=== PATIENT | female | born 1960 | race Caucasian/White ===

== ENCOUNTER 2023-06-19 19:03 | Emergency (ER) | payer OTHER, SELFPAY ==
[2023-06-19] VITALS (18 sets, daily range): BP systolic 121; BP diastolic 85; PULSE 69–82; RESP 26; TEMP 36.6; O2SAT 95–99; BMI 55.8
--- NOTE | 2023-06-19 19:52 | ED_ITS ---
HPI - General Adult General Chief complaint: Shortness of Breath/Dyspnea Stated complaint: Short of breath Time Seen by Provider: 06/19/23 19:41 History of Present Illness HPI narrative: Pt arrives with BiPap in place . Pt has been sick w/ respiratory symptoms x 10 days. Worsened yesterday. Inspiratory and expiratory wheezes upon EMS arrival. Hx of sarcoidosis in bilateral lungs. Received Duoneb x 2 by EMS. Received 125mg Solumedrol @ 1850 per EMS. BG 130. 20G in R AC 63-year-old woman presenting to the emergency department with marked dyspnea in the setting of a history of sarcoidosis. Has been sick over the last 10+ days. 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 Has just completed a course of doxycycline. Is always maintained on 10 mg daily of prednisone and more recently initiated on Imuran. She has not needed home O2. Last night started to feel some tightness in her chest and had thickened phlegm and worsened over the course of today. She reports being quite wheezy and using her rescue inhaler with even just a few steps. She has been DuoNebbed twice by EMS. I would note how jittery she is on initial assessment. She was also given Solu- Medrol by EMS. Has not had a fever. Notes herself now feeling much better. Was placed briefly on BiPAP and now on OxyMask 2.5 L maintaining mid 90s on oxygen saturation. No particular exposures. Related Data Home Medications Medication Instructions Recorded Confirmed albuterol 90 mcg/actuation aerosol mcg inhalation 06/19/23 inhaler albuterol sulfate 1.25 mg/3 mL 1.25 mg inhalation Q6-8H PRN 06/19/23 06/19/23 solution for nebulization amlodipine 10 mg tablet 10 mg PO DAILY 06/19/23 06/19/23 aspirin 81 mg tablet,delayed 81 mg PO DAILY 06/19/23 06/19/23 release (Adult Aspirin Regimen) azathioprine 100 mg tablet 100 mg PO DAILY 06/19/23 06/19/23 cetirizine 10 mg tablet (All Day 10 mg PO DAILY 06/19/23 06/19/23 Allergy (cetirizine)) furosemide 40 mg tablet 40 mg PO DAILY PRN 06/19/23 06/19/23 hydralazine 25 mg tablet 25 mg PO BID 06/19/23 06/19/23 ipratropium 0.5 mg-albuterol 3 mg 3 ml inhalation Q4-6H PRN 06/19/23 06/19/23 (2.5 mg base)/3 mL nebulization soln magnesium gluconate 27 mg 27 mg PO BID 06/19/23 06/19/23 magnesium (500 mg) tablet metoprolol succinate 25 mg 25 mg PO BID 06/19/23 06/19/23 tablet,extended release 24 hr ondansetron 4 mg disintegrating 4 mg PO Q6-8H PRN 06/19/23 06/19/23 tablet prednisone 10 mg tablet 10 mg PO DAILY 06/19/23 06/19/23 sertraline 50 mg tablet 50 mg PO DAILY 06/19/23 06/19/23 Previous Rx's Medication Instructions Recorded ipratropium 0.5 mg-albuterol 3 mg 3 ml inhalation Q8H PRN #90 mL 06/19/23 (2.5 mg base)/3 mL nebulization soln Allergies Allergy/AdvReac Type Severity Reaction Status Date / Time amoxicillin Allergy Hives Verified 06/19/23 20:04 azithromycin Allergy Hives Verified 06/19/23 20:04 codeine Allergy Vomiting Verified 06/19/23 20:04 methotrexate Allergy Blurry Verified 06/19/23 20:04 Vision Penicillins Allergy Hives Verified 06/19/23 20:04 Review of Systems Status of ROS: Reports: 6 or more systems reviewed and unremarkable except as noted in History and below PFSH [facility] Social History Smoking Status: Former smoker How often do you have a drink containing alcohol: never AUDIT-C Alcohol total score: 0 Non-prescribed substance use: marijuana (any form) Exam Narrative: Exam Narrative: Attended by family. Extremely tremulous. A little breathless/tachypneic but able to carry on a conversation without significant difficulty. Lungs with diffuse breath sounds and good air movement. I do not hear any wheeze at this time. Subtly coarse sounds throughout the lungs. Oropharynx is sticky. Cranial nerves 2-12 look to be intact. Heart is in an elevated and regular rate. Distant. Abdomen obese soft. Lower extremity changes more consistent with body habitus than edema. Appears well-perfused peripherally. Skin without apparent rash. Did not examine for intertrigo. Const: Vital Signs, click to edit/add: Vital Signs - 24 hr 06/19/23 19:10 06/19/23 19:15 06/19/23 19:16 Temperature Pulse Rate 81 78 72 Pulse Rate [Pulse Oximeter] Respiratory Rate Blood Pressure 121/85 Blood Pressure [Ri ght Upper Arm] Pulse Oximetry 99 99 99 Oxygen Delivery Me thod Oxygen Flow Rate 06/19/23 19:22 06/19/23 19:30 06/19/23 19:45 Temperature 97.8 F Pulse Rate 78 74 Pulse Rate [Pulse Oximeter] 82 Respiratory Rate 26 H Blood Pressure Blood Pressure [Ri ght Upper Arm] 121/85 Pulse Oximetry 98 99 98 Oxygen Delivery Me thod OxyMask Oxygen Flow Rate 5 06/19/23 20:00 06/19/23 20:15 06/19/23 20:30 Temperature Pulse Rate 74 77 81 Pulse Rate [Pulse Oximeter] Respiratory Rate Blood Pressure Blood Pressure [Ri ght Upper Arm] Pulse Oximetry 98 97 97 Oxygen Delivery Me thod Oxygen Flow Rate 06/19/23 20:45 06/19/23 21:00 06/19/23 21:15 Temperature Pulse Rate 79 78 73 Pulse Rate [Pulse Oximeter] Respiratory Rate Blood Pressure Blood Pressure [Ri ght Upper Arm] Pulse Oximetry 96 97 96 Oxygen Delivery Me thod Oxygen Flow Rate 06/19/23 21:30 06/19/23 21:45 06/19/23 22:00 Temperature Pulse Rate 69 82 74 Pulse Rate [Pulse Oximeter] Respiratory Rate Blood Pressure Blood Pressure [Ri ght Upper Arm] Pulse Oximetry 97 98 97 Oxygen Delivery Me thod Oxygen Flow Rate 06/19/23 22:15 06/19/23 22:30 06/19/23 22:45 Temperature Pulse Rate 82 80 79 Pulse Rate [Pulse Oximeter] Respiratory Rate Blood Pressure Blood Pressure [Ri ght Upper Arm] Pulse Oximetry 97 95 96 Oxygen Delivery Me thod Oxygen Flow Rate Documenting provider has reviewed patient's vital signs: yes Course Vital Signs Vital signs: Initial Vital Signs Pulse Rate 81 06/19/23 19:10 Pulse Oximetry 99 06/19/23 19:10 Vital Signs Pulse Rate 81 06/19/23 19:10 Pulse Oximetry 99 06/19/23 19:10 Temperature 97.8 F 06/19/23 19:22 Pulse Rate 79 06/19/23 22:45 Respiratory Rate 26 H 06/19/23 19:22 Blood Pressure 121/85 06/19/23 19:22 Pulse Oximetry 96 06/19/23 22:45 Oxygen Delivery Method OxyMask 06/19/23 19:22 Oxygen Flow Rate 5 06/19/23 19:22 Medications Administered Medications: Discontinued Medications Generic Name Dose Route Start Last Admin Trade Name Freq PRN Reason Stop Dose Admin Albuterol/Ipratropium 2 neb 06/19/23 23:20 06/19/23 23:41 Iprat-Albut 0.5-2.5 Mg/3 Ml Neb IH 06/19/23 23:21 Not Given ONCE ONE Medical Decision Making MDM Narrative Medical decision making narrative: I suspect possibly some mucous plugging and after conversation with Ms. Pennington exacerbating reactive airway and probable significant exacerbation of anxiety as well. Has been treated virtually in should be assessed for potential pneumonia, possibly pulmonary embolus, pneumothorax. I wonder if has been overdosing with albuterol and potentially exacerbating her symptoms. Continued on OxyMask and will be working at weaning. Pending effect of Solu- Medrol. Labs are overall reassuring. VBG's were obtained following initial treatment and perhaps less useful. CRP elevated at 3.5 though perhaps not unexpectedly. One-view Chest x-ray reviewed by me with diffuse mild interstitial prominence. No infiltrate Radiology over-read as below Findings/Impression: Cardiac size within normal limits. The monique are mildly prominent which may be related to the patient`s history of sarcoidosis. Normal pulmonary vasculature. No focal infiltrate, effusion, or pneumothorax. No acute osseous abnormality. Did discuss this case with our hospitalist with concerns of potential admission however I was anticipating continued improvement here in the department and likely discharge. Noted by hospitalist upon review of records was recommendation for sleep study. I did discuss this with Ms. Pennington and she anticipates going forward with this; sounds like it might be a remote assessment. She continued to improve over time in the emergency department. No events on cardiac/vascular sonographer. Oxygen saturation mid to upper 90s on room air. Did desat with ambulation but recovered very quickly. Noted herself to feel ?110% better?. See patient discharge plan Medical Records Medical records reviewed: Yes I reviewed the patient's medical records Lab Data Lab results reviewed: Yes I reviewed the patient's lab results Labs: Lab Results 06/19/23 06/19/23 06/19/23 Range/Units 20:24 20:28 20:28 WBC 9.31 (4.50-11.00) K/uL RBC 4.36 (4.00-5.20) m/uL Hgb 11.0 L (12.0-16.0) gm/dL Hct 36.8 (33.0-51.0) % MCV 84 (80-100) fL MCH 25 L (26-34) pg MCHC 30 L (32-36) gm/dL RDW Coeff of Donna 17.7 H (11.5-15.5) % Plt Count 311 (140-440) K/uL Neut % (Auto) 95.8 H (42.0-72.0) % Lymph % (Auto) 2.4 L (20-44) % [place] % (Auto) 1.4 (0.0-11.0) % Eos % (Auto) 0.0 (0.0-7.0) % Baso % (Auto) 0.1 (0.0-3.0) % Neut # (Auto) 8.90 H (1.7-7.0) K/uL Lymph # (Auto) 0.20 L (0.90-2.90) K/uL [place] # (Auto) 0.10 (0.00-0.90) K/UL Eos # (Auto) 0.00 (0.00-0.50) K/uL Baso # (Auto) 0.01 (0.00-0.30) K/uL Abs Immat Gran (auto) 0.03 (0.00-0.30) K/uL Imm/Tot Granulo (auto) 0.3 % VBG pH (7.32-7.43) VBG pCO2 (40-50) mmHG VBG pO2 (25-47) mmHG VBG HCO3 (21-28) mmol/L Sodium 142 (135-149) mmol/L Potassium 3.8 (3.6-5.1) mmol/L Chloride 106 (96-114) mmol/L Carbon Dioxide 24 (20-32) mmol/L Anion Gap 12 (7-15) mEq/L BUN 9 (7-30) mg/dL Creatinine 1.0 (0.5-1.5) mg/dL Estimated Creat Clear 50.37 Estimated GFR 64 ml/min Glucose 133 H (60-115) mg/dL Calcium 9.3 (8.4-10.6) mg/dL Magnesium 2.1 Cancelled (1.5-2.6) mg/dL C-Reactive Protein 3.5 H (0.5-1.0) mg/dL SARS-CoV-2 (PCR) Negative SARS-CoV-2 (Negative) Influenza Type A (PCR) Negative PCR FLU A (Negative) Influenza Type B (PCR) Negative PCR FLU B (Negative) RSV (PCR) Negative PCR RSV (Negative) 06/19/23 Range/Units 20:49 WBC (4.50-11.00) K/uL RBC (4.00-5.20) m/uL Hgb (12.0-16.0) gm/dL Hct (33.0-51.0) % MCV (80-100) fL MCH (26-34) pg MCHC (32-36) gm/dL RDW Coeff of Donna (11.5-15.5) % Plt Count (140-440) K/uL Neut % (Auto) (42.0-72.0) % Lymph % (Auto) (20-44) % [place] % (Auto) (0.0-11.0) % Eos % (Auto) (0.0-7.0) % Baso % (Auto) (0.0-3.0) % Neut # (Auto) (1.7-7.0) K/uL Lymph # (Auto) (0.90-2.90) K/uL [place] # (Auto) (0.00-0.90) K/UL Eos # (Auto) (0.00-0.50) K/uL Baso # (Auto) (0.00-0.30) K/uL Abs Immat Gran (auto) (0.00-0.30) K/uL Imm/Tot Granulo (auto) % VBG pH 7.411 (7.32-7.43) VBG pCO2 37 L (40-50) mmHG VBG pO2 71.4 H (25-47) mmHG VBG HCO3 24 (21-28) mmol/L Sodium (135-149) mmol/L Potassium (3.6-5.1) mmol/L Chloride (96-114) mmol/L Carbon Dioxide (20-32) mmol/L Anion Gap (7-15) mEq/L BUN (7-30) mg/dL Creatinine (0.5-1.5) mg/dL Estimated Creat Clear Estimated GFR ml/min Glucose (60-115) mg/dL Calcium (8.4-10.6) mg/dL Magnesium (1.5-2.6) mg/dL C-Reactive Protein (0.5-1.0) mg/dL SARS-CoV-2 (PCR) (Negative) Influenza Type A (PCR) (Negative) Influenza Type B (PCR) (Negative) RSV (PCR) (Negative) ECG Data Attestation: I personally reviewed and interpreted this ECG as follows: (Normal sinus rhythm, baseline irritability, rate of 80 without apparent ischemic changes.) Discharge Plan Discharge Clinical Impression: Respiratory failure, Anxiety, Sarcoidosis Patient Disposition: Home w/ Parent or Adult Condition: Improved Additional Instructions: Sounds like this all may have been a combination of underlying sarcoidosis, mucus production/plugging, reactive airway/asthma worsened by anxiety. You gotten all the steroid that you need for today and into part of tomorrow. Please call to your pulmonology clinic tomorrow to see how they might like to dose you on steroids over the next week or 2. I appreciate how they are available and involved in your care. EMS gave you 125 mg of Solu-Medrol. They also gave you to DuoNebs. You were briefly on BiPAP. Please move forward with scheduling the sleep study. We are discharging you with DuoNebs and a prescription of more to fill. If the pulmonology clinic is okay with this, I would dose your DuoNebs regularly 3 times a day over the next 3-4 days. Can use albuterol if needed between. 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 Although you probably could probably get by dosing the prednisone that you have currently per their recommendations. Prescriptions: New ipratropium-albuterol 0.5 mg-3 mg(2.5 mg base)/3 mL solution for nebulization 3 ml inhalation Q8H PRNQty: 90 0RF No Action albuterol 90 mcg/actuation aerosol inhalation hydralazine 25 mg tablet 25 mg PO BID metoprolol succinate 25 mg tablet extended release 24 hr 25 mg PO BID amlodipine 10 mg tablet 10 mg PO DAILY azathioprine 100 mg tablet 100 mg PO DAILY magnesium gluconate 27 mg magnesium (500 mg) tablet 27 mg PO BID aspirin [Adult Aspirin Regimen] 81 mg tablet,delayed release (DR/EC) 81 mg PO DAILY albuterol sulfate 1.25 mg/3 mL solution for nebulization 1.25 mg inhalation Q6-8H PRN ipratropium-albuterol 0.5 mg-3 mg(2.5 mg base)/3 mL solution for nebulization 3 ml inhalation Q4-6H PRN prednisone 10 mg tablet 10 mg PO DAILY cetirizine [All Day Allergy (cetirizine)] 10 mg tablet 10 mg PO DAILY sertraline 50 mg tablet 50 mg PO DAILY ondansetron 4 mg tablet,disintegrating 4 mg PO Q6-8H PRN furosemide 40 mg tablet 40 mg PO DAILY PRN Follow Up/Referrals: Provider,Not a Local [Primary Care Provider] - Stand Alone Forms: [employer] Info Instructions
--- NOTE | 2023-06-19 20:03 | CRLHL7_ITS ---
For Patients: As a result of the Cures Act, medical imaging exams and procedure reports are released immediately into your electronic medical record. You may view this report before your referring provider. If you have questions, please contact your health care provider. Indication: Hypoxia, history of sarcoid Technique: Chest 1 view Comparison: None Findings/Impression: Cardiac size within normal limits. The monique are mildly prominent which may be related to the patient`s history of sarcoidosis. Normal pulmonary vasculature. No focal infiltrate, effusion, or pneumothorax. No acute osseous abnormality. Dictated by Savannah Meek MD @ 06/19/2023 9:46:43 PM (Electronically Signed)
[2023-06-19 20:36] LABS: Basophils Absolute Auto 0.01 K/uL (0.00-0.30); Basophils Percent Auto 0.1 % (0.0-3.0); Hematocrit 36.8 % (33.0-51.0); Immature Granulocytes Abs Auto 0.03 K/uL (0.00-0.30); Immature Granulocytes Pct Auto 0.3 %; Lymphocytes Percent Auto 2.4 % (20-44); Mean Corpuscular HGB Conc 30 gm/dL (32-36); Mean Corpuscular Hemoglobin 25 pg (26-34); Mean Corpuscular Volume 84 fL (80-100); Monocytes Percent Auto 1.4 % (0.0-11.0); Neutrophils Percent Auto 95.8 % (42.0-72.0); Platelet Count* 311 K/uL (140-440); RDW Coefficient of Variation % 17.7 % (11.5-15.5); Red Blood Count 4.36 m/uL (4.00-5.20); White Blood Count* 9.31 K/uL (4.50-11.00)
[2023-06-19 20:40] LABS: Slide Review Reflex No
[2023-06-19 20:50] LABS: Chloride* 106 mmol/L (96-114); Sodium* 142 mmol/L (135-149)
[2023-06-19 20:51] LABS: Potassium* 3.8 mmol/L (3.6-5.1)
[2023-06-19 20:53] LABS: Est. Creatinine Clearance* 50.37; Estimated Glomerular Filt Rate 64 ml/min
[2023-06-19 20:54] LABS: Anion Gap 12 mEq/L (7-15); Blood Urea Nitrogen* 9 mg/dL (7-30); Calcium* 9.3 mg/dL (8.4-10.6); Carbon Dioxide* 24 mmol/L (20-32); Glucose* 133 mg/dL (60-115); Magnesium* 2.1 mg/dL (1.5-2.6)
[2023-06-19 20:56] LABS: HCO3 VBG 24 mmol/L (21-28); PCO2 VBG 37 mmHG (40-50); PO2 VBG 71.4 mmHG (25-47); pH VBG 7.411 (7.32-7.43)
[2023-06-19 20:57] LABS: C Reactive Protein* 3.5 mg/dL (0.5-1.0)
[2023-06-19 21:14] LABS: PCR FLU A Negative PCR FLU A (Negative); PCR FLU B Negative PCR FLU B (Negative); PCR RSV Negative PCR RSV (Negative)
[2023-06-19 21:18] LABS: SARS PCR* Negative SARS-CoV-2 (Negative)
--- NOTE | 2023-06-19 23:42 | ED.NURSE ---
ordered josue cronin to be sent home with pt as they are not in the instymed
== END 2023-06-20 00:05 | disposition home or self-care (01) ==
PROVIDERS: Emergency Provider Family Medicine
DX: J96.90 Respiratory failure, unspecified, unspecified whether with hypoxia or hypercapnia (principal); F41.9 Anxiety disorder, unspecified; D86.9 Sarcoidosis, unspecified
CPT/HCPCS: 36415; 71045; 80048; 82803; 83735; 85025; 86140; 87631; 93005; 94761; 99284; 99285

== ENCOUNTER 2023-07-07 14:46 | Observation (INO) | payer OTHER, SELFPAY ==
[2023-07-07 15:00] VITALS: BP 150/83; PULSE 72; RESP 32; TEMP 36.8; O2SAT 93; BMI 55.8
--- NOTE | 2023-07-07 15:06 | ED_ITS ---
HPI - SOB/Dyspnea General Time Seen by Provider: 15:06 Date Seen: 07/07/23 Chief Complaint: Shortness of Breath/Dyspnea Stated Complaint: Low O2 Time Seen by Provider: 07/07/23 15:00 Source: patient Mode of arrival: ambulatory Limitations: no limitations History of Present Illness HPI Narrative: 63-year-old female who presents today with shortness of breath. Patient has history of sarcoidosis, anxiety, hypertension. Notes increased shortness of breath for last couple of days, also pain in the right side of the chest when she breathes. Denies fevers, cough, runny nose, nausea, vomiting, diarrhea. Chronic swelling of the bilateral lower extremities which he says is stable. Using DuoNebs and also on chronic prednisone currently 10 mg daily. Related Data Home Medications Medication Instructions Recorded Confirmed albuterol 90 mcg/actuation aerosol mcg inhalation 06/19/23 inhaler albuterol sulfate 1.25 mg/3 mL 1.25 mg inhalation Q6-8H PRN 06/19/23 06/19/23 solution for nebulization amlodipine 10 mg tablet 10 mg PO DAILY 06/19/23 06/19/23 aspirin 81 mg tablet,delayed 81 mg PO DAILY 06/19/23 06/19/23 release (Adult Aspirin Regimen) azathioprine 100 mg tablet 100 mg PO DAILY 06/19/23 06/19/23 cetirizine 10 mg tablet (All Day 10 mg PO DAILY 06/19/23 06/19/23 Allergy (cetirizine)) furosemide 40 mg tablet 40 mg PO DAILY PRN 06/19/23 06/19/23 hydralazine 25 mg tablet 25 mg PO BID 06/19/23 06/19/23 ipratropium 0.5 mg-albuterol 3 mg 3 ml inhalation Q4-6H PRN 06/19/23 06/19/23 (2.5 mg base)/3 mL nebulization soln magnesium gluconate 27 mg 27 mg PO BID 06/19/23 06/19/23 magnesium (500 mg) tablet metoprolol succinate 25 mg 25 mg PO BID 06/19/23 06/19/23 tablet,extended release 24 hr ondansetron 4 mg disintegrating 4 mg PO Q6-8H PRN 06/19/23 06/19/23 tablet prednisone 10 mg tablet 10 mg PO DAILY 06/19/23 06/19/23 sertraline 50 mg tablet 50 mg PO DAILY 06/19/23 06/19/23 Previous Rx's Medication Instructions Recorded ipratropium 0.5 mg-albuterol 3 mg 3 ml inhalation Q8H PRN #90 mL 06/19/23 (2.5 mg base)/3 mL nebulization soln Allergies Allergy/AdvReac Type Severity Reaction Status Date / Time amoxicillin Allergy Hives Verified 06/19/23 20:04 azithromycin Allergy Hives Verified 06/19/23 20:04 codeine Allergy Vomiting Verified 06/19/23 20:04 methotrexate Allergy Blurry Verified 06/19/23 20:04 Vision Penicillins Allergy Hives Verified 06/19/23 20:04 PFSH PFS Social History Smoking Status: Former smoker Second hand tobacco smoke exposure: No How often do you have a drink containing alcohol: never How often do you have six or more drinks on one occasion: Never AUDIT-C Alcohol total score: 0 Non-prescribed substance use: marijuana (any form) Exam Narrative: Exam Narrative: General: Well-developed and well-nourished, no acute distress Head: Atraumatic and normocephalic Eyes: Pupils are equal reactive, extraocular motions intact, conjunctiva clear ENT: External nose and ears are normal, posterior pharynx without erythema or exudate Neck: No midline cervical tenderness, full spontaneous range of motion the neck, trachea midline, no adenopathy Heart: Regular rate and rhythm no murmurs or thrills Lungs: Tachypnea, poor air movement throughout with crackles in the right base and trace expiratory wheezes on the left Abdomen: Soft, nontender, nondistended with active bowel sounds Musculoskeletal: No tenderness, deformity, or edema Neurologic: Awake, alert, and oriented x3, no gross focal neurologic deficits, cranial nerves intact as tested Psych: Mood and affect are appropriate Skin: No rashes Const: Vital Signs, click to edit/add: Vital Signs - 24 hr 07/07/23 15:00 Temperature 98.2 F Pulse Rate [Pulse Oximeter] 72 Respiratory Rate 32 H Blood Pressure [Ri ght Forearm] 150/83 H Pulse Oximetry 93 Oxygen Delivery Me thod Room Air Course Course ED Course: Patient seen and examined, prior records reviewed patient with history of sarcoid who comes in with increased shortness of breath for couple of days. On exam, oxygen saturation in the low 90s, tachypneic with poor air movement bilaterally and crackles on the right, expiratory wheeze on the left. Labs including CBC, venous gas, basic metabolic panel are ordered and CT PE study will be performed. DuoNeb ordered emergency department. Reevaluation(s) Time of Reevaluation #1: 15:59 Reevaluation #1: CT scan of the chest intermittently interpreted by me does not demonstrate any acute pulmonary emboli, no acute infiltrate or effusion. Time of Reevaluation #2: 17:25 Reevaluation #2: Labs independently interpreted by me with anemia which is new, prior hemoglobin of 11 versus 9.8 today, no black stools or other obvious source of blood loss. Venous blood gas with normal pH and no hypercarbia, pCO2 is actually slightly low likely representing hyperventilation. Basic metabolic panel is reassuring, respiratory panel negative for COVID, influenza, and RSV. Patient presents today with increased shortness of breath for couple of days, known pulmonary sarcoid. On exam, some wheezes or crackles. Minimal improvement with DuoNeb, patient will need to be admitted for oxygen, schedule nebulized treatments, further evaluation and treatment may need home oxygen. Time of Reevaluation #3: 18:10 Reevaluation #3: Patient recheck, after getting up and walking oxygen saturation in the 80s but rebounded on oxygen with mask. Oxygen was turned off and patient had desaturations to 87-88%. Oxygen restarted and will admit. Care discussed with Lauren Parr, hospitalist Vital Signs Vital signs: Initial Vital Signs Temperature 98.2 F 07/07/23 15:00 Temperature Source Temporal Artery Scan 07/07/23 15:00 Pulse Rate 72 07/07/23 15:00 Pulse Rhythm Regular 07/07/23 15:00 Respiratory Rate 32 H 07/07/23 15:00 Blood Pressure 150/83 H 07/07/23 15:00 Blood Pressure Mean 105 07/07/23 15:00 Blood Pressure Position Supine 07/07/23 15:00 Pulse Oximetry 93 07/07/23 15:00 Oxygen Delivery Method Room Air 07/07/23 15:00 Vital Signs Temperature 98.2 F 07/07/23 15:00 Pulse Rate 72 07/07/23 15:00 Respiratory Rate 32 H 07/07/23 15:00 Blood Pressure 150/83 H 07/07/23 15:00 Pulse Oximetry 93 07/07/23 15:00 Oxygen Delivery Method Room Air 07/07/23 15:00 Temperature 98.2 F 07/07/23 15:00 Pulse Rate 72 07/07/23 15:00 Respiratory Rate 32 H 07/07/23 15:00 Blood Pressure 150/83 H 07/07/23 15:00 Pulse Oximetry 93 07/07/23 15:00 Oxygen Delivery Method Room Air 07/07/23 15:00 Medications Administered Medications: Discontinued Medications Generic Name Dose Route Start Last Admin Trade Name Freq PRN Reason Stop Dose Admin Albuterol/Ipratropium 1 neb 07/07/23 16:41 07/07/23 16:54 Iprat-Albut 0.5-2.5 Mg/3 Ml Neb IH 07/07/23 16:42 1 neb ONCE ONE Administration Methylprednisolone Sodium Succinate 125 mg 07/07/23 16:05 07/07/23 16:11 Methylprednisolone Sod Succ 62.5 Mg/Ml (125) IVP 07/07/23 16:06 125 mg ONCE ONE Administration MDM - SOB/Dyspnea Lab Data Labs: Lab Results 07/07/23 07/07/23 Range/Units 15:30 15:34 WBC 6.51 (4.50-11.00) K/uL RBC 3.86 L (4.00-5.20) m/uL Hgb 9.8 L (12.0-16.0) gm/dL Hct 33.2 (33.0-51.0) % MCV 86 (80-100) fL MCH 25 L (26-34) pg MCHC 30 L (32-36) gm/dL RDW Coeff of Donna 18.3 H (11.5-15.5) % Plt Count 260 (140-440) K/uL Neut % (Auto) 86.2 H (42.0-72.0) % Lymph % (Auto) 8.1 L (20-44) % [place] % (Auto) 4.3 (0.0-11.0) % Eos % (Auto) 0.6 (0.0-7.0) % Baso % (Auto) 0.3 (0.0-3.0) % Neut # (Auto) 5.60 (1.7-7.0) K/uL Lymph # (Auto) 0.50 L (0.90-2.90) K/uL [place] # (Auto) 0.30 (0.00-0.90) K/UL Eos # (Auto) 0.04 (0.00-0.50) K/uL Baso # (Auto) 0.02 (0.00-0.30) K/uL Abs Immat Gran (auto) 0.03 (0.00-0.30) K/uL Imm/Tot Granulo (auto) 0.5 % VBG pH 7.381 (7.32-7.43) VBG pCO2 39 L (40-50) mmHG VBG pO2 64.7 H (25-47) mmHG VBG HCO3 23 (21-28) mmol/L Sodium 138 (135-149) mmol/L Potassium 3.9 (3.6-5.1) mmol/L Chloride 109 (96-114) mmol/L Carbon Dioxide 19 L (20-32) mmol/L Anion Gap 10 (7-15) mEq/L BUN 12 (7-30) mg/dL Creatinine 0.9 (0.5-1.5) mg/dL Estimated Creat Clear 50.37 Estimated GFR 72 ml/min Glucose 97 (60-115) mg/dL Calcium 8.7 (8.4-10.6) mg/dL Magnesium 1.9 (1.5-2.6) mg/dL NT-Pro-B Natriuret Pep 686 pg/mL SARS-CoV-2 (PCR) Negative SARS-CoV-2 (Negative) Influenza Type A (PCR) Negative PCR FLU A (Negative) Influenza Type B (PCR) Negative PCR FLU B (Negative) RSV (PCR) Negative PCR RSV (Negative) Discharge Plan Discharge Clinical Impression: Sarcoidosis of lung, Acute hypoxemic respiratory failure Patient Disposition: Admitted As Observation
--- NOTE | 2023-07-07 15:15 | CRLHL7_ITS ---
For Patients: As a result of the Century Cures Act, medical imaging exams and procedure reports are released immediately into your electronic medical record. You may view this report before your referring provider. If you have questions, please contact your health care provider. INDICATION: Shortness of breath TECHNIQUE: CT chest PE was acquired with 95 cc Isovue 370 IV contrast. COMPARISON: None. FINDINGS: Heart and vasculature: Examination is limited secondary to contrast bolus timing; however, there are no appreciable pulmonary emboli. The heart is normal in size. No pericardial effusion. Coronary artery calcifications. Lungs and pleura: Moderate centrilobular and paraseptal emphysematous changes bilaterally. Linear opacities involving the posterior aspect of the right upper lobe favored to represent atelectasis/scarring. Trace bibasilar atelectasis. No suspicious pulmonary nodules or masses. Lymph nodes/mediastinum: No mediastinal, hilar, or axillary adenopathy. Chest wall: No masses. Upper abdomen: No acute process. Well-circumscribed low-density lesion in the right hepatic lobe, incompletely evaluated on this examination may represent a cyst/hemangioma. Questionable gallbladder enhancing lesion versus gallstones. Bones: Unremarkable for age. IMPRESSION: 1. No pulmonary embolism. 2. Moderate emphysema. 3. Questionable enhancing gallbladder wall lesion versus gallstones. Recommend correlation with prior imaging if available; otherwise, recommend dedicated right upper quadrant ultrasound or CT abdomen with and without contrast for further assessment. Please note that all CT scans at this facility use dose modulation, iterative reconstruction, and/or weight-based dosing when appropriate to reduce radiation dose to as low as reasonably achievable. Dictated by Crow Mckeon MD @ 07/07/2023 4:59:13 PM (Electronically Signed)
[2023-07-07 15:51] LABS: HCO3 VBG 23 mmol/L (21-28); PCO2 VBG 39 mmHG (40-50); PO2 VBG 64.7 mmHG (25-47); pH VBG 7.381 (7.32-7.43)
[2023-07-07 15:58] LABS: Basophils Absolute Auto 0.02 K/uL (0.00-0.30); Basophils Percent Auto 0.3 % (0.0-3.0); Eosinophils Absolute Auto 0.04 K/uL (0.00-0.50); Eosinophils Percent Auto 0.6 % (0.0-7.0); Hematocrit 33.2 % (33.0-51.0); Hemoglobin* 9.8 gm/dL (12.0-16.0); Immature Granulocytes Abs Auto 0.03 K/uL (0.00-0.30); Immature Granulocytes Pct Auto 0.5 %; Lymphocytes Percent Auto 8.1 % (20-44); Mean Corpuscular HGB Conc 30 gm/dL (32-36); Mean Corpuscular Hemoglobin 25 pg (26-34); Mean Corpuscular Volume 86 fL (80-100); Monocytes Percent Auto 4.3 % (0.0-11.0); Neutrophils Percent Auto 86.2 % (42.0-72.0); Platelet Count* 260 K/uL (140-440); RDW Coefficient of Variation % 18.3 % (11.5-15.5); Red Blood Count 3.86 m/uL (4.00-5.20); White Blood Count* 6.51 K/uL (4.50-11.00)
[2023-07-07 16:03] LABS: Slide Review Reflex No
[2023-07-07] MEDS: METHYLPREDNISOLONE SOD SUCC 62.5 MG/ML (125) 125 MG IVP (16:11)
[2023-07-07 16:13] LABS: Chloride* 109 mmol/L (96-114); Potassium* 3.9 mmol/L (3.6-5.1); Sodium* 138 mmol/L (135-149)
[2023-07-07 16:16] LABS: Anion Gap 10 mEq/L (7-15); Blood Urea Nitrogen* 12 mg/dL (7-30); Calcium* 8.7 mg/dL (8.4-10.6); Carbon Dioxide* 19 mmol/L (20-32); Creatinine* 0.9 mg/dL (0.5-1.5); Est. Creatinine Clearance* 50.37; Estimated Glomerular Filt Rate 72 ml/min; Glucose* 97 mg/dL (60-115)
[2023-07-07 16:38] LABS: PCR FLU A Negative PCR FLU A (Negative); PCR FLU B Negative PCR FLU B (Negative); PCR RSV Negative PCR RSV (Negative)
[2023-07-07] MEDS: IPRAT-ALBUT 0.5-2.5 MG/3 ML NEB 1 NEB IH (16:54)
[2023-07-07 17:16] LABS: SARS PCR* Negative SARS-CoV-2 (Negative)
[2023-07-07 17:48] LABS: Magnesium* 1.9 mg/dL (1.5-2.6)
[2023-07-07 18:04] LABS: NT Pro B Type NatriureticPept* 686 pg/mL
--- NOTE | 2023-07-07 19:35 | PM.IMHP1 ---
Hospitalist- H&P: HPI History of Present Illness Date Seen: 07/07/23 Chief complaint: Low O2 Narrative: Viktoria Pennington is a 63 year old female past medical history significant for sarcoidosis, anxiety, migraines, psoriasis, hypertension, history of PE, brain aneurysm is admitted to the medical floor from the ED for further management of shortness of breath with hypoxia in setting of interstitial lung disease. Patient reports increasing shortness of breath since Monday. Unknown trigger. Reports pain over the right side of her chest which came on after coughing in the middle the night. Is reproducible with deep breath, cough, palpation. Has not had any fevers or chills. Denies recent nausea vomiting or diarrhea. Has chronic swelling of the bilateral lower extremities which she reports as stable. Patient is chronically on prednisone, currently 10 mg daily, following a taper. 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 Has been referred for a sleep study as well. She was most recently in the ED on 06/19/2023 for a hypoxic episode as well but was discharged to home after 110% improvement. Patient recently moved to [place] from the [facility]. Is looking for a new web page developer. Quit smoking several years ago. Smokes marijuana almost on a daily basis for chronic pain. Denies current alcohol use. Review of Systems Narrative: REVIEW OF SYSTEMS: Complete review of systems performed and negative unless otherwise stated in HPI or below. [facility] Medical History (Updated 07/07/23 @ 20:22 by Lauren Parr PA-C) Brain aneurysm ?I67.1 - Cerebral aneurysm, nonruptured (ICD-10) Psoriasis ?L40.9 - Psoriasis, unspecified (ICD-10) Migraine ?G43.909 - Migraine, unspecified, not intractable, without status migrainosus (ICD-10) Hx pulmonary embolism ?Z86.711 - Personal history of pulmonary embolism (ICD-10) Social History Smoking Status: Former smoker Second hand tobacco smoke exposure: No How often do you have a drink containing alcohol: never How often do you have six or more drinks on one occasion: Never AUDIT-C Alcohol total score: 0 Non-prescribed substance use: marijuana (any form) Meds Home Medications and Allergies Home Medications Medication Instructions Recorded Confirmed Type albuterol 90 mcg/actuation aerosol mcg inhalation 06/19/23 History inhaler albuterol sulfate 1.25 mg/3 mL 1.25 mg inhalation Q6-8H PRN 06/19/23 06/19/23 History solution for nebulization amlodipine 10 mg tablet 10 mg PO DAILY 06/19/23 06/19/23 History aspirin 81 mg tablet,delayed 81 mg PO DAILY 06/19/23 06/19/23 History release (Adult Aspirin Regimen) azathioprine 100 mg tablet 100 mg PO DAILY 06/19/23 06/19/23 History cetirizine 10 mg tablet (All Day 10 mg PO DAILY 06/19/23 06/19/23 History Allergy (cetirizine)) furosemide 40 mg tablet 40 mg PO DAILY PRN 06/19/23 06/19/23 History hydralazine 25 mg tablet 25 mg PO BID 06/19/23 06/19/23 History ipratropium 0.5 mg-albuterol 3 mg 3 ml inhalation Q4-6H PRN 06/19/23 06/19/23 History (2.5 mg base)/3 mL nebulization soln magnesium gluconate 27 mg 27 mg PO BID 06/19/23 06/19/23 History magnesium (500 mg) tablet metoprolol succinate 25 mg 25 mg PO BID 06/19/23 06/19/23 History tablet,extended release 24 hr ondansetron 4 mg disintegrating 4 mg PO Q6-8H PRN 06/19/23 06/19/23 History tablet prednisone 10 mg tablet 10 mg PO DAILY 06/19/23 06/19/23 History sertraline 50 mg tablet 50 mg PO DAILY 06/19/23 06/19/23 History Allergies Allergy/AdvReac Type Severity Reaction Status Date / Time amoxicillin Allergy Hives Verified 06/19/23 20:04 azithromycin Allergy Hives Verified 06/19/23 20:04 codeine Allergy Vomiting Verified 06/19/23 20:04 methotrexate Allergy Blurry Verified 06/19/23 20:04 Vision Penicillins Allergy Hives Verified 06/19/23 20:04 Exam Narrative: Exam Narrative: PHYSICAL EXAM General: Pleasant, conversant, NAD HEENT: Normocephalic, atraumatic, sclera white, EOMI, oral mucosa moist Cardiovascular: RRR, S1S2. Trace pitting edema Pulmonary: Diffusely diminished bilaterally without rhonchi, rales, expiratory wheezes. Mild dyspnea on nasal cannula. Right anterior chest pain reproducible with palpation. Abdominal: Obese, soft, nondistended, NTTP Neurological: Alert, answering questions appropriately, cranial nerves intact, no focal findings Extremities: No gross joint deformity or swelling. AROMI. Neurovascularly intact Skin: Warm, dry. Const: Vital Signs, click to edit/add: Vital Signs - 24 hr 07/07/23 15:00 Temperature 98.2 F Pulse Rate [Pulse Oximeter] 72 Respiratory Rate 32 H Blood Pressure [Ri ght Forearm] 150/83 H Pulse Oximetry 93 Oxygen Delivery Me thod Room Air Hospitalist - H&P: Result Labs Labs: Short CBC 07/07/23 Range/Units 15:30 WBC 6.51 (4.50-11.00) K/uL Hgb 9.8 L (12.0-16.0) gm/dL Hct 33.2 (33.0-51.0) % Plt Count 260 (140-440) K/uL BMP 07/07/23 15:30 Sodium 138 Potassium 3.9 Chloride 109 Carbon Dioxide 19 L BUN 12 Creatinine 0.9 Glucose [address] scan - chest: Attestation: I have reviewed the pertinent imaging results. Radiologist's impression: CT chest PE was acquired with 95 cc Isovue 370 IV contrast. COMPARISON: None. FINDINGS: Heart and vasculature: Examination is limited secondary to contrast bolus timing; however, there are no appreciable pulmonary emboli. The heart is normal in size. No pericardial effusion. Coronary artery calcifications. Lungs and pleura: Moderate centrilobular and paraseptal emphysematous changes bilaterally. Linear opacities involving the posterior aspect of the right upper lobe favored to represent atelectasis/scarring. Trace bibasilar atelectasis. No suspicious pulmonary nodules or masses. Lymph nodes/mediastinum: No mediastinal, hilar, or axillary adenopathy. Chest wall: No masses. Upper abdomen: No acute process. Well-circumscribed low-density lesion in the right hepatic lobe, incompletely evaluated on this examination may represent a cyst/hemangioma. Questionable gallbladder enhancing lesion versus gallstones. Bones: Unremarkable for age. IMPRESSION: 1. No pulmonary embolism. 2. Moderate emphysema. 3. Questionable enhancing gallbladder wall lesion versus gallstones. Recommend correlation with prior imaging if available; otherwise, recommend dedicated right upper quadrant ultrasound or CT abdomen with and without contrast for further assessment. Assessment and Plan Assessment and plan (1) Acute hypoxemic respiratory failure: Problem comment: -in setting of chronic sarcoidosis, interstitial lung disease -awoke with oxygen saturations of 74% this morning -unknown trigger. Most recently ill with flare approximately 3 weeks ago -CT negative for PE, noted moderate emphysema. 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 -start prednisone 40 mg daily following burst dose IV Solu-Medrol in ED, will need taper at discharge Status: Acute (3) Interstitial lung disease: Problem comment: -sarcoidosis as above Status: Acute (4) Sleep apnea: Problem comment: -will need formal study ([facility] pulmonology has placed an order) Status: Acute (5) Hypertension: Problem comment: -continue home medications Status: Acute (6) Abnormal CT scan, gallbladder: Problem comment: -recommend dedicated right upper quadrant ultrasound or CT abdomen with and without contrast for further assessment -no abdominal pain complaints, nausea, vomiting Status: Acute Plan CODE: DNR/DNI as discussed with patient VTE PPX: Enoxaparin Disposition: Observation
[2023-07-07 20:25] VITALS: RESP 14; O2SAT 94
[2023-07-07] MEDS: ENOXAPARIN 40 MG/0.4 ML INJ SUBCUT (21:51)
[2023-07-07] MEDS: HYDRALAZINE 25 MG TABLET PO (21:51)
[2023-07-07] MEDS: METOPROLOL SUCCINATE (XL) 25 MG TAB PO (21:51)
[2023-07-07] MEDS: SODIUM CHLORIDE 0.9 % (FLUSH) 10 ML SYRINGE 5 ML IVF (21:51)
[2023-07-07 21:59] VITALS: BP 147/72; PULSE 80; RESP 14; TEMP 36.8; O2SAT 94; BMI 54.3
[2023-07-07] MEDS: ACETAMINOPHEN 325 MG TABLET PO (22:28)
[2023-07-07 22:53] VITALS: PULSE 82
[2023-07-07 23:00] VITALS: O2SAT 94
[2023-07-07 23:13] VITALS: BP 152/75; PULSE 85; RESP 18; TEMP 36.5; O2SAT 94
[2023-07-08] VITALS (13 sets, daily range): BP systolic 125–167; BP diastolic 68–85; PULSE 79–94; RESP 16–30; TEMP 36.2–36.9; O2SAT 85–96
[2023-07-08] MEDS: IPRAT-ALBUT 0.5-2.5 MG/3 ML NEB 1 NEB IH ×2 (01:15→21:01)
[2023-07-08] MEDS: LORazepam 2 MG/ML inj 0.5 MG IVP (02:11)
[2023-07-08] MEDS: ALBUTEROL SULFATE 2.5 MG/3 ML VIAL.NEB NEB ×2 (05:47→15:50)
[2023-07-08 06:19] LABS: Hematocrit 35.6 % (33.0-51.0); Hemoglobin* 10.5 gm/dL (12.0-16.0); Mean Corpuscular HGB Conc 30 gm/dL (32-36); Mean Corpuscular Hemoglobin 26 pg (26-34); Mean Corpuscular Volume 87 fL (80-100); Platelet Count* 311 K/uL (140-440); Red Blood Count 4.11 m/uL (4.00-5.20)
[2023-07-08 06:36] LABS: Chloride* 108 mmol/L (96-114)
[2023-07-08 06:37] LABS: Potassium* 4.8 mmol/L (3.6-5.1); Sodium* 139 mmol/L (135-149)
--- NOTE | 2023-07-08 06:37 | PC.NURSE ---
End of shift [id number]: A&O, pleasant and cooperative. Pt hypertensive. Came to the floor on 2 L of O2. Sats remained in the mid 90s. Around 0130 pt woke up feeling like she couldn?t breathe and was inc on urine. Pt was SOB, O2 sats were in the mid 80%. LS wheezy on inspiration and expiration. Neb given. Pt placed on 4 L oxymask. Sats came back to low 90s and SOB resolved. Pt requested something for anxiety. updated, see orders. Pt back on 2L nasal canula at 0630 and tolerating well. Pt reports muscle pain on right side due to coughing. Pt using IS at bedside. SBA to bathroom. SOB and desats to low 80s high 70s w/ activity. BLE edema.
[2023-07-08 06:39] LABS: Creatinine* 0.9 mg/dL (0.5-1.5); Est. Creatinine Clearance* 48.06; Estimated Glomerular Filt Rate 72 ml/min; Slide Review Reflex No
[2023-07-08 06:40] LABS: Anion Gap 9 mEq/L (7-15); Blood Urea Nitrogen* 14 mg/dL (7-30); Calcium* 9.3 mg/dL (8.4-10.6); Carbon Dioxide* 22 mmol/L (20-32); Glucose* 142 mg/dL (60-115)
[2023-07-08] MEDS: ASPIRIN 81 MG TABLET EC PO (08:31)
[2023-07-08] MEDS: predniSONE 20 MG TABLET 40 MG PO (08:31)
[2023-07-08] MEDS: AMLODIPINE 10 MG TABLET PO (08:31)
[2023-07-08] MEDS: SERTRALINE 50 MG TABLET PO (08:31)
[2023-07-08] MEDS: SODIUM CHLORIDE 0.9 % (FLUSH) 10 ML SYRINGE 5 ML IVF ×2 (08:32→20:58)
[2023-07-08] MEDS: METOPROLOL SUCCINATE (XL) 25 MG TAB PO (08:32)
[2023-07-08] MEDS: CETIRIZINE HCL 10 MG TABLET PO (08:32)
--- NOTE | 2023-07-08 09:42 | CRLHL7_ITS ---
For Patients: As a result of the Century Cures Act, medical imaging exams and procedure reports are released immediately into your electronic medical record. You may view this report before your referring provider. If you have questions, please contact your health care provider. INDICATION: Questionable gallstone. TECHNIQUE: Ultrasound abdomen limited. Sonographic images of the right upper quadrant were obtained using muñoz-scale and color Doppler images. COMPARISON: CT abdomen/pelvis on 07/07/2023 FINDINGS: Liver: Normal in size and echotexture. No suspicious masses. Simple cyst in the right hepatic lobe measuring 2.4 centimeters in greatest dimension. No intrahepatic biliary dilatation. Portal vein is patent with blood flow toward the liver. Gallbladder: Echogenic, shadowing focus within the gallbladder measuring 2.3 x 1.8 x 2.1 centimeters, consistent with a gallstone. Gallbladder wall slightly thickened measuring 0.5 centimeters. No pericholecystic fluid. Common bile duct: 3 mm. Pancreas: Not well evaluated on this exam Right kidney: Normal in size. Normal echotexture and cortex. No suspicious masses, stones, or hydronephrosis. Vasculature: Proximal abdominal aorta and IVC are unremarkable. IMPRESSION: 1. Cholelithiasis without sonographic evidence of acute cholecystitis. 2. Simple right hepatic cyst measuring 2.4 centimeters. Dictated by Crow Mckeon MD @ 07/08/2023 12:06:34 PM (Electronically Signed)
[2023-07-08] MEDS: HYDRALAZINE 25 MG TABLET PO ×2 (09:47→20:54)
--- NOTE | 2023-07-08 12:56 | RESP.RT ---
BBS with scattered fine crackles, right lower lobe expiratory wheeze. Patient has good non=productive cough.
--- NOTE | 2023-07-08 17:55 | PC.NURSE ---
Pt alert and oriented. Pt had no complaints of pain. Pt was weaned off of oxygen. SOB with exertion. At 1545 Pt maintained saturations of 90-94% without exertion. With exertion Pt?s oxygen dropped to 78%; Pt rebounded quickly to high 80?s-low 90?s (88%-95%) with deep breathing. RT consulted; Pt to use oxygen while walking in room. Pt stated she is feeling much better as the day has progressed.?
--- NOTE | 2023-07-08 18:22 | P.IMPN_ITS ---
Progress Note: A&P Assessment and plan (1) Acute hypoxemic respiratory failure: Problem details: -in setting of chronic sarcoidosis, interstitial lung disease -awoke with oxygen saturations of 74% 07/07 -unknown trigger. Most recently ill with flare approximately 3 weeks ago -h/o PE, CT negative for PE, noted moderate emphysema. VBG pH 7.381, pCO2 39, PO2 64 (reported is hyperventilating in the ED) -respiratory therapy for pulmonary support -continue oxygen supplementation, weaning as able, to maintain saturations 88- 92% -continue home medications for sarcoidosis -home oxygen assessment prior to discharge Status: Acute (2) Sarcoidosis of lung: Problem details: -diagnosed 2015 following a skin/lump biopsy -home medications include prednisone (currently 10 mg), azathioprine, Dulera, Ventolin -followed by 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 -Continue prednisone 40 mg daily following burst dose IV Solu-Medrol in ED, will need taper at discharge Status: Acute (3) Abnormal CT scan, gallbladder: Problem details: -recommend dedicated right upper quadrant ultrasound or CT abdomen with and without contrast for further assessment -no abdominal pain complaints, nausea, vomiting - RUQ US 07/08 shows stones, no cholecystitis Status: Acute (4) Hypertension: Problem details: -continue home medications Status: Chronic (5) Sleep apnea: Problem details: -will need formal study ([facility] pulmonology has placed an order) Status: Chronic (6) Interstitial lung disease: Problem details: -sarcoidosis as above Status: Chronic (7) Anxiety: Problem details: Got Ativan for a panic attack. I have spoken with her and she is agreeable to try hydroxyzine instead. Discussed the addictive potential of Ativan. Status: Acute Subjective Time Seen by Provider: 14:29 Date Seen: 07/08/23 Interval history: Viktoria says she feels a bit better, but still has tight breathing. She says her son, Geramn, was here earlier, but already left to be with his kids and she said she would call him to give him an update. She denies any nausea, vomiting or abdominal pain. Exam Narrative: Exam Narrative: General: No acute distress. Awake, alert, oriented. No pallor. No jaundice. Oropharynx: Clear. Mucous membranes moist. Cardiovascular: Regular rate and rhythm. No murmurs, gallops, or rubs. Respiratory: Some air movement, bibasilar rales, scattered expiratory wheezes throughout. Abdomen: Bowel sounds present. Soft, nondistended, nontender. Extremities: Trace ankle edema. Const: Vital Signs, click to edit/add: Vital Signs - 24 hr 07/07/23 20:25 07/07/23 21:59 07/07/23 21:59 Temperature 98.3 F Pulse Rate Pulse Rate [Pulse Oximeter] 80 Respiratory Rate 14 14 14 Blood Pressure [Ri ght Arm] 147/72 H Pulse Oximetry 94 94 94 Oxygen Delivery Me thod Nasal Cannula Nasal Cannula Nasal Cannula Oxygen Flow Rate 2 2 2 07/07/23 22:53 07/07/23 23:00 07/07/23 23:13 Temperature 97.7 F Pulse Rate 82 Pulse Rate [Pulse Oximeter] 85 Respiratory Rate 18 Blood Pressure [Ri ght Arm] 152/75 H Pulse Oximetry 94 94 Oxygen Delivery Me thod Nasal Cannula Oxygen Flow Rate 2 07/08/23 01:30 07/08/23 01:59 07/08/23 02:13 Temperature 97.1 F L Pulse Rate Pulse Rate [Pulse Oximeter] 83 Respiratory Rate 30 H 20 18 Blood Pressure [Ri ght Arm] 154/68 H Pulse Oximetry 85 L 94 91 Oxygen Delivery Me thod OxyMask OxyMask OxyMask Oxygen Flow Rate 4 3 3.5 07/08/23 06:36 07/08/23 08:00 07/08/23 08:00 Temperature 97.5 F L Pulse Rate Pulse Rate [Pulse Oximeter] 79 Respiratory Rate 18 Blood Pressure [Ri ght Arm] 147/79 H Pulse Oximetry 95 96 96 Oxygen Delivery Me thod Nasal Cannula Nasal Cannula Oxygen Flow Rate 2 2 07/08/23 09:00 07/08/23 09:52 07/08/23 11:15 Temperature 97.9 F Pulse Rate 79 Pulse Rate [Pulse Oximeter] 94 Respiratory Rate 20 20 Blood Pressure [Ri ght Arm] 167/85 H Pulse Oximetry 90 91 Oxygen Delivery Me thod Nasal Cannula Room Air Oxygen Flow Rate 2 07/08/23 15:00 07/08/23 15:13 07/08/23 16:00 Temperature 97.9 F Pulse Rate 82 Pulse Rate [Pulse Oximeter] 79 Respiratory Rate 20 Blood Pressure [Ri ght Arm] 131/77 Pulse Oximetry 95 95 Oxygen Delivery Me thod Nasal Cannula Oxygen Flow Rate 0.5 Labs Labs: Laboratory Results - last 24 hr 07/08/23 05:32 WBC 8.00 RBC 4.11 Hgb 10.5 L Hct 35.6 MCV 87 MCH 26 MCHC 30 L Plt Count 311 Sodium 139 Potassium 4.8 Chloride 108 Carbon Dioxide 22 Anion Gap 9 BUN 14 Creatinine 0.9 Estimated Creat Clear 48.06 Estimated GFR 72 Glucose 142 H Calcium 9.3
[2023-07-08] MEDS: METOPROLOL TARTRATE 25 MG TABLET PO (20:53)
[2023-07-08] MEDS: hydrOXYzine pamoate 25 MG CAPSULE PO (20:53)
[2023-07-08] MEDS: ENOXAPARIN 40 MG/0.4 ML INJ SUBCUT (20:53)
[2023-07-08] MEDS: azaTHIOprine 50 MG TABLET 100 MG PO (20:54)
[2023-07-08] MEDS: ACETAMINOPHEN 325 MG TABLET PO (21:01)
[2023-07-09] VITALS (13 sets, daily range): BP systolic 120–150; BP diastolic 61–99; PULSE 68–81; RESP 16–20; TEMP 36–36.6; O2SAT 78–98
--- NOTE | 2023-07-09 06:37 | PC.NURSE ---
End of shift [id number]: A&O, pleasant and cooperative. Pt hypertensive. Fine crackles heard at bases. using IS at bedside. Placed on 0.5 L of oxygen while sleeping to maintain saturations >88%. Tolerating room air while awake. SBA to bathroom.?2L of oxygen placed on pt to ambulate to the bathroom. Pt is SOB w/ activity but recovers quickly.?BLE edema.
[2023-07-09 06:45] LABS: Hematocrit 32.9 % (33.0-51.0); Hemoglobin* 9.7 gm/dL (12.0-16.0); Mean Corpuscular HGB Conc 30 gm/dL (32-36); Mean Corpuscular Hemoglobin 26 pg (26-34); Mean Corpuscular Volume 86 fL (80-100); Platelet Count* 297 K/uL (140-440); Red Blood Count 3.81 m/uL (4.00-5.20); White Blood Count* 7.57 K/uL (4.50-11.00)
[2023-07-09 07:01] LABS: Slide Review Reflex No
[2023-07-09 07:18] LABS: Chloride* 108 mmol/L (96-114); Sodium* 137 mmol/L (135-149)
[2023-07-09 07:19] LABS: Potassium* 3.8 mmol/L (3.6-5.1)
[2023-07-09 07:21] LABS: Anion Gap 5 mEq/L (7-15); Carbon Dioxide* 24 mmol/L (20-32); Est. Creatinine Clearance* 50.37; Estimated Glomerular Filt Rate 64 ml/min
[2023-07-09 07:22] LABS: Blood Urea Nitrogen* 20 mg/dL (7-30); Glucose* 94 mg/dL (60-115)
[2023-07-09] MEDS: HYDRALAZINE 25 MG TABLET PO ×2 (09:04→21:08)
[2023-07-09] MEDS: CETIRIZINE HCL 10 MG TABLET PO (09:05)
[2023-07-09] MEDS: ASPIRIN 81 MG TABLET EC PO (09:05)
[2023-07-09] MEDS: AMLODIPINE 10 MG TABLET PO (09:05)
[2023-07-09] MEDS: predniSONE 20 MG TABLET 40 MG PO (09:05)
[2023-07-09] MEDS: METOPROLOL TARTRATE 25 MG TABLET PO ×2 (09:05→21:08)
[2023-07-09] MEDS: SERTRALINE 50 MG TABLET PO (09:06)
[2023-07-09] MEDS: SODIUM CHLORIDE 0.9 % (FLUSH) 10 ML SYRINGE 5 ML IVF (09:06)
[2023-07-09] MEDS: ACETAMINOPHEN 325 MG TABLET PO ×2 (09:16→21:08)
--- NOTE | 2023-07-09 13:22 | RESP.RT ---
Home O2 safety discussed with patient, IS and PEP done with patient.
--- NOTE | 2023-07-09 15:15 | P.DS_ITS ---
DS: Providers Provider Time Seen by Provider: 11:48 Date Seen: 07/09/23 Date of admission: 07/07/23 18:50 Primary care physician: Not a Local Provider Admitting Clinician: Summer Pennington MD Consults: 07/07/23 20:24 Consult to Respiratory Therapy [CONS] Routine Comment: Reason(s) for RT Consult:: Consult Attending Physician on discharge: Cinthia Galindo MD Date of Discharge: 07/09/23 DS: Diagnosis Discharge Diagnosis (1) Anxiety: Status: Acute Problem details: Got Ativan for a panic attack. Tried hydroxyzine instead last night and this worked well. (2) Abnormal CT scan, gallbladder: Status: Acute Problem details: -recommend dedicated right upper quadrant ultrasound or CT abdomen with and without contrast for further assessment -no abdominal pain complaints, nausea, vomiting - RUQ US 07/08 shows stones, no cholecystitis - remains asymptomatic (3) Hypertension: Status: Chronic Problem details: -continue home medications (4) Sleep apnea: Status: Chronic Problem details: -will need formal study ([facility] pulmonology has placed an order); Patient desires different property consultant. Discussed options. She would like to try [facility], Dr. Christiansen. 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 -Continue prednisone 40 mg daily, taper at discharge (6) Acute hypoxemic respiratory failure: Status: Acute Problem details: -in setting of chronic sarcoidosis, interstitial lung disease -awoke with oxygen saturations of 74% 07/07 -unknown trigger. Most recently ill with flare approximately 3 weeks ago -h/o PE, CT negative for PE, noted moderate emphysema. VBG pH 7.381, pCO2 39, PO2 64 (reported is hyperventilating in the ED) -respiratory therapy for pulmonary support -continue oxygen supplementation, weaning as able, to maintain saturations 88- 92% -continue home medications for sarcoidosis -home oxygen assessment complete. (7) Interstitial lung disease: Status: Chronic Problem details: -sarcoidosis as above DS: Summary Hospital Course Hospital Course: This is a 63-year-old female with history of sarcoidosis, brain aneurysm, and PE presented through the ER for shortness of breath. She is chronically on prednisone, currently 10 mg a day following a taper after a flare on 06/19/2023, but had worsening shortness of breaths pain on the right side of her chest that was reproducible with a deep cough and palpation. She was required oxygen supplementation to maintain oxygen saturations of 88-92%. She was started on an increased dose of prednisone for sarcoidosis flare. She had improvement over the next 2 days and is discharged home today in improving condition. She does need home oxygen, which I have ordered for her. Please see above for more detailed information. Time Spent with Patient Time attestation: Total time spent providing and/or coordinating discharge services: Exam Narrative: Exam Narrative: General: No acute distress. Awake, alert, oriented. No pallor. No jaundice. Oropharynx: Clear. Mucous membranes moist. Cardiovascular: Regular rate and rhythm. No murmurs, gallops, or rubs. Respiratory: More air movement today, bibasilar rales, no wheezes or crackles. Abdomen: Bowel sounds present. Soft, nondistended, nontender. Extremities: Trace ankle edema. Const: Vital Signs, click to edit/add: Vital Signs - 24 hr 07/08/23 16:00 07/08/23 19:32 07/08/23 23:00 Temperature 98.4 F 97.6 F Pulse Rate [Pulse Oximeter] 82 82 Respiratory Rate 18 16 Blood Pressure [Ri ght Arm] 130/73 125/82 Pulse Oximetry 95 91 90 Oxygen Delivery Me thod Room Air Nasal Cannula Oxygen Flow Rate 1 07/09/23 00:00 07/09/23 03:00 07/09/23 06:34 Temperature 97.0 F L Pulse Rate [Pulse Oximeter] 68 Respiratory Rate 16 Blood Pressure [Ri ght Arm] 150/77 H Pulse Oximetry 90 91 93 Oxygen Delivery Me thod Nasal Cannula Room Air Oxygen Flow Rate 0.5 07/09/23 07:35 07/09/23 08:00 07/09/23 11:35 Temperature 97.3 F L 97.6 F Pulse Rate [Pulse Oximeter] 70 80 Respiratory Rate 18 20 Blood Pressure [Ri ght Arm] 131/99 H 132/72 Pulse Oximetry 90 90 98 Oxygen Delivery Me thod Nasal Cannula Nasal Cannula Oxygen Flow Rate 0.5 2 DS: Data Data Completed and Pending Completed studies during hospitalization: Ordering Physician: Arthur Loco M.D. Date of Service: 07/07/23 Procedure(s): CT angio chest PE protocol Accession Number(s): [id number] cc: Provider,Not a Local; Arthur Loco M.D.~ For Patients: As a result of the Cures Act, medical imaging exams and procedure reports are released immediately into your electronic medical record. You may view this report before your referring provider. If you have questions, please contact your health care provider. INDICATION: Shortness of breath TECHNIQUE: CT chest PE was acquired with 95 cc Isovue 370 IV contrast. COMPARISON: None. FINDINGS: Heart and vasculature: Examination is limited secondary to contrast bolus timing; however, there are no appreciable pulmonary emboli. The heart is normal in size. No pericardial effusion. Coronary artery calcifications. Lungs and pleura: Moderate centrilobular and paraseptal emphysematous changes bilaterally. Linear opacities involving the posterior aspect of the right upper lobe favored to represent atelectasis/scarring. Trace bibasilar atelectasis. No suspicious pulmonary nodules or masses. Lymph nodes/mediastinum: No mediastinal, hilar, or axillary adenopathy. Chest wall: No masses. Upper abdomen: No acute process. Well-circumscribed low-density lesion in the right hepatic lobe, incompletely evaluated on this examination may represent a cyst/hemangioma. Questionable gallbladder enhancing lesion versus gallstones. Bones: Unremarkable for age. IMPRESSION: 1. No pulmonary embolism. 2. Moderate emphysema. 3. Questionable enhancing gallbladder wall lesion versus gallstones. Recommend correlation with prior imaging if available; otherwise, recommend dedicated right upper quadrant ultrasound or CT abdomen with and without contrast for further assessment. Please note that all CT scans at this facility use dose modulation, iterative reconstruction, and/or weight-based dosing when appropriate to reduce radiation dose to as low as reasonably achievable. Dictated by Crow Mckeon MD @ 07/07/2023 4:59:13 PM (Electronically Signed) Ordering Physician: Cinthia Galindo M.D. Date of Service: 07/08/23 Procedure(s): US abdomen limited Accession Number(s): [id number] cc: Cinthia Galindo M.D.; Provider,Not a Local~ For Patients: As a result of the Century Cures Act, medical imaging exams and procedure reports are released immediately into your electronic medical record. You may view this report before your referring provider. If you have questions, please contact your health care provider. INDICATION: Questionable gallstone. TECHNIQUE: Ultrasound abdomen limited. Sonographic images of the right upper quadrant were obtained using muñoz-scale and color Doppler images. COMPARISON: CT abdomen/pelvis on 07/07/2023 FINDINGS: Liver: Normal in size and echotexture. No suspicious masses. Simple cyst in the right hepatic lobe measuring 2.4 centimeters in greatest dimension. No intrahepatic biliary dilatation. Portal vein is patent with blood flow toward the liver. Gallbladder: Echogenic, shadowing focus within the gallbladder measuring 2.3 x 1.8 x 2.1 centimeters, consistent with a gallstone. Gallbladder wall slightly thickened measuring 0.5 centimeters. No pericholecystic fluid. Common bile duct: 3 mm. Pancreas: Not well evaluated on this exam Right kidney: Normal in size. Normal echotexture and cortex. No suspicious masses, stones, or hydronephrosis. Vasculature: Proximal abdominal aorta and IVC are unremarkable. IMPRESSION: 1. Cholelithiasis without sonographic evidence of acute cholecystitis. 2. Simple right hepatic cyst measuring 2.4 centimeters. Dictated by Crow Mckeon MD @ 07/08/2023 12:06:34 PM (Electronically Signed) Labs on day of discharge: Labs from last 24 hours 07/09/23 06:17 WBC 7.57 RBC 3.81 L Hgb 9.7 L Hct 32.9 L MCV 86 MCH 26 MCHC 30 L Plt Count 297 Sodium 137 Potassium 3.8 Chloride 108 Carbon Dioxide 24 Anion Gap 5 L BUN 20 Creatinine 1.0 Estimated Creat Clear 50.37 Estimated GFR 64 Glucose 94 Calcium 9.0 Discharge Plan Discharge Disposition: Home, Self-Care Date of Admission: 07/07/23 18:50 Attending Provider on Discharge: Cinthia Galindo Primary Care Provider: Provider,Not a Local Condition: Improved Anticipated Discharge Date/Time: 07/09/23 15:21 Discharge Medications: New prednisone 20 mg Tablet 40 mg PO DAILYWM Qty: 15 0RF Rx Instructions: Take 2 tabs daily for 4 days, then 1 tab daily for 7 days, then resume 10mg daily (your previous prednisone prescription) hydroxyzine pamoate 25 mg Capsule 25 mg PO Q4H PRN (Reason: Anxiety) Qty: 60 0RF Continued hydralazine 25 mg tablet 25 mg PO BID amlodipine 10 mg tablet 10 mg PO DAILY azathioprine 100 mg tablet 100 mg PO HS aspirin [Adult Aspirin Regimen] 81 mg tablet,delayed release (DR/EC) 81 mg PO DAILY ipratropium-albuterol 0.5 mg-3 mg(2.5 mg base)/3 mL solution for nebulization 3 ml inhalation Q6H cetirizine [All Day Allergy (cetirizine)] 10 mg tablet 10 mg PO DAILY sertraline 50 mg tablet 50 mg PO DAILY ondansetron 4 mg tablet,disintegrating 4 mg PO Q8H PRN furosemide 40 mg tablet 40 mg PO DAILY PRN magnesium gluconate 30 mg (550 mg) tablet 30 mg PO BID metoprolol tartrate 25 mg tablet 25 mg PO BID albuterol sulfate 90 mcg/actuation HFA aerosol inhaler 2 inh inhalation Q6H PRN Held prednisone 10 mg tablet 10 mg PO DAILY Hold Instructions: Resume on 07/21/23. Discharge Orders: Discharge Order (Routine); Ordered 07/09/23 Ordered By: Cinthia Galindo Patient Education: Sarcoidosis (DC) Additional Instructions: Establish with a property consultant. You will need a sleep study for possible sleep apnea; your PCP or property consultant can help you set this up. Oxygen via NC 2LPM at rest, 4LPM with activity Complete your predisone taper. Activity Level: No Restrictions Discharge Diet: Regular Follow Up Appointments: Provider,Not a Local [Primary Care Provider] - ([facility], 5-7 days) Forms: [employer] Info Instructions
[2023-07-09] MEDS: ALBUTEROL SULFATE 2.5 MG/3 ML VIAL.NEB NEB (17:08)
--- NOTE | 2023-07-09 18:56 | PC.NURSE ---
Pt alert and oriented. Pt had complaints of muscle pain 0-9; see EMAR for intervention. Per RT Pt to be on oxygen 2 Liters at rest and 4 Liters with exertion. Pt?s IV removed catheter intact. Pt to discharge home with home oxygen. Home oxygen not delivered Pt to stay night in hospital. Hospital okay?d Pt to not need another IV placed.
[2023-07-09] MEDS: azaTHIOprine 50 MG TABLET 100 MG PO (21:07)
[2023-07-09] MEDS: ENOXAPARIN 40 MG/0.4 ML INJ SUBCUT (21:07)
[2023-07-09] MEDS: hydrOXYzine pamoate 25 MG CAPSULE PO (21:08)
[2023-07-10 03:26] VITALS: BP 128/65; PULSE 66; RESP 16; TEMP 36.2; O2SAT 96
--- NOTE | 2023-07-10 06:40 | PC.NURSE ---
End of shift [id number]: A&O, pleasant and cooperative. VSS. Placed on 4 L of oxygen w/ activity. Pt otherwise maintaining sats on 2L of O2. ?using IS at bedside. SBA to bathroom. Pt is SOB w/ activity but recovers quickly. BLE edema.?Slept in recliner through the night.
[2023-07-10 06:45] LABS: Hematocrit 34.7 % (33.0-51.0); Mean Corpuscular HGB Conc 29 gm/dL (32-36); Mean Corpuscular Hemoglobin 25 pg (26-34); Mean Corpuscular Volume 88 fL (80-100); Platelet Count* 269 K/uL (140-440); Red Blood Count 3.95 m/uL (4.00-5.20); White Blood Count* 6.32 K/uL (4.50-11.00)
[2023-07-10 06:47] LABS: Slide Review Reflex No
[2023-07-10 06:59] LABS: Chloride* 108 mmol/L (96-114); Sodium* 140 mmol/L (135-149)
[2023-07-10 07:00] VITALS: BP 147/74; PULSE 75; RESP 18; TEMP 36.6; O2SAT 96
[2023-07-10 07:00] LABS: Potassium* 3.9 mmol/L (3.6-5.1)
[2023-07-10 07:02] LABS: Creatinine* 1.1 mg/dL (0.5-1.5); Est. Creatinine Clearance* 45.79; Estimated Glomerular Filt Rate 57 ml/min
[2023-07-10 07:03] LABS: Anion Gap 7 mEq/L (7-15); Blood Urea Nitrogen* 25 mg/dL (7-30); Calcium* 8.7 mg/dL (8.4-10.6); Carbon Dioxide* 25 mmol/L (20-32); Glucose* 82 mg/dL (60-115)
[2023-07-10] MEDS: SERTRALINE 50 MG TABLET PO (08:47)
[2023-07-10] MEDS: METOPROLOL TARTRATE 25 MG TABLET PO (08:47)
[2023-07-10] MEDS: predniSONE 20 MG TABLET 40 MG PO (08:47)
[2023-07-10] MEDS: HYDRALAZINE 25 MG TABLET PO (08:47)
[2023-07-10] MEDS: CETIRIZINE HCL 10 MG TABLET PO (08:47)
[2023-07-10] MEDS: ASPIRIN 81 MG TABLET EC PO (08:48)
[2023-07-10] MEDS: AMLODIPINE 10 MG TABLET PO (08:48)
--- NOTE | 2023-07-10 09:23 | P.IMPN_ITS ---
Progress Note: A&P Assessment and plan (1) Acute hypoxemic respiratory failure: Problem details: -in setting of chronic sarcoidosis, interstitial lung disease -awoke with oxygen saturations of 74% 07/07 -unknown trigger. Most recently ill with flare approximately 3 weeks ago -h/o PE, CT negative for PE, noted moderate emphysema. VBG pH 7.381, pCO2 39, PO2 64 (reported is hyperventilating in the ED) -respiratory therapy for pulmonary support -continue oxygen supplementation, weaning as able, to maintain saturations 88- 92% -continue home medications for sarcoidosis -home oxygen assessment complete. Awaiting home oxygen delivery Status: Acute (2) Sarcoidosis of lung: Problem details: -diagnosed 2015 following a skin/lump biopsy -home medications include prednisone (currently 10 mg), azathioprine, Dulera, Ventolin -followed by [facility] Pulmonology (last office visit December 2022) but looking for a new drywall stripper - Some improvement from yesterday. -Continue prednisone taper at discharge Status: Acute (3) Abnormal CT scan, gallbladder: Problem details: -recommend dedicated right upper quadrant ultrasound or CT abdomen with and without contrast for further assessment -no abdominal pain complaints, nausea, vomiting - RUQ US 07/08 shows stones, no cholecystitis - remains asymptomatic Status: Acute (4) Hypertension: Problem details: -continue home medications Status: Chronic (5) Sleep apnea: Problem details: -will need formal study ([facility] pulmonology has placed an order); Patient desires different drywall stripper. Discussed options. She would like to try [facility] Dr. Kuldip Han. Status: Chronic (6) Interstitial lung disease: Problem details: -sarcoidosis as above Status: Chronic (7) Anxiety: Problem details: Got Ativan for a panic attack. Tried hydroxyzine instead and this worked well. Status: Acute Plan Anticipating discharge home today with home oxygen as soon as that becomes available. Subjective Time Seen by Provider: 07:30 Date Seen: 07/10/23 Interval history: Viktoria continues to feel better every day. She is still ready to go home, but did not get any oxygen delivered to her yesterday so she could not leave the hospital. We have been in contact with [facility] to try to resolve this situation to get the patient home oxygen prior to homegoing. Since she did not have home oxygen available yesterday, the discharge had to be canceled since it would bend unsafe for her to go home without oxygen. Exam Narrative: Exam Narrative: General: No acute distress. Awake, alert, oriented. No pallor. No jaundice. Oropharynx: Clear. Mucous membranes moist. Cardiovascular: Regular rate and rhythm. No murmurs, gallops, or rubs. Respiratory: Continues to have diminished air movement, but it is better than on the 9th when I 1st saw her, no wheezes or crackles. Const: Vital Signs, click to edit/add: Vital Signs - 24 hr 07/09/23 11:35 07/09/23 15:00 07/09/23 16:00 Temperature 97.6 F 97.9 F Pulse Rate [Pulse Oximeter] 80 78 Respiratory Rate 20 18 Blood Pressure [Ri ght Arm] 132/72 133/65 Pulse Oximetry 98 97 97 Oxygen Delivery Me thod Nasal Cannula Nasal Cannula Oxygen Flow Rate 2 2 07/09/23 19:43 07/09/23 23:00 07/09/23 23:15 Temperature 97.3 F L 96.8 F L Pulse Rate [Pulse Oximeter] 81 69 Respiratory Rate 18 18 18 Blood Pressure [Ri ght Arm] 134/67 120/61 Pulse Oximetry 96 95 Oxygen Delivery Me thod Nasal Cannula Nasal Cannula Oxygen Flow Rate 2 2 07/09/23 23:16 07/10/23 03:26 07/10/23 07:00 Temperature 97.2 F L Pulse Rate [Pulse Oximeter] 66 Respiratory Rate 16 Blood Pressure [Ri ght Arm] 128/65 Pulse Oximetry 95 96 96 Oxygen Delivery Me thod Nasal Cannula Oxygen Flow Rate 2 07/10/23 07:00 07/10/23 07:00 Temperature 97.9 F Pulse Rate [Pulse Oximeter] 75 75 Respiratory Rate 18 18 Blood Pressure [Ri ght Arm] 147/74 H Pulse Oximetry 96 Oxygen Delivery Me thod Nasal Cannula Oxygen Flow Rate 2 Labs Labs: Laboratory Results - last 24 hr 07/10/23 06:35 WBC 6.32 RBC 3.95 L Hgb 10.0 L Hct 34.7 MCV 88 MCH 25 L MCHC 29 L Plt Count 269 Sodium 140 Potassium 3.9 Chloride 108 Carbon Dioxide 25 Anion Gap 7 BUN 25 Creatinine 1.1 Estimated Creat Clear 45.79 Estimated GFR 57 Glucose 82 Calcium 8.7
--- NOTE | 2023-07-10 12:10 | PC.NURSE ---
Discharge: alert and oriented x4. 4 L NC when ambulating and 2 L NC at rest. patient discharged home with granddaughter today at 1150. Home O2 sent setup and sent w/patient. discharge instructions given and signed and patient verbalized understanding. No IV present.
== END 2023-07-10 11:50 | disposition home or self-care (01) ==
LOC: ED 18:14 → MEDSURG 18:51
PROVIDERS: Admitting Provider Family Medicine; Emergency Provider Family Medicine; Visit Provider Physician Assistant
DX: J96.01 Acute respiratory failure with hypoxia (principal); D86.0 Sarcoidosis of lung; J84.9 Interstitial pulmonary disease, unspecified; J43.9 Emphysema, unspecified; R93.2 Abnormal findings on diagnostic imaging of liver and biliary tract; K80.20 Calculus of gallbladder without cholecystitis without obstruction; D64.9 Anemia, unspecified; R07.89 Other chest pain; R05.9 Cough, unspecified; R00.2 Palpitations; G47.30 Sleep apnea, unspecified; F12.90 Cannabis use, unspecified, uncomplicated; I10 Essential (primary) hypertension; F41.9 Anxiety disorder, unspecified; R60.0 Localized edema; Z99.81 Dependence on supplemental oxygen; Z79.82 Long term (current) use of aspirin; E65 Localized adiposity; Z88.0 Allergy status to penicillin; Z88.1 Allergy status to other antibiotic agents; Z92.29 Personal history of other drug therapy; Z86.711 Personal history of pulmonary embolism; Z87.891 Personal history of nicotine dependence; Z11.52 Encounter for screening for COVID-19; Z87.2 Personal history of diseases of the skin and subcutaneous tissue; Z87.898 Personal history of other specified conditions; Z66 Do not resuscitate
CPT/HCPCS: 36415; 71275; 76705; 80048; 82803; 83735; 83880; 85025; 85027; 87631; 93005; 94640; 94761; 96372; 96374; 96375; 99285; G0378; A9270; J1650; J2060; J2930; J7500; J7512; Q9967

== ENCOUNTER 2025-06-30 17:51 | Inpatient (IN) | payer OTHER, SELFPAY ==
--- OUTSIDE RECORDS SUMMARY | 2025-06-19 13:00 | XMS_ITS | Encounter Summary ---
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 Pulmonary sarcoidosis Sarcoidosis Anxiety disorder, unspecified type Psoriasis Other psoriasis Edema, unspecified type Sarcoidosis documented in this encounter Additional Health Concerns Assessment Noted Time PHQ-9 Depression Total Score: 2 06/19/20 25 9:45 AM PRODUCTION SUPV documented as of this encounter Care Teams Coper Hand Relationship Specialty Start Date End Date Brigitte Harmon APRN IT HELP DESK MANAGER [address] [facility] [address] [place] [address] PCP - General 12/01/23 Rivka Henning PharmD Pharmacist Pharmacist 05/08/19 Kemal Santana MD [address] [place] [address] Endocrinology, Diabetes, and Metabolism 03/24/22 Deepika Lundy MD [address] [facility] [address] Assigned Pulmonology Provider 12/21/23 Deepika Lundy MD [address] [facility] [place] [address] Critical Care 10/09/24 Consuelo Benson APRN IT HELP DESK MANAGER [address] [place] [address] Assigned PCP 01/20/25 06/21/25 documented as of this encounter
[2025-06-30] VITALS (17 sets, daily range): BP systolic 115–135; BP diastolic 59–103; PULSE 72–87; RESP 13–32; TEMP 36.7–37.3; O2SAT 73–97; BMI 51.7
--- OUTSIDE RECORDS SUMMARY | 2025-06-30 17:53 | XMS_ITS | Encounter Summary ---
Author Organization [facility] Address [address] [place] [address] Care Team Providers Care Manager Category Name Role Phone Rivka Henning PharmD Unavailable [phone] Brigitte Harmon APRN INTERRELATED SPECIAL EDUCATION TEACHER Unavailable [phone] Kemal Santana MD Unavailable [phone] Jose Cruz Tejada MD Unavailable Regina Remy MD Primary Care Provider [phone] Brigitte Harmon APRN INTERRELATED SPECIAL EDUCATION TEACHER Primary Care Provider [phone] Deepika Lundy MD Unavailable Consuelo Benson APRN INTERRELATED SPECIAL EDUCATION TEACHER Unavailable [phone] Regina Remy MD Unavailable [phone] Deepika Lundy MD Unavailable Consuelo Benson APRN INTERRELATED SPECIAL EDUCATION TEACHER Unavailable [phone] Brigitte Harmon APRN INTERRELATED SPECIAL EDUCATION TEACHER Unavailable [phone] Reason for Visit * Reason Onset Date Comments Refill Request 09/14/2023 Encounter Details Date Type Department Care Team (Late st Contact Info) Description 09/14/2023 [facility] [address] [address] Jose Cruz Tejada MD [address] [place] [address] Refill Request Social History Tobacco Use Types Packs/Day Years Used Date Smoking Tobacco: Former Cigarettes 1 30 0 08/31/1979 - 08/31/2009 Smokeless Tobacco: Never Alcohol Use Standard Drinks/Week Comments No 0 (1 standard drink = 0.6 oz pur e alcohol) PHQ-2 Answer Date Recorded PHQ-2 Score 1 07/13/2023 Adolescent Education Answer Date Record ed Getting School Help Needed Not on file 04/21 Food Insecurity Answer Date Recorded Within the past 12 months, d id you worry that your food would run out before you got money to buy more? No 07/12/2023 Within the past 12 months, d id the food you bought just not last and you didn t have money to get more? No 07/12/2023 Housing Stability Answer Date Recorded Do you have housing? (Housin g is defined as stable permanent housing and does not include staying outside in a car, in a tent, in an abandoned building, in an overnight mcc, or couch-surfing.) Yes 07/12/2023 Are you worried about losing your housing? No 07/12/2023 Financial Resource Strain Answer Date R ecorded Within the past 12 months, h ave you or your family members you live with been unable to get utilities (heat, electricity) when it was really needed? No 07/12/2023 Transportation Needs Answer Date Record ed Within the past 12 months, h as lack of transportation kept you from medical appointments, getting your medicines, non-medical meetings or appointments, work, or from getting things that you need? No 07/12/2023 Comments No Sex and Gender Information Value Date Recorded Sex Assigned at Not on file Legal Sex Female 11:54 AM CDT Gender Identity Not on file Sexual Orientation Not on file documented as of this encounter Plan of Treatment Upcoming Encounters Date Type Department Care Team (Late st Contact Info) Description 07/16/2025 2:30 PM ANIMAL TECH Virtual Visit [facility] [address] [place] [address] [place] [address] [place] [address] [address] [place] [address] documented as of this encounter Visit Diagnoses Diagnosis ILD (interstitial lung disease) (H) Postinflammatory pulmonary fibrosis Simple chronic bronchitis (H) Simple chronic bronchitis Sarcoidosis Moderate persistent asthma, unspecified whether complicated Dyspnea on exertion Other dyspnea and respiratory abnormality documented in this encounter Additional Health Concerns Assessment Noted Time PHQ-9 Depression Total Score: 6 07/12/20 23 3:44 PM ANIMAL TECH documented as of this encounter Care Teams Manager Category Relationship Specialty Start Date End Date Regina Remy MD [address] [place] [address] PCP - General Student in organized health care education/training program 07/20/23 11/30/23 Brigitte Harmon APRN INTERRELATED SPECIAL EDUCATION TEACHER [address] [place] [id number] PCP - General 12/01/23 Rivka Henning, DeloresD Pharmacist Pharmacist 05/08/19 Brigitte Harmon APRN INTERRELATED SPECIAL EDUCATION TEACHER [address] [place], [place] [id number] Assigned PCP 01/13/21 12/20/23 Kemal Santana MD [address] [place], [place] [id number] Endocrinology, Diabetes, and Metabolism 03/24/22 Jose Cruz Tejada MD [address] [place], [place] [address] Assigned Pulmonology Provider 04/01/23 12/20/23 Deepika Lundy MD [address] [place] [address] Assigned Pulmonology Provider 12/21/23 Consuelo Benson APRN INTERRELATED SPECIAL EDUCATION TEACHER [address] [place] [address] Assigned PCP 12/21/23 03/21/24 Regina Remy MD [address] [place] [address] Assigned PCP 03/22/24 01/19/25 Deepika Lundy MD [address] [place] [address] Critical Care 10/09/24 Consuelo Benson APRN INTERRELATED SPECIAL EDUCATION TEACHER [address] [place] [address] Assigned PCP 01/20/25 06/21/25 Brigitte Harmon APRN INTERRELATED SPECIAL EDUCATION TEACHER [address] [place] [address] Assigned PCP 06/22/25 documented as of this encounter
--- OUTSIDE RECORDS SUMMARY | 2025-06-30 17:53 | XMS_ITS | Encounter Summary ---
Author Organization [facility] Address [address] [place] [address] Care Team Providers Care Screen Door Maker Name Role Phone Brigitte Harmon APRN, CNP Primary Care Provider [phone] Rivka Henning PharmD Unavailable [phone] Brigitte Harmon APRN SPORTS MEDIA Unavailable [phone] Kemal Santana MD Unavailable [phone] Jose Cruz Tejada MD Unavailable Regina Remy MD Primary Care Provider [phone] Brigitte Harmon APRN SPORTS MEDIA Primary Care Provider [phone] Deepika Lundy MD Unavailable Consuelo Benson APRN SPORTS MEDIA Unavailable [phone] Regina Remy MD Unavailable [phone] Deepika Lundy MD Unavailable Consuelo Benson APRN SPORTS MEDIA Unavailable [phone] Brigitte Harmon APRN SPORTS MEDIA Unavailable [phone] Encounter Details Date Type Department Care Team (Late st Contact Info) Description 05/24/2023 [facility] [address] [address] Jose Cruz Tejada MD [address] [place] [address] Social History Tobacco Use Types Packs/Day Years Used Date Smoking Tobacco: Former Cigarettes 1 30 0 08/31/1979 - 08/31/2009 Smokeless Tobacco: Never Alcohol Use Standard Drinks/Week Comments No 0 (1 standard drink = 0.6 oz pur e alcohol) PHQ-2 Answer Date Recorded PHQ-2 Score 1 07/01/2022 Adolescent Education Answer Date Record ed Getting School Help Needed Not on file 04/21 Comments No Sex and Gender Information Value Date Recorded Sex Assigned at Not on file Legal Sex Female 11:54 AM CDT Gender Identity Not on file Sexual Orientation Not on file documented as of this encounter Plan of Treatment Upcoming Encounters Date Type Department Care Team (Late st Contact Info) Description 07/16/2025 2:30 PM INBOUND TELEMARKETER Virtual Visit [facility] [address] [place] [address] [address] [place] [address] Deepika Lundy MD [address] [facility] [address] [place] [address] documented as of this encounter Visit Diagnoses Not on filedocumented in this encounter Additional Health Concerns Assessment Noted Time PHQ-9 Depression Total Score: 7 05/27/20 22 10:47 AM CDT documented as of this encounter Care Teams Screen Door Maker Relationship Specialty Start Date End Date Brigitte Harmon APRN SPORTS MEDIA [address] [place] [address] [place]ERTO [place] [id number] PCP - General 09/25/17 07/19/23 Regina Remy MD [address] [place], [place] [address] PCP - General Student in organized health care education/training program 07/20/23 11/30/23 Brigitte Harmon APRN SPORTS MEDIA [address] [facility] [address] [place] [address] PCP - General 12/01/23 Rivka Henning, PharmD [address] [place] [address] [place] [address] Pharmacist Pharmacist 05/08/19 Brigitte Harmon APRN SPORTS MEDIA [address] [place] [address] Assigned PCP 01/13/21 12/20/23 Kemal Santana MD [address] [place], [place] [phone] Endocrinology, Diabetes, and Metabolism 03/24/22 Jose Cruz Tejada MD [address] [place] [address] Assigned Pulmonology Provider 04/01/23 12/20/23 Deepika Lundy MD [address] [place] [address] Assigned Pulmonology Provider 12/21/23 Consuelo Benson APRN SPORTS MEDIA [address] [facility] 100 [place] [address] Assigned PCP 12/21/23 03/21/24 Regina Remy MD [address] [place], [place] [address] Assigned PCP 03/22/24 01/19/25 Deepika Lundy MD [address] [place] [address] Critical Care 10/09/24 Consuelo Benson APRN SPORTS MEDIA [address] [facility] 100 [place], [place] [phone] Assigned PCP 01/20/25 06/21/25 Brigitte Harmon APRN SPORTS MEDIA [address] [facility] 100 [place], [place] [phone] Assigned PCP 06/22/25 documented as of this encounter
--- OUTSIDE RECORDS SUMMARY | 2025-06-30 17:53 | XMS_ITS | Encounter Summary ---
Author Organization [facility] Address [address] [place] [address] Care Team Providers Care Pre Sales Network Engineer Name Role Phone Brigitte Harmon APRN, CNP Primary Care Provider [phone] Rivka Henning PharmD Unavailable [phone] Deepika Lundy MD Unavailable Brigitte Harmon APRN, CNP Unavailable +[phone] Catalina Bain PA-C Unavailable Unavailable Kemal Santana MD Unavailable [phone] Jose Cruz Tejada MD Unavailable Deepika Lundy MD Unavailable Jose Cruz Tejada MD Unavailable Regina Remy MD Primary Care Provider [phone] Brigitte Harmon APRN, CNP Primary Care Provider [phone] Deepika Lundy MD Unavailable Consuelo Benson APRN, CNP Unavailable [phone] Regina Remy MD Unavailable [phone] Deepika Lundy MD Unavailable Consuelo Benson APRN, CNP Unavailable [phone] Brigitte Harmon APRN, CNP Unavailable [phone] Reason for Visit * Reason Comments Medication Refill Encounter Details Date Type Department Care Team (Late st Contact Info) Description 03/22/2021 Refill [facility] [address] [place] [address] Brigitte Harmon APRN SWITCHBOARD MECHANIC [address] [place] [address] Medication Refill Social History Tobacco Use Types Packs/Day Years Used Date Smoking Tobacco: Former Cigarettes 1 30 0 08/31/1979 - 08/31/2009 Smokeless Tobacco: Never Alcohol Use Standard Drinks/Week Comments No 0 (1 standard drink = 0.6 oz pur e alcohol) PHQ-2 Answer Date Recorded PHQ-2 Score 0 04/13/2020 Comments No Sex and Gender Information Value Date Recorded Sex Assigned at Not on file Legal Sex Female 11:54 AM CDT Gender Identity Not on file Sexual Orientation Not on file COVID-19 Exposure Response Date Recorded In the last month, have you been in contact with someone who was confirmed or suspected to have Coronavirus / COVID-19? No / Unsure 03/18/2021 5:07 PM CDT documented as of this encounter Plan of Treatment Upcoming Encounters Date Type Department Care Team (Late Contact Info) Description 07/16/2025 2:30 PM SHOE STITCHER Virtual Visit [address] [place] [address] Deepika Lundy MD [address] [place] [address] [address] [place] [address] documented as of this encounter Visit Diagnoses Diagnosis Essential hypertension, benign documented in this encounter Additional Health Concerns Assessment Noted Time PHQ-9 Depression Total Score: 4 12/25/19 21 12:59 AM CDT documented as of this encounter Care Teams Pre Sales Network Engineer Relationship Specialty Start Date End Date Brigitte Harmon, ALEJANDRA SWITCHBOARD MECHANIC [address] [place] [address] PCP - General 09/25/17 07/19/23 Regina Remy MD [address] [place] [address] PCP - General Student in organized health care education/training program 07/20/23 11/30/23 Brigitte Harmon, TRAFFIC OPERATOR SWITCHBOARD MECHANIC [address] [place], [place] [phone] PCP - General 12/01/23 Rivka Henning, PharmD [address] [facility] [place] [address] Pharmacist Pharmacist 05/08/19 Deepika Lundy MD [address] [facility] [address] [place], [place] [phone] Assigned Pulmonology Provider 02/12/21 11/25/22 Brigitte Harmon APRN SWITCHBOARD MECHANIC [address] [place], [place] [address] Assigned PCP 01/13/21 12/20/23 Catalina Bain PA-C XXX [place] /INACT[place] SINCE JUL 2011 XXX Assigned Surgical Provider 02/12/21 09/23/22 Kemal Santana MD [address] [place] [address] Endocrinology, Diabetes, and Metabolism 03/24/22 Jose Cruz Tejada MD [address] [place] [address] Assigned Pulmonology Provider 11/26/22 12/02/22 Deepika Lundy MD [address] [facility] [address] [place] [address] Assigned Pulmonology Provider 12/03/22 03/31/23 Jose Cruz Tejada MD [address] [place] [address] Assigned Pulmonology Provider 04/01/23 12/20/23 Deepika Lundy MD [address] [place] [address] Assigned Pulmonology Provider 12/21/23 Consuelo Benson APRN SWITCHBOARD MECHANIC [address] [place], [place] [phone] Assigned PCP 12/21/23 03/21/24 Regina Remy MD [address] [place] [address] Assigned PCP 03/22/24 01/19/25 Deepika Lundy MD [address] [place] [address] Critical Care 10/09/24 Consuelo Benson APRN SWITCHBOARD MECHANIC [address] [place], [place] [phone] Assigned PCP 01/20/25 06/21/25 Brigitte Harmon APRN SWITCHBOARD MECHANIC [address] [place], [place] [phone] Assigned PCP 06/22/25 documented as of this encounter
--- OUTSIDE RECORDS SUMMARY | 2025-06-30 17:53 | XMS_ITS | Encounter Summary ---
Author Organization [facility] Address [address] [place] [address] Care Team Providers Care Insight Leader Name Role Phone Rivka Henning PharmD Unavailable [phone] Brigitte Harmon APRN CLEANER HOUSEKEEPING Unavailable [phone] Kemal Santana MD Unavailable [phone] Jose Cruz Tejada MD Unavailable Regina Remy MD Primary Care Provider Brigitte Harmon APRN CLEANER HOUSEKEEPING Primary Care Provider [phone] Deepika Lundy MD Unavailable Consuelo Benson APRN CLEANER HOUSEKEEPING Unavailable [phone] Regina Remy MD Unavailable [phone] Deepika Lundy MD Unavailable Consuelo Benson APRN CLEANER HOUSEKEEPING Unavailable [phone] Brigitte Harmon APRN CLEANER HOUSEKEEPING Unavailable [phone] Encounter Details Date Type Department Care Team (Late st Contact Info) Description 10/09/2023 [facility] [address] [facility] [address] [place] [address] Deepika Lundy MD [address] [facility] [address] [place] [address] Social History Tobacco Use Types Packs/Day Years [...] in an abandoned building, in an overnight senior living, or couch-surfing.) Yes 07/12/2023 Are you worried [...] on file documented as of this encounter Miscellaneous Notes * Telephone Encounter - Champ Rondon - 10/09/2023 12:02 PM CDT Left message for patient to call back at [phone] to schedule an appt with Dr. Lundy. Please see notes below. documented in this encounter Plan of Treatment Upcoming Encounters Date Type Department Care Team (Late st Contact Info) Description 07/16/2025 2:30 PM CITIZEN PARTICIPATION SPECIALIST Virtual Visit [facility] [address] [place] [address] Deepika Lundy MD [address] [place] [address] documented as of this encounter Visit Diagnoses Not on filedocumented in this encounter Additional Health Concerns Assessment Noted Time PHQ-9 Depression Total Score: 6 07/12/20 23 3:44 PM CITIZEN PARTICIPATION SPECIALIST documented as of this encounter Care Teams Insight Leader Relationship Specialty Start Date End Date Regina Remy MD [address] [place] [address] PCP - General Student in organized health care education/training program 07/20/23 11/30/23 Brigitte Harmon APRN CLEANER HOUSEKEEPING [address] [facility] 100 [place], [place] [phone] PCP - General 12/01/23 Rivka Henning, DeloresD Pharmacist Pharmacist 05/08/19 Brigitte Harmon APRN CLEANER HOUSEKEEPING [address] [facility] 100 [place] [address] Assigned PCP 01/13/21 12/20/23 Kemal Santana MD [address] [place], [place] [phone] Endocrinology, Diabetes, and Metabolism 03/24/22 Jose Cruz Tejada MD 909 [place] [address] Assigned Pulmonology Provider 04/01/23 12/20/23 Deepika Lundy MD [address] [place] [address] Assigned Pulmonology Provider 12/21/23 Consuelo Benson APRN CLEANER HOUSEKEEPING [address] [place] [address] Assigned PCP 12/21/23 03/21/24 Regina Remy MD [address] [place] [address] Assigned PCP 03/22/24 01/19/25 Deepika Lundy MD [address] [place] [address] Critical Care 10/09/24 Consuelo Benson APRN CLEANER HOUSEKEEPING [address] [place] [address] Assigned PCP 01/20/25 06/21/25 Brigitte Harmon APRN CLEANER HOUSEKEEPING [address] [place] [address] Assigned PCP 06/22/25 documented as of this encounter
--- OUTSIDE RECORDS SUMMARY | 2025-06-30 17:53 | XMS_ITS | Encounter Summary ---
Author Organization [facility] Address [address] [place] [address] Care Team Providers Care Elementary School Counselor Name Role Phone Rivka Henning PharmD Unavailable [phone] Brigitte Harmon APRN HOT METAL MIXER OPERATOR HELPER Unavailable [phone] Kemal Santana MD Unavailable [phone] Jose Cruz Tejada MD Unavailable Regina Remy MD Primary Care Provider Brigitte Harmon APRN HOT METAL MIXER OPERATOR HELPER Primary Care Provider Deepika Lundy MD Unavailable Consuelo Benson APRN HOT METAL MIXER OPERATOR HELPER Unavailable [phone] Regina Remy MD Unavailable [phone] Deepika Lundy MD Unavailable Consuelo Benson APRN HOT METAL MIXER OPERATOR HELPER Unavailable [phone] Brigitte Harmon APRN HOT METAL MIXER OPERATOR HELPER Unavailable [phone] Encounter Details Date Type Department Care Team (Late st Contact Info) Description 09/14/2023 [facility] Medical Advice [address] [place] [address] Karol Blanchard Social History Tobacco Use Types Packs/Day Years [...] in an abandoned building, in an overnight correction, or couch-surfing.) Yes 07/12/2023 Are you worried [...] st Contact Info) Description 07/16/2025 2:30 PM ORCHID HAND Virtual Visit [facility] [address] [facility] [address] [place] [address] Deepika Lundy MD [address] [place] [address] documented as of this encounter Visit Diagnoses Not on filedocumented in this encounter Additional Health Concerns Assessment Noted Time PHQ-9 Depression Total Score: 6 07/12/20 23 3:44 PM ORCHID HAND documented as of this encounter Care Teams Elementary School Counselor Relationship Specialty Start Date End Date Regina Remy MD [address] [place] [address] PCP - General Student in organized health care education/training program 07/20/23 11/30/23 Brigitte Harmon APRN HOT METAL MIXER OPERATOR HELPER [address] [place] [address] PCP - General 12/01/23 Rivka Henning, DeloresD Pharmacist Pharmacist 05/08/19 Brigitte Harmon APRN HOT METAL MIXER OPERATOR HELPER [address] [place] [address] Assigned PCP 01/13/21 12/20/23 Kemal Santana MD [address]45 [place] [address] Endocrinology, Diabetes, and Metabolism 03/24/22 Jose Cruz Tejada MD 909 [place] [address] Assigned Pulmonology Provider 04/01/23 12/20/23 Deepika Lundy MD [address] [place] [address] Assigned Pulmonology Provider 12/21/23 Consuelo Benson APRN HOT METAL MIXER OPERATOR HELPER [address] [place] [address] Assigned PCP 12/21/23 03/21/24 Regina Remy MD [address] [place] [address] Assigned PCP 03/22/24 01/19/25 Deepika Lundy MD [address] [place] [address] Critical Care 10/09/24 Consuelo Benson APRN HOT METAL MIXER OPERATOR HELPER [address] [place], [place] [phone] Assigned PCP 01/20/25 06/21/25 Brigitte Harmon APRN HOT METAL MIXER OPERATOR HELPER [address] [place], [place] [phone] Assigned PCP 06/22/25 documented as of this encounter
--- OUTSIDE RECORDS SUMMARY | 2025-06-30 17:53 | XMS_ITS | Encounter Summary ---
Author Organization [place] Address [address] [place] [address] Care Team Providers Care Lithographic Photographer Apprentice Name Role Phone Brigitte Harmon APRN, CNP Primary Care Provider [phone] Rivka Henning PharmD Unavailable [phone] Brigitte Harmon APRN TIRE MOLD TESTER Unavailable [phone] Kemal Santana MD Unavailable [phone] Jose Cruz Tejada MD Unavailable Regina Remy MD Primary Care Provider [phone] Brigitte Harmon APRN TIRE MOLD TESTER Primary Care Provider [phone] Deepika Lundy MD Unavailable Consuelo Benson APRN TIRE MOLD TESTER Unavailable [phone] Regina Remy MD Unavailable [phone] Deepika Lundy MD Unavailable Consuelo Benson APRN TIRE MOLD TESTER Unavailable +[phone] Brigitte Harmon APRN TIRE MOLD TESTER Unavailable +[phone] Encounter Details Date Type Department Care Team (Late st Contact Info) Description 06/06/2023 [facility] [address] [address] Whitley Wei, TIMBO Social History Tobacco Use Types Packs/Day Years [...] st Contact Info) Description 07/16/2025 2:30 PM FLORAL ARRANGER Virtual Visit [facility] [address] [facility] [address] [place] [address] Deepika Lundy MD [address] [facility] [address] [place] [address] documented as of this encounter Visit Diagnoses Not on filedocumented in this encounter Additional Health Concerns Assessment Noted Time PHQ-9 Depression Total Score: 7 05/27/20 22 10:47 AM CDT documented as of this encounter Care Teams Lithographic Photographer Apprentice Relationship Specialty Start Date End Date Brigitte Harmon APRN TIRE MOLD TESTER [address] [place] [address] DAVIS ALEJANDRA [address] PCP - General 09/25/17 07/19/23 Regina Remy MD [address] [place] [address] [phone] PCP - General Student in organized health care education/training program 07/20/23 11/30/23 Brigitte Harmon APRN TIRE MOLD TESTER [address] [place] [address] PCP - General 12/01/23 Rivka Henning, DeloresD [address] [place] [address] [place] [address] Pharmacist Pharmacist 05/08/19 Brigitte Harmon APRN TIRE MOLD TESTER [address] [place] [address] Assigned PCP 01/13/21 12/20/23 Kemal Santana MD [address]45 [place] [address] Endocrinology, Diabetes, and Metabolism 03/24/22 Jose Cruz Tejada MD [address] [place] [address] 118525 Assigned Pulmonology Provider 04/01/23 12/20/23 Deepika Lundy MD [address] [place] [address] Assigned Pulmonology Provider 12/21/23 Consuelo Benson APRN TIRE MOLD TESTER [address] [place], [place] [phone] Assigned PCP 12/21/23 03/21/24 Regina Remy MD 420 [place], [place] 857445 Assigned PCP 03/22/24 01/19/25 Deepika Lundy MD [address] [place] [address] Critical Care 10/09/24 Consuelo Benson APRN TIRE MOLD TESTER [address] [facility] 100 [place] [address] Assigned PCP 01/20/25 06/21/25 Brigitte Harmon APRN TIRE MOLD TESTER [address] [facility] 100 [place] [address] Assigned PCP 06/22/25 documented as of this encounter
--- OUTSIDE RECORDS SUMMARY | 2025-06-30 17:53 | XMS_ITS | Encounter Summary ---
Author Organization [place] Address [address] [place] [address] Care Team Providers Care Frequency Checker Name Role Phone Brigitte Harmon APRN, CNP Primary Care Provider [phone] Rivka Henning PharmD Unavailable [phone] Brigitte Harmon APRN DIRECTOR CPG Unavailable [phone] Kemal Santana MD Unavailable [phone] Jose Cruz Tejada MD Unavailable Regina Remy MD Primary Care Provider [phone] Brigitte Harmon APRN DIRECTOR CPG Primary Care Provider [phone] Deepika Lundy MD Unavailable Consuelo Benson APRN DIRECTOR CPG Unavailable [phone] Regina Remy MD Unavailable [phone] Deepika Lundy MD Unavailable Consuelo Benson APRN DIRECTOR CPG Unavailable +[phone] Brigitte Harmon APRN DIRECTOR CPG Unavailable +[phone] Encounter Details Date Type Department Care Team (Late st Contact Info) Description 04/19/2023 MyC Medical [facility] [address] [address] Whitley Wei, TIMBO Social History [...] st Contact Info) Description 07/16/2025 2:30 PM SCREENER AND BLENDER Virtual Visit [facility] Beam [address] [facility] [address] [place] [address] Deepika Lundy MD [address] [facility] [address] [place] [address] documented as of this encounter Visit Diagnoses Not on filedocumented in this encounter Additional Health Concerns Assessment Noted Time PHQ-9 Depression Total Score: 7 05/27/20 22 10:47 AM CDT documented as of this encounter Care Teams Frequency Checker Relationship Specialty Start Date End Date Brigitte Harmon APRN DIRECTOR CPG [address] [place] [address] DAV[place] ALEJANDRA [address] PCP - General 09/25/17 07/19/23 Regina Remy MD [address] [place] [address] [id number] PCP - General Student in organized health care education/training program 07/20/23 11/30/23 Brigitte Harmon APRN DIRECTOR CPG [address] [facility] [address] [place] [address] PCP - General 12/01/23 Rivka Henning, DeloresD [address] [place] [address] [place] [address] Pharmacist Pharmacist 05/08/19 Brigitte Harmon APRN DIRECTOR CPG [address] [place] [address] Assigned PCP 01/13/21 12/20/23 Kemal Santana MD 2945 [place] [address] Endocrinology, Diabetes, and Metabolism 03/24/22 Jose Cruz Tejada MD [address] [place] [address] 999935 Assigned Pulmonology Provider 04/01/23 12/20/23 Deepika Lundy MD [address] [place] [address] Assigned Pulmonology Provider 12/21/23 Consuelo Benson APRN DIRECTOR CPG [address] [place], [place] [phone] Assigned PCP 12/21/23 03/21/24 Regina Remy MD 420 [place], [place] 512245 Assigned PCP 03/22/24 01/19/25 Deepika Lundy MD [address] [place] [address] Critical Care 10/09/24 Consuelo Benson APRN DIRECTOR CPG [address] [facility] 100 [place] [address] Assigned PCP 01/20/25 06/21/25 Brigitte Harmon APRN DIRECTOR CPG [address] [facility] 100 [place] [address] Assigned PCP 06/22/25 documented as of this encounter
--- OUTSIDE RECORDS SUMMARY | 2025-06-30 17:54 | XMS_ITS | Encounter Summary ---
Author Organization [place] Address [address] [place] [address] Care Team Providers Care Dining Services Manager Name Role Phone Brigitte Harmon APRN, CNP Primary Care Provider [phone] Rivka Henning PharmD Unavailable [phone] Deepika Lundy MD Unavailable Brigitte Harmon APRN IT SENIOR ANALYST Unavailable +-3 Catalina Bain PA-C Unavailable Unavailable Kemal Santana MD Unavailable [phone] Jose Cruz Tejada MD Unavailable Deepika Lundy MD Unavailable Jose Cruz Tejada MD Unavailable Regina Remy MD Primary Care Provider [phone] Brigitte Harmon APRN, CNP Primary Care Provider [phone] Deepika Lundy MD Unavailable Consuelo Benson APRN, CNP Unavailable [phone] Regina Remy MD Unavailable [phone] Deepika Lundy MD Unavailable Consuelo Benson APRN IT SENIOR ANALYST Unavailable [phone] Brigitte Harmon APRN, CNP Unavailable +-3 Encounter Details Date Type Department Care Team (Late st Contact Info) Description 05/15/2019 Records - [facility] CONVERSION Scan, Non-Provider Social History Tobacco Use Types Packs/Day Years Used Date Smoking Tobacco: Never Assessed Comments Unknown Sex and Gender Information Value Date Recorded Sex Assigned at Not on file Legal Sex Female 11:54 AM CDT Gender Identity Not on file Sexual Orientation Not on file documented as of this encounter Plan of Treatment Upcoming Encounters Date Type Department Care Team (Late Contact Info) Description 07/16/2025 2:30 PM DIESEL ENGINEER Virtual Visit [facility] Beam [address] [facility] [address] [place] [address] Deepika Lundy MD [address] [place] [address] documented as of this encounter Visit Diagnoses Not on filedocumented in this encounter Care Teams Dining Services Manager Relationship Specialty Start Date End Date Brigitte Harmon APRN IT SENIOR ANALYST [address] [place] [address] PCP - General 09/25/17 07/19/23 Regian Remy MD [address] [place] [address] PCP - General Student in organized health care education/training program 07/20/23 11/30/23 Brigitte Harmon APRN IT SENIOR ANALYST [address] [facility] [address] [place] [address] PCP - General 12/01/23 Rivka Henning, DeloresD [address] [place] [address] Pharmacist Pharmacist 05/08/19 Deepika Lundy MD [address] [facility] [address] [place], [place] [phone] Assigned Pulmonology Provider 02/12/21 11/25/22 Brigitte Harmon APRN IT SENIOR ANALYST [address] [place] [address] Assigned PCP 01/13/21 12/20/23 Catalina Bain PA-C XXX [place] LICENSE /INACTIVE SINCE JUL 2011 XXX Assigned Surgical Provider 02/12/21 09/23/22 Kemal Santana MD [address] [place], [place] [phone] Endocrinology, Diabetes, and Metabolism 03/24/22 Jose Cruz Tejada MD [address] [place] [address] Assigned Pulmonology Provider 11/26/22 12/02/22 Deepika Lundy MD [address] [place] [phone] Assigned Pulmonology Provider 12/03/22 03/31/23 Jose Cruz Tejada MD [address] [place] [address] Assigned Pulmonology Provider 04/01/23 12/20/23 Deepika Lundy MD [address] [place] [phone] Assigned Pulmonology Provider 12/21/23 Consuelo Benson APRN IT SENIOR ANALYST [address] [place] [address] Assigned PCP 12/21/23 03/21/24 Regina Remy MD [address] [place] [address] Assigned PCP 03/22/24 01/19/25 Deepika Lundy MD [address] [place] [address] Critical Care 10/09/24 Consuelo Benson APRN IT SENIOR ANALYST [address] [place], [place] [phone] Assigned PCP 01/20/25 06/21/25 Brigitte Harmon APRN IT SENIOR ANALYST [address] [place], [place] [phone] Assigned PCP 06/22/25 documented as of this encounter
--- OUTSIDE RECORDS SUMMARY | 2025-06-30 17:54 | XMS_ITS | Encounter Summary ---
Author Organization [place] Address [address] [place] [address]. [place] [address] Care Team Providers Care Floor Installation Mechanic Name Role Phone Juvencio Rivka PharmD Unavailable [phone] Kemal Santana MD Unavailable [phone] Brigitte Harmon RUBBING BED OPERATOR LENS FINISHER Primary Care Provider [phone] Deepika Lundy MD Unavailable Regina Remy MD Unavailable Deepika Lundy MD Unavailable Consuelo Benson APRN LENS FINISHER Unavailable Brigitte Harmon APRN LENS FINISHER Unavailable Encounter Details Date Type Department Care Team (Late st Contact Info) Description 12/18/2024 MyC Medical Advice [facility] [address] [place] [phone] Brigitte Harmon APRN LENS FINISHER [address] [place], [place] [phone] Social History Tobacco Use Types Packs/Day Years Used Date Smoking Tobacco: Former Cigarettes 1 30 0 08/31/1979 - 08/31/2009 Passive Smoke Exposure: Past Smokeless Tobacco: Never Alcohol Use Standard Drinks/Week Comments No 0 (1 standard drink = 0.6 oz pur e alcohol) Social Connection and Isolation Panel Answer Date Recorded Frequency of Communication with Friends and Fami ly Not on file 12/01/2023 How often do you get together with friends or re latives? Once a week 12/01/2023 Attends Cheondoism Services Not on file 11/30 Active Member of Clubs or Organizations Not on f ile 12/01/2023 Attends Club or Organization Meetings Not on mckayla e 12/01/2023 Marital Status Not on file 12/01/2023 PHQ-2 Answer Date Recorded PHQ-2 Score 6 11/29/2024 [facility] - Occupational Stress [...] Answer Date Recorded Do you have housing? (Rosalio g is defined as stable permanent housing and does not include staying outside in a car, in a tent, in an abandoned building, in an overnight fdc, or couch-surfing.) No 12/01/2023 Are you worried [...] getting things that you need? No 12/01/2023 Comments No Sex and Gender Information Value Date Recorded Sex Assigned at Not on file Legal Sex Female 11:54 AM CDT Gender Identity Not on file Sexual Orientation Not on file documented as of this encounter Plan of Treatment Upcoming Encounters Date Type Department Care Team (Late st Contact Info) Description 07/16/2025 2:30 PM STOCKROOM WORKER Virtual Visit [facility] Beam [address] [facility] [address] [place] [address] Deepika Lundy MD [address] [place] [address] documented as of this encounter Visit Diagnoses Not on filedocumented in this encounter Additional Health Concerns Assessment Noted Time PHQ-9 Depression Total Score: 15 025 11:58 AM CDT documented as of this encounter Care Teams Floor Installation Mechanic Relationship Specialty Start Date End Date Brigitte Harmon APRN LENS FINISHER [address] [place], [place] [phone] PCP - General 12/01/23 Rivka Henning, DeloresD Pharmacist Pharmacist 05/08/19 [place] [address] [place] [phone] Endocrinology, Diabetes, and Metabolism 03/24/22 Deepika Lundy MD [address] [place] [address] Assigned Pulmonology Provider 12/21/23 Regina Remy MD [address] [place] [address] Assigned PCP 03/22/24 01/19/25 Deepika Lundy MD [address] [place] [phone] Critical Care 10/09/24 Consuelo Benson APRN LENS FINISHER [address] [place] [phone] Assigned PCP 01/20/25 06/21/25 Brigitte Harmon APRN LENS FINISHER [address] [place] [phone] Assigned PCP 06/22/25 documented as of this encounter
--- OUTSIDE RECORDS SUMMARY | 2025-06-30 17:54 | XMS_ITS | Encounter Summary ---
Author Organization [place] Address [address] [place] [address] Care Team Providers Care Production Cloth Cutter Name Role Phone Brigitte Harmon APRN, CNP Primary Care Provider [phone] Rivka Henning PharmD Unavailable [phone] Deepika Lundy MD Unavailable Brigitte Harmon APRN VACUUM SPINDLE SANDER Unavailable +-3 Catalina Bain PA-C Unavailable Unavailable Kemal Santana MD Unavailable [phone] Jose Cruz Tejada MD Unavailable Deepika Lundy MD Unavailable Jose Cruz Tejada MD Unavailable Regina Remy MD Primary Care Provider [phone] Brigitte Harmon APRN, CNP Primary Care Provider [phone] Deepika Lundy MD Unavailable Consuelo Benson APRN, CNP Unavailable +[phone] Regina Remy MD Unavailable [phone] Deepika Lundy MD Unavailable Consuelo Benson APRN VACUUM SPINDLE SANDER Unavailable [phone] Brigitte Harmon APRN, CNP Unavailable +-3 Encounter Details Date Type Department Care Team (Late st Contact Info) Description 09/07/2022 MyC Medical Advice [facility] [address] [phone] Jose Cruz Tejada MD [address] [place] [address] ILD (interstitial lung disease) (H); Simple chronic bronchitis (H); Sarcoidosis; Moderate persistent asthma, unspecified whether complicated; Dyspnea on exertion Social History Tobacco Use Types Packs/Day Years Used Date Smoking Tobacco: Former Cigarettes 1 30 0 08/31/1979 - 08/31/2009 Smokeless Tobacco: Never Alcohol Use Standard Drinks/Week Comments No 0 (1 standard drink = 0.6 oz pur e alcohol) PHQ-2 Answer Date Recorded PHQ-2 Score 1 07/01/2022 Comments No Sex and Gender Information Value Date Recorded Sex Assigned at Not on file Legal Sex Female 11:54 AM CDT Gender Identity Not on file Sexual Orientation Not on file documented as of this encounter Plan of Treatment Upcoming Encounters Date Type Department Care Team (Late Contact Info) Description 07/16/2025 2:30 PM INSTRUCTOR LOOPING Virtual Visit [facility] [address] [address] Deepika Lundy MD [address] [place] [address] documented as of this encounter Visit [...] documented as of this encounter Care Teams Production Cloth Cutter Relationship Specialty Start Date End Date Brigitte Harmon APRN VACUUM SPINDLE SANDER [address] [place] [address] PCP - General 09/25/17 07/19/23 Regina Remy MD 420 [place] [address] PCP - General Student in organized health care education/training program 07/20/23 11/30/23 Brigitte Harmon SKI MAKER WOOD VACUUM SPINDLE SANDER [address] [place], [place] [phone] PCP - General 12/01/23 Rivka Henning, PharmD [address] [facility] [place] [address] Pharmacist Pharmacist 05/08/19 Deepika Lundy MD [address] [facility] [address] [place], [place] [phone] Assigned Pulmonology Provider 02/12/21 11/25/22 Brigitte Harmon APRN VACUUM SPINDLE SANDER [address] [place] [address] Assigned PCP 01/13/21 12/20/23 Catalina Bain PA-C XXX [place] LICENSE /INACTIVE SINCE JUL 2011 XXX Assigned Surgical Provider 02/12/21 09/23/22 Kemal Santana MD 2945 [place] [address] Endocrinology, Diabetes, and Metabolism 03/24/22 Jose Cruz Tejada MD 909 [place] [address] Assigned Pulmonology Provider 11/26/22 12/02/22 Deepika Lundy MD [address] [place] [address] Assigned Pulmonology Provider 12/03/22 03/31/23 Jose Cruz Tejada MD [address] [place] [address] Assigned Pulmonology Provider 04/01/23 12/20/23 Deepika Lundy MD [address] [place] [address] Assigned Pulmonology Provider 12/21/23 Consuelo Benson APRN VACUUM SPINDLE SANDER [address] [place], [place] [phone] Assigned PCP 12/21/23 03/21/24 Regina Remy MD 420 [place] [address] Assigned PCP 03/22/24 01/19/25 Deepika Lundy MD [address] [place] [address] Critical Care 10/09/24 Consuelo Benson APRN VACUUM SPINDLE SANDER [address] [place], [place] [phone] Assigned PCP 01/20/25 06/21/25 Brigitte Harmon APRN VACUUM SPINDLE SANDER [address] [place], [place] [phone] Assigned PCP 06/22/25 documented as of this encounter
--- OUTSIDE RECORDS SUMMARY | 2025-06-30 17:54 | XMS_ITS | Encounter Summary ---
Author Organization [place] Address [address] [place] [address] Care Team Providers Care Performance Specialist Name Role Phone Brigitte Harmon APRN, CNP Primary Care Provider [phone] Rivka Henning PharmD Unavailable [phone] Deepika Lundy MD Unavailable Brigitte Harmon APRN REEL STRIPPER Unavailable +-3 Catalina Bain PA-C Unavailable Unavailable Kemal Santana MD Unavailable [phone] Jose Cruz Tejada MD Unavailable Deepika Lundy MD Unavailable Jose Cruz Tejada MD Unavailable Regina Remy MD Primary Care Provider [phone] Brigitte Harmon APRN, CNP Primary Care Provider [phone] Deepika Lundy MD Unavailable Consuelo Benson APRN, CNP Unavailable [phone] Regina Remy MD Unavailable [phone] Deepika Lundy MD Unavailable Consuelo Benson APRN, CNP Unavailable [phone] Brigitte Harmon APRN, CNP Unavailable +[phone] Reason for Visit * Reason Onset Date Comments Refill Request 05/18/2022 Encounter Details Date Type Department Care Team (Late st Contact Info) Description 05/18/2022 MyC Refill [facility] [address] [phone] Jose Cruz Tejada MD [address] [place] [address] Refill Request Social History Tobacco Use Types Packs/Day Years Used Date Smoking Tobacco: Former Cigarettes 1 30 0 08/31/1979 - 08/31/2009 Smokeless Tobacco: Never Alcohol Use Standard Drinks/Week Comments No 0 (1 standard drink = 0.6 oz pur e alcohol) PHQ-2 Answer Date Recorded PHQ-2 Score 1 12/01/2021 Comments No Sex and Gender Information Value Date Recorded Sex Assigned at Not on file Legal Sex Female 11:54 AM CDT Gender Identity Not on file Sexual Orientation Not on file documented as of this encounter Plan of Treatment Upcoming Encounters Date Type Department Care Team (Late st Contact Info) Description 07/16/2025 2:30 PM WELDER FITTER ARC Virtual Visit [facility] [address] [address] Deepika Lundy MD [address] [place] [address] documented as of this encounter Visit [...] documented as of this encounter Care Teams Performance Specialist Relationship Specialty Start Date End Date Brigitte Harmon APRN REEL STRIPPER [address] [place] [address] PCP - General 09/25/17 07/19/23 Regina Remy MD 420 [place] [address] PCP - General Student in organized health care education/training program 07/20/23 11/30/23 Brigitte Harmon APRN REEL STRIPPER [address] [place], [place] [phone] PCP - General 12/01/23 Rivka Henning, PharmD [address] [facility] [place] [address] Pharmacist Pharmacist 05/08/19 Deepika Lundy MD 1600 [facility] [address] [place], [place] [phone] Assigned Pulmonology Provider 02/12/21 11/25/22 Brigitte Harmon APRN REEL STRIPPER [address] [place] [address] Assigned PCP 01/13/21 12/20/23 Catalina Bain PA-C XXX [place] LICENSE /INACTIVE SINCE JUL 2011 XXX Assigned Surgical Provider 02/12/21 09/23/22 Kemal Santana MD 2945 [place] [address] Endocrinology, Diabetes, and Metabolism 03/24/22 Jose Cruz Tejada MD 909 [place] [address] Assigned Pulmonology Provider 11/26/22 12/02/22 Deepika Lundy MD [facility] [facility] [address] [place] [phone] Assigned Pulmonology Provider 12/03/22 03/31/23 Jose Cruz Tejada MD 909 [place] [address] Assigned Pulmonology Provider 04/01/23 12/20/23 Deepika Lundy MD [address] [place] [address] Assigned Pulmonology Provider 12/21/23 Consuelo Benson APRN REEL STRIPPER [address] [phone] Assigned PCP 12/21/23 03/21/24 Regina Remy MD 420 [place] [address] Assigned PCP 03/22/24 01/19/25 Deepika Lundy MD [address] [place] [phone] Critical Care 10/09/24 Consuelo Benson APRN REEL STRIPPER [address] [id number] Assigned PCP 01/20/25 06/21/25 Brigitte Harmon APRN REEL STRIPPER [address] [phone] Assigned PCP 06/22/25 documented as of this encounter
--- OUTSIDE RECORDS SUMMARY | 2025-06-30 17:54 | XMS_ITS | Encounter Summary ---
Author Organization [facility] Address [address] [place] [address] Care Team Providers Care Radiation Therapy Technologist Name Role Phone Brigitte Harmon APRN, CNP Primary Care Provider [phone] Rivka Henning PharmD Unavailable [phone] Deepika Lundy MD Unavailable Brigitte Harmon APRN SOFTWARE BUILD ENGINEER Unavailable +-3 Catalina Bain PA-C Unavailable Unavailable Kemal Santana MD Unavailable [phone] Jose Cruz Tejada MD Unavailable Deepika Lundy MD Unavailable Jose Cruz Tejada MD Unavailable Regina Remy MD Primary Care Provider [phone] Brigitte Harmon APRN, CNP Primary Care Provider [phone] Deepika Lundy MD Unavailable Consuelo Benson APRN, CNP Unavailable +[phone] Regina Remy MD Unavailable [phone] Deepika Lundy MD Unavailable Consuelo Benson APRN SOFTWARE BUILD ENGINEER Unavailable [phone] Brigitte Harmon APRN, CNP Unavailable +-3 Encounter Details Date Type Department Care Team (Late st Contact Info) Description 07/15/2018 Records - [facility] HE CONVERSION Scan, Non-Provider [...] (Late Contact Info) Description 07/16/2025 2:30 PM TORPEDO SHOOTER Virtual Visit [facility] [place] [address] [place] [address] Deepika Lundy MD [address] [place] [address] documented as of this encounter Visit Diagnoses Not on filedocumented in this encounter Care Teams Radiation Therapy Technologist Relationship Specialty Start Date End Date Brigitte Harmon APRN SOFTWARE BUILD ENGINEER [address] [place] [address] PCP - General 09/25/17 07/19/23 Regina Remy MD [address] [place] [address] PCP - General Student in organized health care education/training program 07/20/23 11/30/23 Brigitte Harmon APRN SOFTWARE BUILD ENGINEER [facility] [facility] [address] [place] [address] PCP - General 12/01/23 Rivka Henning, DeloresD [address] [place] [address] Pharmacist Pharmacist 05/08/19 Deepika Lundy MD [address] [facility] [address] [place], [place] [address] Assigned Pulmonology Provider 02/12/21 11/25/22 Brigitte Harmon APRN SOFTWARE BUILD ENGINEER [address] [place] [address] Assigned PCP 01/13/21 12/20/23 Catalina Bain PA-C XXX [place] LICENSE /INACTIVE SINCE JUL 2011 XXX Assigned Surgical Provider 02/12/21 09/23/22 Kemal Santana MD [address] [place], [place] [id number] Endocrinology, Diabetes, and Metabolism 03/24/22 Jose Cruz Tejada MD [address] [place] [address] Assigned Pulmonology Provider 11/26/22 12/02/22 Deepika Lundy MD [address] [place] [phone] Assigned Pulmonology Provider 12/03/22 03/31/23 Jose Cruz Tejada MD [address] [place] [address] Assigned Pulmonology Provider 04/01/23 12/20/23 Deepika Lundy MD [address] [place] [phone] Assigned Pulmonology Provider 12/21/23 Consuelo Benson APRN SOFTWARE BUILD ENGINEER [address] [place] [address] Assigned PCP 12/21/23 03/21/24 Regina Remy MD [address] [place] [address] Assigned PCP 03/22/24 01/19/25 Deepika Lundy MD [address] [place] [address] Critical Care 10/09/24 Consuelo Benson APRN SOFTWARE BUILD ENGINEER [address] [place], [place] [phone] Assigned PCP 01/20/25 06/21/25 Brigitte Harmon APRN SOFTWARE BUILD ENGINEER [address] [place], [place] [phone] Assigned PCP 06/22/25 documented as of this encounter
--- OUTSIDE RECORDS SUMMARY | 2025-06-30 17:54 | XMS_ITS | Encounter Summary ---
Author Organization [facility] Address [address] [place] [address]. [place] [address] Care Team Providers Care Trackwalker Name Role Phone Brigitte Harmon APRN APPLICATION MANAGER Primary Care Provider [phone] Rivka Henning PharmD Unavailable [phone] Brigitte Harmon APRN APPLICATION MANAGER Unavailable +-3 Kemal Santana MD Unavailable [phone] Deepika Lundy MD Unavailable Jose Cruz Tejada MD Unavailable Regina Remy MD Primary Care Provider [phone] Brigitte Harmon APRN APPLICATION MANAGER Primary Care Provider [phone] Deepika Lundy MD Unavailable Consuelo Benson APRN APPLICATION MANAGER Unavailable [phone] Regina Remy MD Unavailable [phone] Deepika Lundy MD Unavailable Consuelo Benson APRN APPLICATION MANAGER Unavailable [phone] Brigitte Harmon APRN APPLICATION MANAGER Unavailable +-3 Encounter Details Date Type Department Care Team (Late st Contact Info) Description 12/29/2022 [facility] Medical Advice [facility] [address] [place] [address] 100 [place] [address] Brigitte Harmon APRN CNP 1099 [facility] 100 [place] [address] Social History Tobacco Use Types Packs/Day Years [...] encounter Miscellaneous Notes * Telephone Encounter - Brigitte Harmon APRN CNP - 12/29/2022 4:58 PM CDT I sent the prescription to the pharmacy. Thanks. * Telephone Encounter - My Dunne RN - 12/29/2022 12:08 PM CDT documented in this encounter Plan of Treatment Upcoming Encounters Date Type Department Care Team (Late st Contact Info) Description 07/16/2025 2:30 PM RADIATION PROTECTION SPECIALIST Virtual Visit [facility] [address] [place] [address] Deepika Lundy MD [address] [place] [address] 111 [place] [address] documented as of this encounter Visit Diagnoses Not on filedocumented in this encounter Additional Health Concerns Assessment Noted Time PHQ-9 Depression Total Score: 7 05/27/20 22 10:47 AM CDT documented as of this encounter Care Teams Trackwalker Relationship Specialty Start Date End Date Brigitte Harmon APRN CNP [address] [place] [address] PCP - General 09/25/17 07/19/23 Regina Remy MD [address] [place] [address] PCP - General Student in organized health care education/training program 07/20/23 11/30/23 Brigitte Harmon APRN APPLICATION MANAGER [address] [place], [place] [phone] PCP - General 12/01/23 Rivka Henning, PharmD [address] [place], [place] [address] [address] Pharmacist Pharmacist 05/08/19 Brigitte Harmon APRN APPLICATION MANAGER [address] [place] [address] Assigned PCP 01/13/21 12/20/23 Kemal Santana MD [address] [place], [place] [phone] Endocrinology, Diabetes, and Metabolism 03/24/22 Deepika Lundy MD [address] [place] [phone] Assigned Pulmonology Provider 12/03/22 03/31/23 Jose Cruz Tejada MD [address] [place] [address] Assigned Pulmonology Provider 04/01/23 12/20/23 Deepika Lundy MD [address] [place] [address] Assigned Pulmonology Provider 12/21/23 Consuelo Benson APRN APPLICATION MANAGER [address] [place], [place] [phone] Assigned PCP 12/21/23 03/21/24 Regina Remy MD [address] [place] [address] Assigned PCP 03/22/24 01/19/25 Deepika Lundy MD [address] [place] [address] Critical Care 10/09/24 Consuelo Benson APRN APPLICATION MANAGER [address] [place] [address] Assigned PCP 01/20/25 06/21/25 Brigitte Harmon APRN APPLICATION MANAGER [address] [place], [place] [phone] Assigned PCP 06/22/25 documented as of this encounter
--- OUTSIDE RECORDS SUMMARY | 2025-06-30 17:54 | XMS_ITS | Encounter Summary ---
Author Organization [facility] Address [address] [place] [address] Care Team Providers Care Traffic Worker Name Role Phone Juvencio Rivka PharmD Unavailable [phone] Kemal Santana MD Unavailable [phone] Brigitte Harmon CITY MAIL CARRIER SHIP'S CAPTAIN Primary Care Provider [phone] Deepika Lundy MD Unavailable Deepika Lundy MD Unavailable Consuelo Benson APRN SHIP'S CAPTAIN Unavailable [phone] Encounter Details Date Type Department Care Team (Latest Contact Info) Description 06/19/2025 Travel Social History Tobacco Use Types Packs/Day Years Used Date Smoking Tobacco: Former Cigarettes 1 30 0 08/31/1979 - 08/31/2009 Passive Smoke Exposure: Past Smokeless Tobacco: Never Alcohol Use Standard Drinks/Week Comments Not Currently 0 (1 standard drink = 0.6 oz pur e alcohol) Social Connection and Isolation Panel Answer Date Recorded Frequency of Communication with Friends and Fami ly Not on file 12/01/2023 How often do you get together with friends or re latives? Once a week 12/01/2023 Attends Protestant Services Not on file 11/30 Active Member of Clubs or Organizations Not on f ile 12/01/2023 Attends Club or Organization Meetings Not on mckayla e 12/01/2023 Marital Status Not on file 12/01/2023 PHQ-2 Answer Date Recorded PHQ-2 Score 0 06/19/2025 [facility] - Occupational Stress [...] st Contact Info) Description 07/16/2025 2:30 PM ETHNOARCHAEOLOGY PROFESSOR Virtual Visit [facility]am [address] [facility] [address] [place] [address] Deepika Lundy MD [address] [place] [address] documented as of this encounter Visit Diagnoses Not on filedocumented in this encounter Additional Health Concerns Assessment Noted Time PHQ-9 Depression Total Score: 2 06/19/20 9:45 AM ETHNOARCHAEOLOGY PROFESSOR documented as of this encounter Care Teams Traffic Worker Relationship Specialty Start Date End Date Brigitte Harmon APRN SHIP'S CAPTAIN [address] [place], [place] [phone] PCP - General 12/01/23 Rivka Henning, PharmD Pharmacist Pharmacist 05/08/19 Kemal Santana MD [address]45 [place] [address] Endocrinology, Diabetes, and Metabolism 03/24/22 Deepika Lundy MD [address] [place] [address] Assigned Pulmonology Provider 12/21/23 Deepika Lundy MD [address] [place] [address] Critical Care 10/09/24 Consuelo Benson APRN SHIP'S CAPTAIN [address] [place] [address] Assigned PCP 01/20/25 06/21/25 documented as of this encounter
--- OUTSIDE RECORDS SUMMARY | 2025-06-30 17:54 | XMS_ITS | Encounter Summary ---
Author Organization [facility] Address [address] [place] [address] Care Team Providers Care Purchasing Analyst Name Role Phone Brigitte Harmon APRN, CNP Primary Care Provider [phone] Rivka Henning PharmD Unavailable [phone] Deepika Lundy MD Unavailable Brigitte Harmon APRN ASSISTANT PARALEGAL Unavailable +-3 Catalina Bain PA-C Unavailable Unavailable Kemal Santana MD Unavailable [phone] Jose Cruz Tejada MD Unavailable Deepika Lundy MD Unavailable Jose Cruz Tejada MD Unavailable Regina Remy MD Primary Care Provider [phone] Brigitte Harmon APRN, CNP Primary Care Provider [phone] Deepika Lundy MD Unavailable Consuelo Benson APRN, CNP Unavailable [phone] Regina Remy MD Unavailable [phone] Deepika Lundy MD Unavailable Consuelo Benson APRN, CNP Unavailable [phone] Brigitte Harmon APRN, CNP Unavailable [phone] Reason for Visit * Reason Onset Date Comments Refill Request 09/07/2022 Encounter Details Date Type Department Care Team (Late st Contact Info) Description 09/07/2022 MyC Refill [facility] [address] [phone] Jose Cruz Tejada MD [address] [place] [address] Refill Request Social History Tobacco Use Types [...] st Contact Info) Description 07/16/2025 2:30 PM UNIT CONTROL CLERK Virtual Visit [facility] [address] [address] Deepika Lundy MD [address] [place] [address] documented as of this encounter Visit Diagnoses Diagnosis Sarcoidosis documented in this encounter Additional Health Concerns Assessment Noted Time PHQ-9 Depression Total Score: 7 05/27/20 22 10:47 AM CDT documented as of this encounter Care Teams Purchasing Analyst Relationship Specialty Start Date End Date Brigitte Harmon APRN ASSISTANT PARALEGAL [address] [place], [place] [address] [phone] PCP - General 09/25/17 07/19/23 Regina Remy MD [address] [place] [address]85 PCP - General Student in organized health care education/training program 07/20/23 11/30/23 Briigtte Harmon APRN ASSISTANT PARALEGAL [address] [place] [address] PCP - General 12/01/23 Rivka Henning, DeloresD [address] [facility] [place] [address] Pharmacist Pharmacist 05/08/19 Deepika Lundy MD [address] [facility] [address] [place] [address] Assigned Pulmonology Provider 02/12/21 11/25/22 Brigitte Harmon APRN ASSISTANT PARALEGAL [address] [place] [address] Assigned PCP 01/13/21 12/20/23 Catalina Bain PA-C XXX [place] LICENSE /INACTIVE SINCE JUL 2011 XXX Assigned Surgical Provider 02/12/21 09/23/22 Kemal Santana MD [address]45 [place] [address] Endocrinology, Diabetes, and Metabolism 03/24/22 Jose Cruz Tejada MD 909 [place] [address] Assigned Pulmonology Provider 11/26/22 12/02/22 Deepika Lundy MD [address] [facility] [address] [place] [address] Assigned Pulmonology Provider 12/03/22 03/31/23 Jose Cruz Tejada MD [address] [place] [address] Assigned Pulmonology Provider 04/01/23 12/20/23 Deepika Lundy MD [address] [place] [address] Assigned Pulmonology Provider 12/21/23 Consuelo Benson APRN ASSISTANT PARALEGAL [address] [place], [place] [phone] Assigned PCP 12/21/23 03/21/24 Regina Remy MD [address] [place] [address] Assigned PCP 03/22/24 01/19/25 Deepika Lundy MD [address] [place] [address] Critical Care 10/09/24 Consuelo Benson APRN ASSISTANT PARALEGAL [address] [facility] 100 [place] [address] Assigned PCP 01/20/25 06/21/25 Brigitte Harmon APRN ASSISTANT PARALEGAL [address] [place], [place] [address] Assigned PCP 06/22/25 documented as of this encounter
--- OUTSIDE RECORDS SUMMARY | 2025-06-30 17:54 | XMS_ITS | Encounter Summary ---
Author Organization [facility] Address [address] [place] [address]. [place] [address] Care Team Providers Care Pattern Keeper Name Role Phone Rivka Henning PharmD Unavailable [phone] Kemal Santana MD Unavailable [phone] Brigitte Harmon APRN NURSING PROGRAM CHAIR Primary Care Provider Deepika Lundy MD Unavailable Deepika Lundy MD Unavailable Brigitte Harmon APRN NURSING PROGRAM CHAIR Unavailable [phone] Reason for Visit * Reason Onset Date Comments Prior Auth - Medication 06/25/2025 zepbound 2.5 mg/0.5 ml inj (4 pf pens) Encounter Details Date Type Department Care Team (Late st Contact Info) Description 06/25/2025 Telephone [facility] [address] [place] [address] Brigitte Harmon APRN NURSING PROGRAM CHAIR [address] [place] [address] Prior Auth - Medication ( zepbound 2.5 mg/0.5 ml inj (4 pf pens) ) Social History Tobacco Use Types Packs/Day Years [...] re latives? Once a week 12/01/2023 Attends [employer] Not on file 11/30 Active Member of Clubs or Organizations Not on f ile 12/01/2023 Attends Club or Organization Meetings Not on mckayla e 12/01/2023 Marital Status Not on file 12/01/2023 PHQ-2 Answer Date Recorded PHQ-2 Score 0 06/19/2025 [facility] - [...] in an abandoned building, in an overnight intermediate, or couch-surfing.) No 12/01/2023 Are you worried [...] encounter Miscellaneous Notes * Telephone Encounter - Faye Powell - 06/30/2025 8:49 AM CST Images from the original note were not included. PRIOR AUTHORIZATION DENIED Medication: zepbound 2.5 mg/0.5 ml inj (4 pf pens) Denial Date: 06/30/2025 Denial Rational: Medication is a plan exclusion TIC SHAPER * Telephone Encounter - Faye Powell - 06/27/2025 10:34 AM CST Images from the original note were not included. Retail Medication Prior Authorization Team PA Initiation Medication: zepbound 2.5 mg/0.5 ml inj (4 pf pens) Insurance Company: Comment: Rx Benefits Pharmacy Filling the Rx: [id number] - [place], [place] - [address] [facility] [place] [address] [address] [facility] Filling Pharmacy Filling Pharmacy Fax: Start Date: 06/27/2025 Prior Auth (EOC) ID: [id number] TIC SHAPER * Telephone Encounter - Stacy Bartholomew - 06/25/2025 8:38 AM CST Prior Authorization Retail Medication Request Medication/Dose: zepbound 2.5 mg/0.5 ml inj (4 pf pens) Diagnosis and ICD code (if different than what is on RX): New/renewal/insurance change PA/secondary ins. PA: Previously Tried and Failed: Rationale: Insurance Primary: [facility] Pharmacy Information (if different than what is on RX) Name: [facility] Information Preferred routing pool for dept communication: [facility] TIC SHAPER documented in this encounter Plan of Treatment Upcoming Encounters Date Type Department Care Team (Late st Contact Info) Description 07/16/2025 2:30 PM PLASTIC SHAPER Virtual Visit [facility] [address] [place] [address] [address] [place] [address] [place] [address] [place], [place] [address]E [facility] [address] [place] [address] documented as of this encounter Visit Diagnoses Not on filedocumented in this encounter Additional Health Concerns Assessment Noted Time PHQ-9 Depression Total Score: 2 06/19/20 25 9:45 AM PLASTIC SHAPER documented as of this encounter Care Teams Pattern Keeper Relationship Specialty Start Date End Date Brigitte Harmon APRN NURSING PROGRAM CHAIR [address] [facility] [address] [place], [place] [phone] PCP - General 12/01/23 Rivka Henning PharmD Pharmacist Pharmacist 05/08/19 Kemal Santana MD [facility] [place], [place] [phone] Endocrinology, Diabetes, and Metabolism 03/24/22 Deepika Lundy MD [address] [place] [address] Assigned Pulmonology Provider 12/21/23 Deepika Lundy MD [address] [place] [address] Critical Care 10/09/24 Brigitte Harmon APRN NURSING PROGRAM CHAIR [address] [place], [place] [address] Assigned PCP 06/22/25 documented as of this encounter
--- OUTSIDE RECORDS SUMMARY | 2025-06-30 17:54 | XMS_ITS | Encounter Summary ---
Author Organization [facility] Address [address] [place] [address] Care Team Providers Care Configuration Management Specialist Name Role Phone Brigitte Harmon APRN, CNP Primary Care Provider [phone] Rivka Henning PharmD Unavailable [phone] Deepika Lundy MD Unavailable Brigitte Harmon APRN SERVICE TECHNICIAN Unavailable +-3 Catalina Bain PA-C Unavailable Unavailable Kemal Santana MD Unavailable [phone] Jose Cruz Tejada MD Unavailable Deepika Lundy MD Unavailable Jose Cruz Tejada MD Unavailable Regina Remy MD Primary Care Provider [phone] Brigitte Harmon APRN, CNP Primary Care Provider [phone] Deepika Lundy MD Unavailable Consuelo Benson APRN, CNP Unavailable [phone] Regina Remy MD Unavailable [phone] Deepika Lundy MD Unavailable Consuelo Benson APRN SERVICE TECHNICIAN Unavailable [phone] Brigitte Harmon APRN, CNP Unavailable +-3 Encounter Details Date Type Department Care Team (Late st Contact Info) Description 05/08/2019 Records - [facility] HE CONVERSION Scan, Non-Provider [...] (Late Contact Info) Description 07/16/2025 2:30 PM TECHNOLOGY ASSISTANT Virtual Visit [facility] Beam [address] [facility] [address] [place] [address] Deepika Lundy MD [address] [facility] [address] [place] [address] documented as of this encounter Visit Diagnoses Not on filedocumented in this encounter Care Teams Configuration Management Specialist Relationship Specialty Start Date End Date Brigitte Harmon APRN SERVICE TECHNICIAN [address] [place] [address] PCP - General 09/25/17 07/19/23 Regina Remy MD [address] [place] [address] PCP - General Student in organized health care education/training program 07/20/23 11/30/23 Brigitte Harmon APRN SERVICE TECHNICIAN [address] [facility] [address] [place] [address] PCP - General 12/01/23 Rivka Henning, DeloresD [address] [place] [address] Pharmacist Pharmacist 05/08/19 Deepika Lundy MD [address] [facility] [address] [facility] [place] [address] Assigned Pulmonology Provider 02/12/21 11/25/22 Brigitte Harmon APRN SERVICE TECHNICIAN [address] [place] [address] Assigned PCP 01/13/21 12/20/23 Catalina Bain PA-C XXX [place] LICENSE /INACTIVE SINCE JUL 2011 XXX Assigned Surgical Provider 02/12/21 09/23/22 Kemal Santana MD [address] [place], [place] [phone] Endocrinology, Diabetes, and Metabolism 03/24/22 Jose Cruz Tejada MD [address] [place] [address] Assigned Pulmonology Provider 11/26/22 12/02/22 Deepika Lundy MD [address] [place] [phone] Assigned Pulmonology Provider 12/03/22 03/31/23 Jose Cruz Tejada MD [address] [place] [address] Assigned Pulmonology Provider 04/01/23 12/20/23 Deepika Lundy MD [address] [place] [address] Assigned Pulmonology Provider 12/21/23 Consuelo Benson APRN SERVICE TECHNICIAN [address] [place] [address] Assigned PCP 12/21/23 03/21/24 Regina Remy MD [address] [place] [address] Assigned PCP 03/22/24 01/19/25 Deepika Lundy MD [address] [place] [address] Critical Care 10/09/24 Consuelo Benson APRN SERVICE TECHNICIAN [address] [place], [place] [phone] Assigned PCP 01/20/25 06/21/25 Brigitte Harmon APRN SERVICE TECHNICIAN [address] [place], [place] [address] Assigned PCP 06/22/25 documented as of this encounter
--- OUTSIDE RECORDS SUMMARY | 2025-06-30 17:54 | XMS_ITS | Encounter Summary ---
Author Organization [facility] Address [address] [place] [address]. [place] [address] Care Team Providers Care [place] Name Role Phone Rivka Henning PharmD Unavailable [phone] Kemal Snatana MD Unavailable [phone] Brigitte Harmon APRN INVESTMENT BANKING MANAGER Primary Care Provider Deepika Lundy MD Unavailable Deepika Lundy MD Unavailable Consuelo Benson APRN INVESTMENT BANKING MANAGER Unavailable [phone] Brigitte Harmon APRN INVESTMENT BANKING MANAGER Unavailable [phone] Encounter Details Date Type Department Care Team (Late st Contact Info) Description 06/20/2025 Results Follow-Up [facility] [address] [address] Deepika Lundy MD [address] [place] [id number] Subj: Message about your results Social History Tobacco Use Types Packs/Day Years [...] re latives? Once a week 12/01/2023 Attends Faith Services Not on file 11/30 Active Member of Clubs or Organizations Not on f ile 12/01/2023 Attends Club or Organization Meetings Not on mckayla e 12/01/2023 Marital Status Not on file 12/01/2023 PHQ-2 Answer Date Recorded PHQ-2 Score 0 06/19/2025 [facility]ational Stress Questionnaire Answer Date [...] in an abandoned building, in an overnight half-way, or couch-surfing.) No 12/01/2023 Are you worried [...] st Contact Info) Description 07/16/2025 2:30 PM VEGETABLE WASHING MACHINE OPERATOR Virtual Visit [facility] [address] [place] [address] Deepika Lundy MD [address] [place] [address] [address] [place] [address] documented as of this encounter Visit Diagnoses Not on filedocumented in this encounter Additional Health Concerns Assessment Noted Time PHQ-9 Depression Total Score: 2 06/19/20 25 9:45 AM VEGETABLE WASHING MACHINE OPERATOR documented as of this encounter Care Teams [place] Relationship Specialty Start Date End Date Brigitte Harmon APRN INVESTMENT BANKING MANAGER [address] [facility] [address] [place], [place] [id number] PCP - General 12/01/23 Rivka Henning, DeloresD Pharmacist Pharmacist 05/08/19 Kemal Santana MD [address] [place] [address] Endocrinology, Diabetes, and Metabolism 03/24/22 Deepika Lundy MD [address] [place] [address] Assigned Pulmonology Provider 12/21/23 Deepika Lundy MD [address] [place] [id number] Critical Care 10/09/24 Consuelo Benson APRN INVESTMENT BANKING MANAGER [address] [place] [id number] Assigned PCP 01/20/25 06/21/25 Brigitte Harmon APRN INVESTMENT BANKING MANAGER [address] [place] [phone] Assigned PCP 06/22/25 documented as of this encounter
--- OUTSIDE RECORDS SUMMARY | 2025-06-30 17:54 | XMS_ITS | Clinical Summary ---
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 High Risk? No 8 3:22 PM [facility] LMP/Menopause Date 1996 8 3:22 PM [facility] Abnormal Bleeding No 8 3:22 PM [facility] Patient Status partial hysterectomy 8 3:22 PM [facility] Control/Hormone s None 8 3:22 PM [facility] Previous Normal 5 years ago 07/10/20 1 8 3:22 PM [facility] Previous Abnormal? none 8 3:22 PM [facility] Cervical Appearance normal 8 3:22 PM [facility] Specimen from genital system (specimen) CERVIX UTERI STRUCTURE / Unknown 07/03/2018 4:00 PM [facility] 07/04/2018 9:24 AM [facility] us Brigitte Harmon APRN [facility] JIE AP Final Res ult [facility] [address] [place] [address], [facility] [address] [place] [address] * HPV High Risk Types DNA Cervical (07/03/2018 4:00 PM R[facility] DRUM [facility]ER) HPV Source Sure[facility] 07/04/2018 11:53 AM [facility] HPV16 DNA Negative NEG 07/04/2018 11:53 AM [facility] HPV18 DNA Negative NEG 07/04/2018 11:53 AM [facility] Other HR HPV Negative NEG 07/04/2018 11:53 AM [facility] FINAL DIAGNOSIS SEE NOTES 8 11:53 AM [facility] Comment: This patient's sample is negative for HPV DNA. This test was developed and its performance characteristics determined by the [facility]. It has not been cleared or approved by the FDA. The laboratory is regulated under CLIA as qualified to perform high-complexity testing. This test is used for clinical purposes. It should not be regarded as investigational or for research. (Note) METHODOLOGY: The Manish miller 4800 system uses automated extraction, simultaneous amplification of HPV (L1 region) and beta-globin, followed by real time detection of fluorescent labeled HPV and beta globin using specific oligonucleotide probes . The test specifically identifies types HPV 16 DNA and HPV 18 DNA while concurrently detecting the rest of the high risk types (31, 33, 35, 39, 45, 51, 52, 56, 58, 59, 66 or 68). COMMENTS: This test is not intended for use as a screening device for women under age 30 with normal cervical cytology. Results should be correlated with cytologic and histologic findings. Close clinical followup is recommended. Specimen Description Cervical Cells 07/04/2018 11:53 AM [facility] Comment: PERFORMED AT [address] [address] Specimen from genital system (specimen) 07/03/2018 4:00 PM [facility] 07/04/2018 10:51 PM [facility] us Brigitte Harmon APRN [facility] - BLOOD ORDERABLES Fi nal Result [facility] [address] [facility] [address] [place] [address] * Hepatitis C antibody (10/18/2017 2:36 PM CDT) Hepatitis C Antibody Negative Negative 10/19/2017 8:18 AM CDT [facility] Blood specimen (specimen) Venipuncture / Unknown 10/18/2017 2:36 PM CDT 10/18/2017 5:32 PM CDT [facility] - BLOOD ORDERABLES Final Res ult [facility] [address] [place] [address], [place] [facility] [address] [place] [address] * MA Screening Digital Bilateral (12/27/2016 2:59 PM CDT) Anatomical Region Laterality Modality Breast Bilateral Other Narrative 12/27/2016 4:57 PM CDT BILATERAL FULL FIELD DIGITAL SCREENING MAMMOGRAM Performed on: 12/27/16 Compared to: 05/19/2015 MAMMO DIAGNOSTIC WITH US BREAST RIGHT, and 05/05/2015 MAMMO SCREENING 2D BILATERAL Findings: The breasts are almost entirely fatty. There is no radiographic evidence of malignancy. This study was evaluated with the assistance of Computer-Aided Detection. Continue routine screening mammogram as recommended. ACR BI-RADS Category 1: Negative Procedure Note Prabha Hahn MD - 01/04/2021 BILATERAL FULL FIELD DIGITAL SCREENING MAMMOGRAM Performed on: 12/27/16 Compared to: 05/19/2015 MAMMO DIAGNOSTIC WITH US BREAST RIGHT, and05/05/2015 MAMMO SCREENING 2D BILATERAL Findings: The breasts are almost entirely fatty. There is no radiographicevidence of malignancy. This study was evaluated with the assistance ofComputer-Aided Detection. Continue routine screening mammogram asrecommended. ACR BI-RADS Category 1: Negative Barbie Garcia PA-C IMG MAMMOGRAPHY ORDERABLES Final Result from Last 3 Months or Most Recently Relevant to Health Maintenance Insurance [facility] Member Subscriber Plan / Payer (Ef fective 2022-Present) Name:Viktoria Pennington Relation to Subscriber:Self Name:Viktoria Pennington Payer ID:[id number] (NAIC) Type:Indemnity Address: [place] [id number] [facility] * Guarantor: Viktoria Pennington Account Type Relation to Patient Date of Phone Billing Address Medication Therapy Self 1960 [address] [place] [address] Care Teams Fiber Analyst Relationship Specialty Start Date End Date Brigitte Harmon APRN [facility] [address] [facility] [address] [facility] [address] [place], [place] [phone] PCP - General 12/01/23 Rivka Henning, DeloresD Pharmacist Pharmacist 05/08/19 Kemal Santana MD [address] [place], [place] [phone] Endocrinology, Diabetes, and Metabolism 03/24/22 Deepika Lundy MD [address] [place] [address] Assigned Pulmonology Provider 12/21/23 Deepika Lundy MD [address] [facility] [address] [place] [address] Critical Care 10/09/24 Brigitte Harmon APRN [facility] [address] [facility] [address] [place], [place] [phone] Assigned PCP 06/22/25
--- OUTSIDE RECORDS SUMMARY | 2025-06-30 17:54 | XMS_ITS | Encounter Summary ---
Author Organization [place] Address [address] [place] [address] Care Team Providers Care Window Clerk Name Role Phone Brigitte Harmon APRN, CNP Primary Care Provider [phone] Rivka Henning PharmD Unavailable [phone] Deepika Lundy MD Unavailable Brigitte Harmon APRN TESTER EQUIPMENT Unavailable +-3 Catalina Bain PA-C Unavailable Unavailable Kemal Santana MD Unavailable [phone] Jose Cruz Tejada MD Unavailable Deepika Lundy MD Unavailable Jose Cruz Tejada MD Unavailable Regina Remy MD Primary Care Provider [phone] Brigitte Harmon APRN, CNP Primary Care Provider [phone] Deepika Lundy MD Unavailable Consuelo Benson APRN, CNP Unavailable [phone] Regina Remy MD Unavailable [phone] Deepika Lundy MD Unavailable Consuelo Benson APRN TESTER EQUIPMENT Unavailable [phone] Brigitte Harmon APRN, CNP Unavailable +-3 Encounter Details Date Type Department Care Team (Late st Contact Info) Description 06/07/2022 MyC Medical Advice [facility] [address] [facility] [address] [place] [address] Deepika Lundy MD [address] [place] [address] Social History Tobacco Use Types Packs/Day Years Used Date Smoking Tobacco: Former Cigarettes 1 30 0 08/31/1979 - 08/31/2009 Smokeless Tobacco: Never Alcohol Use Standard Drinks/Week Comments No 0 (1 standard drink = 0.6 oz pur e alcohol) PHQ-2 Answer Date Recorded PHQ-2 Score 1 05/27/2022 Comments No Sex and Gender Information Value Date Recorded Sex Assigned at Not on file Legal Sex Female 11:54 AM CDT Gender Identity Not on file Sexual Orientation Not on file documented as of this encounter Plan of Treatment Upcoming Encounters Date Type Department Care Team (Late Contact Info) Description 07/16/2025 2:30 PM SKINNER PELTS Virtual Visit [facility] [address] [facility] [address] [place] [address] Deepika Lundy MD [address] [place] [address] documented as of this encounter Visit Diagnoses Not on filedocumented in this encounter Additional Health Concerns Assessment Noted Time PHQ-9 Depression Total Score: 7 05/27/20 22 10:47 AM CDT documented as of this encounter Care Teams Window Clerk Relationship Specialty Start Date End Date Brigitte Harmon APRN TESTER EQUIPMENT [address] [place] [address] DAVIS ALEJANDRA [address] PCP - General 09/25/17 07/19/23 Regina Remy MD [address] [place] [address] PCP - General Student in organized health care education/training program 07/20/23 11/30/23 Brigitte Harmon APRN TESTER EQUIPMENT [address] [place], [place] [phone] PCP - General 12/01/23 Rivka Henning, DeloresD [address] [facility] [address] Pharmacist Pharmacist 05/08/19 Deepika Lundy MD [address] [facility] [address] [place] [address] Assigned Pulmonology Provider 02/12/21 11/25/22 Brigitte Harmon APRN TESTER EQUIPMENT [address] [place] [address] Assigned PCP 01/13/21 12/20/23 Catalina Bain PA-C XXX [place] LICENSE /INACTIVE SINCE JUL 2011 XXX Assigned Surgical Provider 02/12/21 09/23/22 Kemal Santana MD [address] [place] [address] Endocrinology, Diabetes, and Metabolism 03/24/22 Jose Cruz Tejada MD [address] [place] [address] Assigned Pulmonology Provider 11/26/22 12/02/22 Deepika Lundy MD [address] [facility] [address] [place] [address] Assigned Pulmonology Provider 12/03/22 03/31/23 Jose Cruz Tejada MD [address] [place] [address] Assigned Pulmonology Provider 04/01/23 12/20/23 Deepika Lundy MD [address] [place] [address] Assigned Pulmonology Provider 12/21/23 Consuelo Benson APRN TESTER EQUIPMENT [address] [place], [place] [phone] Assigned PCP 12/21/23 03/21/24 Regina Remy MD [address] [place] [address] Assigned PCP 03/22/24 01/19/25 Deepika Lundy MD [address] [place] [address] Critical Care 10/09/24 Consuelo Benson APRN TESTER EQUIPMENT [address] [place] [address] Assigned PCP 01/20/25 06/21/25 Brigitte Harmon APRN TESTER EQUIPMENT [address] [place] [phone] Assigned PCP 06/22/25 documented as of this encounter
--- OUTSIDE RECORDS SUMMARY | 2025-06-30 17:54 | XMS_ITS | Encounter Summary ---
Author Organization [place] Address [address] [place] [address] Care Team Providers Care Stock Trader Name Role Phone Brigitte Harmon APRN, CNP Primary Care Provider [phone] Rivka Henning PharmD Unavailable [phone] Deepika Lundy MD Unavailable Brigitte Harmon APRN MARKET RESEARCH EXECUTIVE Unavailable +-3 Catalina Bain PA-C Unavailable Unavailable Kemal Santana MD Unavailable [phone] Jose Cruz Tejada MD Unavailable Deepika Lundy MD Unavailable Jose Cruz Tejada MD Unavailable Regina Remy MD Primary Care Provider [phone] Brigitte Harmon APRN, CNP Primary Care Provider [phone] Deepika Lundy MD Unavailable Consuelo Benson APRN, CNP Unavailable [phone] Regina Remy MD Unavailable [phone] Deepika Lundy MD Unavailable Consuelo Benson APRN MARKET RESEARCH EXECUTIVE Unavailable [phone] Brigitte Harmon APRN, CNP Unavailable +-3 Encounter Details Date Type Department Care Team (Late st Contact Info) Description 03/31/2022 MyC Medical Advice [facility] [address] [phone] Whitley Wei, RN Social History Tobacco Use Types Packs/Day Years [...] Exposure Response Date Recorded In the last 10 days, have yo u been in contact with someone who was confirmed or suspected to have Coronavirus/COVID-19? No / Unsure 03/17/2022 7:27 AM CDT documented as of this encounter Plan of Treatment Upcoming Encounters Date Type Department Care Team (Late st Contact Info) Description 07/16/2025 2:30 PM BUNG REMOVER Virtual Visit [facility] [address] [place] [address] Deepika Lundy MD [address] [place] [address] documented as of this encounter Visit Diagnoses Not on filedocumented in this encounter Additional Health Concerns Assessment Noted Time PHQ-9 Depression Total Score: 4 12/25/19 21 12:59 AM CDT documented as of this encounter Care Teams Stock Trader Relationship Specialty Start Date End Date Brigitte Harmon APRN MARKET RESEARCH EXECUTIVE [address] [facility] [address] [place] [phone] PCP - General 09/25/17 07/19/23 Regina Remy MD [address] [place] [address] PCP - General Student in organized health care education/training program 07/20/23 11/30/23 Brigitte Harmon APRN MARKET RESEARCH EXECUTIVE [address] [place] [address] PCP - General 12/01/23 Rivka Henning, DeloresD [address] [facility] [place] [address] Pharmacist Pharmacist 05/08/19 Deepika Lundy MD [address] [facility] [address] [place], [place] [phone] Assigned Pulmonology Provider 02/12/21 11/25/22 Brigitte Harmon APRN MARKET RESEARCH EXECUTIVE [address] [place] [address] Assigned PCP 01/13/21 12/20/23 Catalina Bain PA-C XXX [place] LICENSE /INACTIVE SINCE JUL 2011 XXX Assigned Surgical Provider 02/12/21 09/23/22 Kemal Santana MD [address] [place] [address] Endocrinology, Diabetes, and Metabolism 03/24/22 Jose Cruz Tejada MD [address] [place] [address] Assigned Pulmonology Provider 11/26/22 12/02/22 Deepika Lundy MD [address] [facility] [address] [place] [address] Assigned Pulmonology Provider 12/03/22 03/31/23 Jose Cruz Tejada MD [address] [place] [address] Assigned Pulmonology Provider 04/01/23 12/20/23 Deepika Lundy MD [address] [place] [address] Assigned Pulmonology Provider 12/21/23 Consuelo Benson APRN MARKET RESEARCH EXECUTIVE [address] [phone] Assigned PCP 12/21/23 03/21/24 Regina Remy MD [address] [place], [place] [address] Assigned PCP 03/22/24 01/19/25 Deepika Lundy MD [address] [place] [address] Critical Care 10/09/24 Consuelo Benson APRN MARKET RESEARCH EXECUTIVE [address] [phone] Assigned PCP 01/20/25 06/21/25 Brigitte Harmon APRN MARKET RESEARCH EXECUTIVE [address] [phone] Assigned PCP 06/22/25 documented as of this encounter
--- OUTSIDE RECORDS SUMMARY | 2025-06-30 17:54 | XMS_ITS | Encounter Summary ---
Author Organization [place] Address [address] [place] [address] Care Team Providers Care Senior Electrical Project Manager Name Role Phone Brigitte Harmon APRN MOLECULAR MODELER Primary Care Provider [phone] Rivka Henning PharmD Unavailable [phone] Deepika Lundy MD Unavailable Brigitte Harmon APRN MOLECULAR MODELER Unavailable [phone] Kemal Santana MD Unavailable [phone] Jose Cruz Tejada MD Unavailable Deepika Lundy MD Unavailable Jose Cruz Tejada MD Unavailable Regina Remy MD Primary Care Provider [phone] Brigitte Harmon APRN MOLECULAR MODELER Primary Care Provider [phone] Deepika Lundy MD Unavailable Consuelo Benson APRN MOLECULAR MODELER Unavailable [phone] Regina Remy MD Unavailable [phone] Deepika Lundy MD Unavailable Consuelo Benson APRN MOLECULAR MODELER Unavailable [phone] Brigitte Harmon APRN MOLECULAR MODELER Unavailable [phone] Reason for Visit * Reason Onset Date Comments Refill Request 10/04/2022 Encounter Details Date Type Department Care Team (Late Contact Info) Description 10/04/2022 MyC Refill [facility] [address] [phone] Jose Cruz Tejada MD [address] [place] [address] Refill Request Social History Tobacco Use Types [...] st Contact Info) Description 07/16/2025 2:30 PM CHINESE MEDICINE PRACTITIONER Virtual Visit [facility] [address] [address] Deepika Lundy MD [address] [place] [address] documented as of this encounter Visit Diagnoses Diagnosis Sarcoidosis documented in this encounter Additional Health Concerns Assessment Noted Time PHQ-9 Depression Total Score: 7 05/27/20 22 10:47 AM CDT documented as of this encounter Care Teams Senior Electrical Project Manager Relationship Specialty Start Date End Date Brigitte Harmon APRN MOLECULAR MODELER [address] [place] [address] PCP - General 09/25/17 07/19/23 Regina Remy MD [address] [place] [phone] PCP - General Student in organized health care education/training program 07/20/23 11/30/23 Brigitte Harmon APRN MOLECULAR MODELER [address] [place] [address] PCP - General 12/01/23 Rivka Henning, DeloresD [address] [facility] [address] Pharmacist Pharmacist 05/08/19 Deepika Lundy MD [address] [place] [address] [address] [place] [address] Assigned Pulmonology Provider 02/12/21 11/25/22 Brigitte Harmon APRN MOLECULAR MODELER [address] [facility] 100 [place] [address] Assigned PCP 01/13/21 12/20/23 [place] [address] [place] [address] Endocrinology, Diabetes, and Metabolism 03/24/22 Jose Cruz Tejada MD [address] [place] [address] Assigned Pulmonology Provider 11/26/22 12/02/22 Deepika Lundy MD [address] [facility] [address] [place] [address] Assigned Pulmonology Provider 12/03/22 03/31/23 Jose Cruz Tejada MD [address] [place] [address] Assigned Pulmonology Provider 04/01/23 12/20/23 Deepika Lundy MD [address] [place] [address] Assigned Pulmonology Provider 12/21/23 Consuelo Benson APRN MOLECULAR MODELER [address] [place] [address] Assigned PCP 12/21/23 03/21/24 Regina Remy MD [address] [place] [phone] Assigned PCP 03/22/24 01/19/25 Deepika Lundy MD [address] [place] [address] Critical Care 10/09/24 Consuelo Benson APRN MOLECULAR MODELER [address] [place] [address] Assigned PCP 01/20/25 06/21/25 Brigitte Harmon APRN MOLECULAR MODELER [address] [place] [phone] Assigned PCP 06/22/25 documented as of this encounter
--- OUTSIDE RECORDS SUMMARY | 2025-06-30 17:54 | XMS_ITS | Encounter Summary ---
Author Organization [place] Address [address] [place] [address] Care Team Providers Care Dental Instrument Maker Name Role Phone Brigitte Harmon APRN HOSPITAL UNIT CLERK Primary Care Provider [phone] Rivka Henning PharmD Unavailable [phone] Deepika Lundy MD Unavailable Brigitte Harmon APRN HOSPITAL UNIT CLERK Unavailable [phone] Kemal Santana MD Unavailable [phone] Jose Cruz Tejada MD Unavailable Deepika Lundy MD Unavailable Jose Cruz Tejada MD Unavailable Regina Remy MD Primary Care Provider [phone] Brigitte Harmon APRN HOSPITAL UNIT CLERK Primary Care Provider [phone] Deepika Lundy MD Unavailable Consuelo Benson APRN HOSPITAL UNIT CLERK Unavailable [phone] Regina Remy MD Unavailable [phone] Deepika Lundy MD Unavailable Consuelo Benson APRN HOSPITAL UNIT CLERK Unavailable [phone] Brigitte Harmon APRN HOSPITAL UNIT CLERK Unavailable [phone] Encounter Details Date Type Department Care Team (Late st Contact Info) Description 10/04/2022 MyC Medical Advice [facility] [address] [phone] Jose Cruz Tejada MD [address] [place] [address] Social History Tobacco Use Types Packs/Day Years [...] st Contact Info) Description 07/16/2025 2:30 PM DECKHAND SPONGE BOAT Virtual Visit [facility] [address] [address] Deepika Lundy MD [address] [place] [address] documented as of this encounter Visit Diagnoses Not on filedocumented in this encounter Additional Health Concerns Assessment Noted Time PHQ-9 Depression Total Score: 7 05/27/20 22 10:47 AM CDT documented as of this encounter Care Teams Dental Instrument Maker Relationship Specialty Start Date End Date Brigitte Harmon APRN HOSPITAL UNIT CLERK [address] [facility] [place] [address] PCP - General 09/25/17 07/19/23 Regina Remy MD [address] [place] [address] PCP - General Student in organized health care education/training program 07/20/23 11/30/23 Brigitte Harmon APRN HOSPITAL UNIT CLERK [address] [place] [address] PCP - General 12/01/23 Rivka Henning, PharmD [address] [facility] [place] [address] Pharmacist Pharmacist 05/08/19 Deepika Lundy MD [address] [place] [address] [address] [place] [address] Assigned Pulmonology Provider 02/12/21 11/25/22 Brigitte Harmon APRN HOSPITAL UNIT CLERK [address] [facility] 100 [place] [address] Assigned PCP 01/13/21 12/20/23 Kemal Santana MD [address] [place] [address] Endocrinology, Diabetes, and Metabolism 03/24/22 Jose Cruz Tejada MD [address] [place] [address] Assigned Pulmonology Provider 11/26/22 12/02/22 Deepika Lundy MD [address] [facility] [address] [place] [address] Assigned Pulmonology Provider 12/03/22 03/31/23 Jose Cruz Tejada MD 9 [place] [address] Assigned Pulmonology Provider 04/01/23 12/20/23 Deepika Lundy MD [address] [place] [address] Assigned Pulmonology Provider 12/21/23 Consuelo Benson APRN HOSPITAL UNIT CLERK [address] [place] [address] Assigned PCP 12/21/23 03/21/24 Regina Remy MD [address] [place] [address] Assigned PCP 03/22/24 01/19/25 Deepika Lundy MD [address] [place] [address] Critical Care 10/09/24 Consuelo Benson APRN HOSPITAL UNIT CLERK [address] [place] [address] Assigned PCP 01/20/25 06/21/25 Brigitte Harmon APRN HOSPITAL UNIT CLERK [address] [place] [phone] Assigned PCP 06/22/25 documented as of this encounter
--- OUTSIDE RECORDS SUMMARY | 2025-06-30 17:54 | XMS_ITS | Encounter Summary ---
Author Organization [place] Address [address] [place] [address] Care Team Providers Care Him Assistant Name Role Phone Juevncio Rivka PharmD Unavailable [phone] Kemal Santana MD Unavailable [phone] Brigitte Harmon APRN BED LABORER Primary Care Provider [phone] Deepika Lundy MD Unavailable Deepika Lundy MD Unavailable Consuelo Benson APRN BED LABORER Unavailable [phone] Brigitte Harmon APRN BED LABORER Unavailable [phone] Encounter Details Date Type Department Care Team (Late st Contact Info) Description 05/08/2025 [facility] [address] [address] Arabella Rico Social History Tobacco Use Types Packs/Day Years [...] re latives? Once a week 12/01/2023 Attends Tenriism Services Not on file 11/30 Active Member of Clubs or Organizations Not on f ile 12/01/2023 Attends Club or Organization Meetings Not on mckayla e 12/01/2023 Marital Status Not on file 12/01/2023 PHQ-2 Answer Date Recorded PHQ-2 Score 6 11/29/2024 [facility] Health - Occupational Stress Questionnaire Answer Date [...] in an abandoned building, in an overnight fci, or couch-surfing.) No 12/01/2023 Are you worried [...] st Contact Info) Description 07/16/2025 2:30 PM ADVERTISING SALES EXECUTIVE Virtual Visit [facility] [address] [place] [address] Deepika Lundy MD [address] [place] [address] documented as of this encounter Visit Diagnoses Not on filedocumented in this encounter Additional Health Concerns Assessment Noted Time PHQ-9 Depression Total Score: 15 025 11:58 AM CDT documented as of this encounter Care Teams Him Assistant Relationship Specialty Start Date End Date Brigitte Harmon APRN BED LABORER [address] [place] [id number] PCP - General 12/01/23 Rivka Henning, DeloresD Pharmacist Pharmacist 05/08/19 Kemal Santana MD [address]45 [place] [address] Endocrinology, Diabetes, and Metabolism 03/24/22 Deepika Lundy MD [address] [place] [address] Assigned Pulmonology Provider 12/21/23 Deepika Lundy MD [address] [place] [address] Critical Care 10/09/24 Consuelo Benson APRN BED LABORER [address] [place], [place] [phone] Assigned PCP 01/20/25 06/21/25 Brigitte Harmon APRN BED LABORER [address] [facility] 100 [place] [address] Assigned PCP 06/22/25 documented as of this encounter
--- OUTSIDE RECORDS SUMMARY | 2025-06-30 17:54 | XMS_ITS | Encounter Summary ---
Author Organization [place] Address [address] [place] [address] Care Team Providers Care Traveling Clerk Name Role Phone Brigitte Harmon APRN, CNP Primary Care Provider [phone] Rivka Henning PharmD Unavailable [phone] Deepika Lundy MD Unavailable Brigitte Harmon APRN SEARCH PLANNER Unavailable +-[phone] Catalina Bain PA-C Unavailable Unavailable Kemal Santana MD Unavailable [phone] Jose Cruz Tejada MD Unavailable Deepika Lundy MD Unavailable Jose Cruz Tejada MD Unavailable Regina Remy MD Primary Care Provider [phone] Brigitte Harmon APRN, CNP Primary Care Provider [phone] Deepika Lundy MD Unavailable Consuelo Benson APRN, CNP Unavailable [phone] Regina Remy MD Unavailable [phone] Deepika Lundy MD Unavailable Consuelo Benson APRN SEARCH PLANNER Unavailable [phone] Brigitte Harmon APRN, CNP Unavailable +[phone] Encounter Details Date Type Department Care Team (Late st Contact Info) Description 01/24/2022 MyC Medical Advice [facility] [address] [facility] [address] [place] [address] Deepika Lundy MD [address] [place] [address] Social History Tobacco Use Types [...] (Late Contact Info) Description 07/16/2025 2:30 PM BODY RECALL INSTRUCTOR Virtual Visit [facility] [address] [facility] [address] [place] [address] Deepika Lundy MD [address] [place] [address] documented as of this encounter Visit Diagnoses Not on filedocumented in this encounter Additional Health Concerns Assessment Noted Time PHQ-9 Depression Total Score: 4 12/25/19 21 12:59 AM CDT documented as of this encounter Care Teams Traveling Clerk Relationship Specialty Start Date End Date Brigitte Harmon APRN SEARCH PLANNER [address] [place] [address] DAVIS ALEJANDRA [address] PCP - General 09/25/17 07/19/23 Regina Remy MD [address] [place] [address] PCP - General Student in organized health care education/training program 07/20/23 11/30/23 Brigitte Harmon APRN SEARCH PLANNER [address] [place], [place] [phone] PCP - General 12/01/23 Rivka Henning, DeloresD [address] [facility] [place] [address] Pharmacist Pharmacist 05/08/19 Deepika Lundy MD [address] [facility] [address] [place] [address] Assigned Pulmonology Provider 02/12/21 11/25/22 Brigitte Harmon APRN SEARCH PLANNER [address] [place] [address] Assigned PCP 01/13/21 12/20/23 Catalina Bain PA-C XXX [place] LICENSE /INACTIVE SINCE JUL 2011 XXX Assigned Surgical Provider 02/12/21 09/23/22 Kemal Santana MD [address]45 [place] [address] Endocrinology, Diabetes, and Metabolism 03/24/22 Jose Cruz Tejada MD [address] [place] [address] Assigned Pulmonology Provider 11/26/22 12/02/22 Deepika Lundy MD [address] [facility] [address] [place] [address] Assigned Pulmonology Provider 12/03/22 03/31/23 Jose Cruz Tejada MD 909 [place] [address] Assigned Pulmonology Provider 04/01/23 12/20/23 Deepika Lundy MD [address] [place] [address] Assigned Pulmonology Provider 12/21/23 Consuelo Benson APRN SEARCH PLANNER [address] [place], [place] [phone] Assigned PCP 12/21/23 03/21/24 Regina Remy MD [address] [place] [address] Assigned PCP 03/22/24 01/19/25 Deepika Lundy MD [address] [place] [address] Critical Care 10/09/24 Conseulo Benson APRN SEARCH PLANNER [address] [place] [address] Assigned PCP 01/20/25 06/21/25 Brigitte Harmon APRN SEARCH PLANNER [address] [place] [phone] Assigned PCP 06/22/25 documented as of this encounter
--- OUTSIDE RECORDS SUMMARY | 2025-06-30 17:55 | XMS_ITS | Encounter Summary ---
Author Organization [facility] Address [address] [place] [address]. [place] [address] Care Team Providers Care Director Of Maternity Services Name Role Phone Juvencio Rivka PharmD Unavailable [phone] Kemal Santana MD Unavailable [phone] Brigitte Harmon APRN HUMAN FACTORS ADVISOR LEAD Primary Care Provider [phone] Deepika Lundy MD Unavailable Deepika Lundy MD Unavailable Consuelo Benson APRN HUMAN FACTORS ADVISOR LEAD Unavailable [phone] Reason for Visit * Reason Comments Medication Refill Encounter Details Date Type Department Care Team (Late st Contact Info) Description 05/31/2025 Refill [facility] [address] [facility] 100 [place] [phone] Consuelo Benson APRN [facility] [address] [place], [place] [phone] Medication Refill Social History Tobacco Use Types [...] re latives? Once a week 12/01/2023 Attends Sikh Services Not on file 11/30 Active Member of Clubs or Organizations Not on f ile 12/01/2023 Attends Club or Organization Meetings Not on mckayla e 12/01/2023 Marital Status Not on file 12/01/2023 PHQ-2 Answer Date Recorded PHQ-2 Score 6 11/29/2024 [facility] - Occupational Stress Questionnaire Answer Date Recorded [...] in an overnight senior living, or couch-surfing.) No 12/01/2023 Are you worried [...] encounter Miscellaneous Notes * Telephone Encounter - Shanda Obrien MA - 06/02/2025 3:09 PM CST Spoke with patient and she states that she has been taking the amlodipine daily. I asked her if another provider could have renewed it since she should of been out by now. Patient states that no she has not had any other provider besides the providers she has seen here fill it. I did have her grab her medications to make sure she had that one, and she did find the bottle, and only said she had a weeks worth left. I informed her that I would send refill request to Brigitte. Patient does have upcoming appointment on 06/19/25 with Brigitte Harmon. Shanda Guillen CMA on June 02, 2025 at 3:16 PM ER HELPER documented in this encounter Plan of Treatment Upcoming Encounters Date Type Department Care Team (Late st Contact Info) Description 07/16/2025 2:30 PM WELDER HELPER Virtual Visit [facility] [address] [address] Deepika Lundy MD [address] [place] [address] [address] [place] [address] documented as of this encounter Visit Diagnoses Diagnosis Essential hypertension, benign documented in this encounter Additional Health Concerns Assessment Noted Time PHQ-9 Depression Total Score: 15 025 11:58 AM CDT documented as of this encounter Care Teams Director Of Maternity Services Relationship Specialty Start Date End Date Brigitte Harmon APRN HUMAN FACTORS ADVISOR LEAD [address] [facility] 100 [place], [place] [phone] PCP - General 12/01/23 Rivka Henning, [place] Pharmacist Pharmacist 05/08/19 Kemal Santana MD [address] [place] [address] Endocrinology, Diabetes, and Metabolism 03/24/22 Deepika Lundy MD [address] [place] [address] Assigned Pulmonology Provider 12/21/23 Deepika Lundy MD [address] [facility] [place] [address] Critical Care 10/09/24 Consuelo Benson APRN HUMAN FACTORS ADVISOR LEAD [address] [place] [address] Assigned PCP 01/20/25 06/21/25 documented as of this encounter
--- OUTSIDE RECORDS SUMMARY | 2025-06-30 17:55 | XMS_ITS | Encounter Summary ---
Author Organization [place] Address [address] [place] [address]. [place] [address] Care Team Providers Care Tax Appraiser Name Role Phone Juvencio Rivka PharmD Unavailable [phone] Kemal Santana MD Unavailable [phone] Brigitte Harmon ROLL PANNER RECEIVING MANAGER Primary Care Provider [phone] Deepika Lundy MD Unavailable Regina Remy MD Unavailable Deepika Lundy MD Unavailable Consuelo Benson APRN RECEIVING MANAGER Unavailable [phone] Brigitte Harmon APRN RECEIVING MANAGER Unavailable [phone] Reason for Visit * Reason Onset Date Comments Appointment 09/11/2024 Orders 09/11/2024 Encounter Details Date Type Department Care Team (Late st Contact Info) Description 09/11/2024 Telephone [facility] [address] [place] [address] Deepika Lundy MD [address] [place] [address] [address] [place] [address] Appointment; Orders Social History Tobacco Use Types Packs/Day Years [...] re latives? Once a week 12/01/2023 Attends Episcopalian Services Not on file 11/30 Active Member of Clubs or Organizations Not on f ile 12/01/2023 Attends Club or Organization Meetings Not on mckayla e 12/01/2023 Marital Status Not on file 12/01/2023 PHQ-2 Answer Date Recorded PHQ-2 Score 1 07/02/2024 [facility]at ional Health - Occupational Stress [...] encounter Miscellaneous Notes * Telephone Encounter - Leatha Story CMA - 09/11/2024 3:40 PM COOK ROAST [facility] Call Center Phone Message May a detailed message be left on voicemail: yes Reason for Call: Pt calling to schedule follow-up appt with Dr. Lundy, says she was told she could do a virtual visit some time in September 2024. First available appt with Dr. Lundy is in-person (no virtual options at all) and not until mid- March. Pt is concerned that date is too far off, wondering if she would be able to see one of Dr. Lundy's FOREIGN FOOD SPECIALTY COOK's for sarcoidosis? Pt is also wondering if Dr. Lundy would place new lab orders to check for anemia? Pt feels like sheis likely anemic because all she wants to do each day is sleep. Action Taken: Other: Pulm Travel Screening: Not Applicable ROAST documented in this encounter Plan of Treatment Upcoming Encounters Date Type Department Care Team (Late st Contact Info) Description 07/16/2025 2:30 PM COOK ROAST Virtual Visit [facility] [address] [place] [address] Deepika Lundy MD [address] [place] [address] documented as of this encounter Visit Diagnoses Not on filedocumented in this encounter Additional Health Concerns Assessment Noted Time PHQ-9 Depression Total Score: 4 12/05/19 24 10:29 AM CDT documented as of this encounter Care Teams Tax Appraiser Relationship Specialty Start Date End Date Brigitte Harmon, ROLL PANNER RECEIVING MANAGER [address] [place] [address] PCP - General 12/01/23 Rivka Henning, DeloresD Pharmacist Pharmacist 05/08/19 Kemal Santana MD [address] [place] [id number] Endocrinology, Diabetes, and Metabolism 03/24/22 Deepika Lundy MD [address] [place] [address] Assigned Pulmonology Provider 12/21/23 Regina Remy MD [address] [place] [address] Assigned PCP 03/22/24 01/19/25 Deepika Lundy MD [address] [place] [address] Critical Care 10/09/24 Consuelo Benson APRN RECEIVING MANAGER [address] [place], [place] [phone] Assigned PCP 01/20/25 06/21/25 Brigitte Harmon APRN RECEIVING MANAGER [address] [place], [place] [phone] Assigned PCP 06/22/25 documented as of this encounter
--- OUTSIDE RECORDS SUMMARY | 2025-06-30 17:55 | XMS_ITS | Encounter Summary ---
Author Organization [facility] Address [address] [place] [address] Care Team Providers Care Tool Design Checker Name Role Phone Rivka Henning PharmD Unavailable [phone] Kemal Santana MD Unavailable [phone] Brigitte Harmon APRN ARABIC TEACHER Primary Care Provider Deepika Lundy MD Unavailable Regina Remy MD Unavailable [phone] Deepika Lundy MD Unavailable Consuelo Benson APRN ARABIC TEACHER Unavailable [phone] Brigitte Harmon APRN ARABIC TEACHER Unavailable [phone] Reason for Visit * Reason Onset Date Comments Call Back 10/09/2024 Follow up, sched uled Encounter Details Date Type Department Care Team (Late st Contact Info) Description 10/09/2024 Telephone [facility] [address] [place] [address] Provider, Generic External Data Call Back (Follow up, scheduled) Social History Tobacco Use Types Packs/Day Years [...] re latives? Once a week 12/01/2023 Attends Pentecostal Services Not on file 11/30 Active Member of Clubs or Organizations Not on f ile 12/01/2023 Attends Club or Organization Meetings Not on mckayla e 12/01/2023 Marital Status Not on file 12/01/2023 PHQ-2 Answer Date Recorded PHQ-2 Score 0 10/03/2024 [facility] Health - Occupational Stress Questionnaire Answer [...] in an abandoned building, in an overnight usp, or couch-surfing.) No 12/01/2023 Are you worried [...] encounter Miscellaneous Notes * Telephone Encounter - Yazmin Encarnacion - 10/09/2024 3:06 PM CDT [facility] Phone Message May a detailed message be left on voicemail: yes Reason for Call: Appointment Intake Referring Provider Name: Deepika Lundy MD Diagnosis and/or Symptoms: 12/30/2024- requested follow up date Scheduled 04/29- please review for timeframe, thank you Action Taken: Message routed to[facility] pulm Travel Screening: Not Applicable Date of Service: documented in this encounter Plan of Treatment Upcoming Encounters Date Type Department Care Team (Late st Contact Info) Description 07/16/2025 2:30 PM EXTENSION COURSE COORDINATOR Virtual Visit [facility] [address] [place] [address] [address] [place] [address] Deepika Lundy MD [address] [facility] [address] [place] [address] documented as of this encounter Visit Diagnoses Not on filedocumented in this encounter Additional Health Concerns Assessment Noted Time PHQ-9 Depression Total Score: 4 12/05/19 24 10:29 AM CDT documented as of this encounter Care Teams Tool Design Checker Relationship Specialty Start Date End Date Brigitte Harmon APRN ARABIC TEACHER [address] [facility] [address] [place] [address] PCP - General 12/01/23 Rivka Henning, [place] Pharmacist Pharmacist 05/08/19 Kemal Santana MD 2945 [place] [address] Endocrinology, Diabetes, and Metabolism 03/24/22 Deepika Lundy MD [address] [place] [address] Assigned Pulmonology Provider 12/21/23 Regina Remy MD [address] [place] [address] Assigned PCP 03/22/24 01/19/25 Deepika Lundy MD [address] [place] [address] Critical Care 10/09/24 Consuelo Benson APRN ARABIC TEACHER [address] [place], [place] [phone] Assigned PCP 01/20/25 06/21/25 Brigitte Harmon APRN ARABIC TEACHER [address] [place], [place] [phone] Assigned PCP 06/22/25 documented as of this encounter
--- OUTSIDE RECORDS SUMMARY | 2025-06-30 17:55 | XMS_ITS | Encounter Summary ---
Author Organization [facility] Address [address] [place] [address] Care Team Providers Care Respiratory Care Practitioner Name Role Phone Brigitte Harmon APRN, CNP Primary Care Provider [phone] Rivka Henning PharmD Unavailable [phone] Deepika Lundy MD Unavailable Brigitte Harmon APRN DOCUMENT CONTROL SUPERVISOR Unavailable +-3 Catalina Bain PA-C Unavailable Unavailable Kemal Santana MD Unavailable [phone] Jose Cruz Tejada MD Unavailable Deepika Lundy MD Unavailable Jose Cruz Tejada MD Unavailable Regina Remy MD Primary Care Provider [phone] Brigitte Harmon APRN, CNP Primary Care Provider [phone] Deepika Lundy MD Unavailable Consuelo Benson APRN, CNP Unavailable [phone] Regina Remy MD Unavailable [phone] Deepika Lundy MD Unavailable Consuelo Benson APRN DOCUMENT CONTROL SUPERVISOR Unavailable [phone] Brigitte Harmon APRN, CNP Unavailable +-[phone] Encounter Details Date Type Department Care Team (Late st Contact Info) Description 03/16/2022 MyC Medical Advice Initial Department [address] [place] [address] Misha Abraham Social History Tobacco Use Types Packs/Day Years [...] st Contact Info) Description 07/16/2025 2:30 PM CSR RETAIL Virtual Visit [facility] [address] [address] Deepika Lundy MD [address] [place] [address] documented as of this encounter Visit Diagnoses Not on filedocumented in this encounter Additional Health Concerns Assessment Noted Time PHQ-9 Depression Total Score: 4 12/25/19 21 12:59 AM CDT documented as of this encounter Care Teams Respiratory Care Practitioner Relationship Specialty Start Date End Date Brigitte Harmon APRN DOCUMENT CONTROL SUPERVISOR [address] [place] [address] [place] [address] PCP - General 09/25/17 07/19/23 Regina Remy MD [address] [place] [address] PCP - General Student in organized health care education/training program 07/20/23 11/30/23 Brigitte Harmon INSIDE CONTRACTOR SALES DOCUMENT CONTROL SUPERVISOR [address] [place] [address] PCP - General 12/01/23 Rivka Henning, DeloresD [address] [place] [address] Pharmacist Pharmacist 05/08/19 Deepika Lundy MD [address] [facility] [address] [place] [address] Assigned Pulmonology Provider 02/12/21 11/25/22 Brigitte Harmon APRN DOCUMENT CONTROL SUPERVISOR [address] [facility] 100 [place] [address] Assigned PCP 01/13/21 12/20/23 Catalina Bain PA-C XXX [place] LICENSE /INACTIVE SINCE JUL 2011 XXX Assigned Surgical Provider 02/12/21 09/23/22 Kemal Santana MD [address]45 [place] [address] Endocrinology, Diabetes, and Metabolism 03/24/22 Jose Cruz Tejada MD 909 [place] [address] Assigned Pulmonology Provider 11/26/22 12/02/22 Deepika Lundy MD 16[address] [facility] 111 [place] [address] Assigned Pulmonology Provider 12/03/22 03/31/23 Jose Cruz Tejada MD [address] [place] [address] Assigned Pulmonology Provider 04/01/23 12/20/23 Deepika Lundy MD [address] [place] [address] Assigned Pulmonology Provider 12/21/23 Consuelo Benson APRN DOCUMENT CONTROL SUPERVISOR [address] [place], [place] [phone] Assigned PCP 12/21/23 03/21/24 Regina Remy MD [address] [place] [address] Assigned PCP 03/22/24 01/19/25 Deepika Lundy MD [address] [place] [address] Critical Care 10/09/24 Consuelo Benson APRN DOCUMENT CONTROL SUPERVISOR [address] [address] Assigned PCP 01/20/25 06/21/25 Brigitte Harmon APRN DOCUMENT CONTROL SUPERVISOR [address] [place] [id number] Assigned PCP 06/22/25 documented as of this encounter
--- OUTSIDE RECORDS SUMMARY | 2025-06-30 17:55 | XMS_ITS | Encounter Summary ---
Author Organization [place] Address [address] [place] [address]. [place] [address] Care Team Providers Care Marketing Pr Intern Name Role Phone Rivka Henning PharmD Unavailable [phone] Kemal Santana MD Unavailable [phone] Brigitte Harmon C++ QUANT DEVELOPER CIRCUS LABORER Primary Care Provider Deepika Lundy MD Unavailable Deepika Lundy MD Unavailable Consuelo Benson APRN CIRCUS LABORER Unavailable [phone] Brigitte Harmon APRN CIRCUS LABORER Unavailable [phone] Encounter Details Date Type Department Care Team (Late st Contact Info) Description 05/01/2025 [facility] [address] [place] [address] Deepika Lundy MD [address] [place] [address] [address] [place] [address] Social History Tobacco Use Types [...] re latives? Once a week 12/01/2023 Attends Anglican Services Not on file 11/30 Active Member of Clubs or Organizations Not on f ile 12/01/2023 Attends Club or Organization Meetings Not on mckayla e 12/01/2023 Marital Status Not on file 12/01/2023 PHQ-2 Answer Date Recorded PHQ-2 Score 6 11/29/2024 [facility] - Occupational Stress Questionnaire Answer Date [...] st Contact Info) Description 07/16/2025 2:30 PM BOX BUILDER Virtual Visit [facility] Specialty [facility] [address] [place] [address] Deepika Lundy MD [address] [place] [address] documented as of this encounter Visit Diagnoses Not on filedocumented in this encounter Additional Health Concerns Assessment Noted Time PHQ-9 Depression Total Score: 15 025 11:58 AM CDT documented as of this encounter Care Teams Marketing Pr Intern Relationship Specialty Start Date End Date Brigitte Harmon APRN CIRCUS LABORER [address] [place], [place] [phone] PCP - General 12/01/23 Rivka Henning, PharmD Pharmacist Pharmacist 05/08/19 Kemal Santana MD 2945 [place] [address] Endocrinology, Diabetes, and Metabolism 03/24/22 Deepika Lundy MD [address] [place] [address] Assigned Pulmonology Provider 12/21/23 Deepika Lundy MD [address] [place] [address] Critical Care 10/09/24 Consuelo Benson APRN CIRCUS LABORER [address] [place] [address] Assigned PCP 01/20/25 06/21/25 Brigitte Harmon APRN CIRCUS LABORER [address] [facility] [address] [place] [address] Assigned PCP 06/22/25 documented as of this encounter
--- OUTSIDE RECORDS SUMMARY | 2025-06-30 17:55 | XMS_ITS | Encounter Summary ---
Author Organization [facility] Address [address] [place] [address]. [place] [address] Care Team Providers Care Manager Reporting Name Role Phone Rivka Henning PharmD Unavailable [phone] Kemal Santana MD Unavailable [phone] Brigitte Harmon CHEMISTRY TUTOR MANAGER FIELD INVESTIGATIONS Primary Care Provider [phone] Deepika Lundy MD Unavailable Consuelo Benson APRN MANAGER FIELD INVESTIGATIONS Unavailable [phone] Regina Remy MD Unavailable [phone] Deepika Lundy MD Unavailable Consuelo Benson APRN MANAGER FIELD INVESTIGATIONS Unavailable Brigitte Harmon APRN MANAGER FIELD INVESTIGATIONS Unavailable [phone] Encounter Details Date Type Department Care Team (Late st Contact Info) Description 02/08/[address] [facility] [address] [place] [phone] Felicitas Torre CNA Social History Tobacco Use Types Packs/Day Years [...] re latives? Once a week 12/01/2023 Attends Judaism Services Not on file 11/30 Active Member of Clubs or Organizations Not on f ile 12/01/2023 Attends Club or Organization Meetings Not on mckayla e 12/01/2023 Marital Status Not on file 12/01/2023 PHQ-2 Answer Date Recorded PHQ-2 Score 0 12/05/2023 [facility] - Occupational Stress Questionnaire Answer [...] st Contact Info) Description 07/16/2025 2:30 PM LEADERSHIP PROGRAM INTERNSHIP Virtual Visit [facility] [address] [facility] [address] [place] [address] Deepika Lundy MD [address] [address] [place] [phone] documented as of this encounter Visit Diagnoses Not on filedocumented in this encounter Additional Health Concerns Assessment Noted Time PHQ-9 Depression Total Score: 4 12/05/19 24 10:29 AM CDT documented as of this encounter Care Teams Manager Reporting Relationship Specialty Start Date End Date Brigitte Harmon APRN MANAGER FIELD INVESTIGATIONS [address] [place] [phone] PCP - General 12/01/23 Rivka Henning, PharmD Pharmacist Pharmacist 05/08/19 Kemal Santana MD [address] [place] [address] Endocrinology, Diabetes, and Metabolism 03/24/22 Deepika Lundy MD [address] [place] [address] Assigned Pulmonology Provider 12/21/23 Consuelo Benson APRN MANAGER FIELD INVESTIGATIONS [address] [place] [phone] Assigned PCP 12/21/23 03/21/24 Regina Remy MD [address] [place] [address] Assigned PCP 03/22/24 01/19/25 Deepika Lundy MD [address] [place] [phone] Critical Care 10/09/24 Consuelo Benson APRN MANAGER FIELD INVESTIGATIONS [address] [place], [place] [phone] Assigned PCP 01/20/25 06/21/25 Brigitte Harmon APRN MANAGER FIELD INVESTIGATIONS [address] [place], [place] [phone] Assigned PCP 06/22/25 documented as of this encounter
--- OUTSIDE RECORDS SUMMARY | 2025-06-30 17:55 | XMS_ITS | Encounter Summary ---
Author Organization [facility] Address [address] [place] [address] Care Team Providers Care Army Ranger Name Role Phone Rivka Henning PharmD Unavailable [phone] Kemal Santana MD Unavailable [phone] Brigitte Harmon DIRECTOR PERIOPERATIVE IN HOME BABY SITTER Primary Care Provider Deepika Lundy MD Unavailable Regina Remy MD Unavailable [phone] Deepika Lundy MD Unavailable Consuelo Benson APRN IN HOME BABY SITTER Unavailable [phone] Brigitte Harmon APRN IN HOME BABY SITTER Unavailable [phone] Encounter Details Date Type Department Care Team (Late st Contact Info) Description 08/15/2024 [facility] Medical Advice [facility] [address] [address] Whitley Wei, RN Social History Tobacco Use [...] re latives? Once a week 12/01/2023 Attends Buddhist Services Not on file 11/30 Active Member of Clubs or Organizations Not on f ile 12/01/2023 Attends Club or Organization Meetings Not on mckayla e 12/01/2023 Marital Status Not on file 12/01/2023 PHQ-2 Answer Date Recorded PHQ-2 Score 1 07/02/2024 [facility] - Occupational Stress Questionnaire Answer [...] in an abandoned building, in an overnight snf, or couch-surfing.) No 12/01/2023 Are you worried [...] st Contact Info) Description 07/16/2025 2:30 PM PLANISHER Virtual Visit [facility] [address] [place] [phone] Deepika Lundy MD [address] [place] [phone] documented as of this encounter Visit Diagnoses Not on filedocumented in this encounter Additional Health Concerns Assessment Noted Time PHQ-9 Depression Total Score: 4 12/05/19 24 10:29 AM CDT documented as of this encounter Care Teams Army Ranger Relationship Specialty Start Date End Date Brigitte Harmon APRN IN HOME BABY SITTER [address] [place], [place] [phone] PCP - General 12/01/23 Rivka Henning, PharmD Pharmacist Pharmacist 05/08/19 Kemal Santana MD [facility] [place], [place] [phone] Endocrinology, Diabetes, and Metabolism 03/24/22 Deepika Lundy MD [address] [place] [phone] Assigned Pulmonology Provider 12/21/23 Regina Remy MD [address] [place] [address] Assigned PCP 03/22/24 01/19/25 Deepika Lundy MD [address] [place] [phone] Critical Care 10/09/24 Consuelo Benson APRN IN HOME BABY SITTER [address] [place] [address] [place] [address] Assigned PCP 01/20/25 06/21/25 Brigitte Harmon APRN IN HOME BABY SITTER [facility] [address] [place] [address] [place] [address] Assigned PCP 06/22/25 documented as of this encounter
--- OUTSIDE RECORDS SUMMARY | 2025-06-30 17:55 | XMS_ITS | Encounter Summary ---
Author Organization [facility] Address [address] [place] [address] Care Team Providers Care Liability Claims Representative Name Role Phone Rivka Henning PharmD Unavailable [phone] Kemal Santana MD Unavailable [phone] Brigitte Harmon PICKER AND SORTER LOAD AND UNLOAD CHILDREN COUNSELOR Primary Care Provider Deepika Lundy MD Unavailable Regina Remy MD Unavailable [phone] Deepika Lundy MD Unavailable Consuelo Benson APRN CHILDREN COUNSELOR Unavailable [phone] Brigitte Harmon APRN CHILDREN COUNSELOR Unavailable [phone] Encounter Details Date Type Department Care Team (Late st Contact Info) Description 08/15/2024 [facility] [place] [facility] [address] [address] Whitley Wei, RN Social History [...] re latives? Once a week 12/01/2023 Attends Confucianism Services Not on file 11/30 Active Member of Clubs or Organizations Not on f ile 12/01/2023 Attends Club or Organization Meetings Not on mckayla e 12/01/2023 Marital Status Not on file 12/01/2023 PHQ-2 Answer Date Recorded PHQ-2 Score 1 07/02/2024 [facility] - Occupational Stress Questionnaire [...] in an abandoned building, in an overnight care home, or couch-surfing.) No 12/01/2023 Are you worried [...] st Contact Info) Description 07/16/2025 2:[address] OPERATIONS CLERK Virtual Visit [facility] [address] [place] [address] Deepika Lundy MD [address] [place] [phone] documented as of this encounter Visit Diagnoses Not on filedocumented in this encounter Additional Health Concerns Assessment Noted Time PHQ-9 Depression Total Score: 4 12/05/19 24 10:29 AM CDT documented as of this encounter Care Teams Liability Claims Representative Relationship Specialty Start Date End Date Brigitte Harmon APRN CHILDREN COUNSELOR [address] [place], [place] [phone] PCP - General 12/01/23 Rivka Henning, PharmD Pharmacist Pharmacist 05/08/19 Kemal Santana MD [facility] [place], [place] [phone] Endocrinology, Diabetes, and Metabolism 03/24/22 Deepika Lundy MD [address] [place] [address] Assigned Pulmonology Provider 12/21/23 Regina Remy MD [address] [place] [address] Assigned PCP 03/22/24 01/19/25 Deepika Lundy MD [address] [place] [address] Critical Care 10/09/24 Consuelo Benson APRN CHILDREN COUNSELOR [address] [place] [address] [place] [address] Assigned PCP 01/20/25 06/21/25 Brigitte Harmon APRN CHILDREN COUNSELOR [facility] [address] [place] [address] [place] [address] Assigned PCP 06/22/25 documented as of this encounter
--- OUTSIDE RECORDS SUMMARY | 2025-06-30 17:55 | XMS_ITS | Encounter Summary ---
Author Organization [facility] Address [address] [place] [address] Care Team Providers Care Soda Tester Name Role Phone Rivka Henning PharmD Unavailable [phone] Kemal Santana MD Unavailable [phone] Brigitte Harmon MOTOR ANALYST PANEL LAMINATOR Primary Care Provider Deepika Lundy MD Unavailable Regina Remy MD Unavailable [phone] Deepika Lundy MD Unavailable Consuelo Benson APRN PANEL LAMINATOR Unavailable [phone] Brigitte Harmon APRN PANEL LAMINATOR Unavailable [phone] Encounter Details Date Type Department Care Team (Late st Contact Info) Description 10/07/2024 [facility] [place] [facility] [address] [address] Whitley Wei, RN Social History [...] re latives? Once a week 12/01/2023 Attends Congregation Services Not on file 11/30 Active Member of Clubs or Organizations Not on f ile 12/01/2023 Attends Club or Organization Meetings Not on mckayla e 12/01/2023 Marital Status Not on file 12/01/2023 PHQ-2 Answer Date Recorded PHQ-2 Score 0 10/03/2024 [facility] - Occupational Stress Questionnaire Answer [...] in an abandoned building, in an overnight assisted, or couch-surfing.) No 12/01/2023 Are you worried [...] st Contact Info) Description 07/16/2025 2:30 PM OPTICAL GLASS SILVERER Virtual Visit [facility] Specialty Clinic [address] [place] [address] Deepika Lundy MD [address] [place] [address] documented as of this encounter Visit Diagnoses Not on filedocumented in this encounter Additional Health Concerns Assessment Noted Time PHQ-9 Depression Total Score: 4 12/05/19 24 10:29 AM CDT documented as of this encounter Care Teams Soda Tester Relationship Specialty Start Date End Date Brigitte Harmon APRN PANEL LAMINATOR [address] [place], [place] [phone] PCP - General 12/01/23 Rivka Henning, PharmD Pharmacist Pharmacist 05/08/19 Kemal Santana MD [facility] [place], [place] [phone] Endocrinology, Diabetes, and Metabolism 03/24/22 Deepika Lundy MD [address] [place] [address] Assigned Pulmonology Provider 12/21/23 Regina Remy MD [address] [place] [address] Assigned PCP 03/22/24 01/19/25 Deepika Lundy MD [address] [place] [address] Critical Care 10/09/24 Consuelo Benson APRN PANEL LAMINATOR [address] [place] [address] [place] [address] Assigned PCP 01/20/25 06/21/25 Brigitte Harmon APRN PANEL LAMINATOR [facility] [address] [place] [address] [place] [address] Assigned PCP 06/22/25 documented as of this encounter
--- OUTSIDE RECORDS SUMMARY | 2025-06-30 17:55 | XMS_ITS | Encounter Summary ---
Author Organization [facility] Address [address] [place] [address]. [place] [address] Care Team Providers Care Staff Appraiser Name Role Phone Juvencio Rivka PharmD Unavailable [phone] Kemal Santana MD Unavailable [phone] Brigitte Harmon AUTOMOBILE TIRE BUILDER MANAGER CORPORATE COMMUNICATIONS Primary Care Provider [phone] Deepika Lundy MD Unavailable Consuelo Benson APRN MANAGER CORPORATE COMMUNICATIONS Unavailable [phone] Regina Remy MD Unavailable [phone] Deepika Lundy MD Unavailable Consuelo Benson APRN MANAGER CORPORATE COMMUNICATIONS Unavailable Brigitte Harmon APRN MANAGER CORPORATE COMMUNICATIONS Unavailable [phone] Encounter Details Date Type Department Care Team (Late st Contact Info) Description 02/12/2024 MyC Medical Advice [facility] [address] [place] [phone] My Dunne, RN Social History Tobacco Use Types Packs/Day [...] re latives? Once a week 12/01/2023 Attends Lutheran Services Not on file 11/30 Active Member of Clubs or Organizations Not on f ile 12/01/2023 Attends Club or Organization Meetings Not on mckayla e 12/01/2023 Marital Status Not on file 12/01/2023 PHQ-2 Answer Date Recorded PHQ-2 Score 0 12/05/2023 [facility] - Occupational Stress Questionnaire Answer Date [...] in an abandoned building, in an overnight jail, or couch-surfing.) No 12/01/2023 Are you worried [...] st Contact Info) Description 07/16/2025 2:30 PM ALGEBRA TUTOR Virtual Visit [facility] [address] [facility] [address] [place] [phone] Deepika Lundy MD [address] [place] [phone] documented as of this encounter Visit Diagnoses Not on filedocumented in this encounter Additional Health Concerns Assessment Noted Time PHQ-9 Depression Total Score: 4 12/05/19 24 10:29 AM CDT documented as of this encounter Care Teams Staff Appraiser Relationship Specialty Start Date End Date Brigitte Harmon APRN MANAGER CORPORATE COMMUNICATIONS [address] [place] [phone] PCP - General 12/01/23 Rivka Henning, DeloresD Pharmacist Pharmacist 05/08/19 Kemal Santana MD [address] [place] [address] Endocrinology, Diabetes, and Metabolism 03/24/22 Deepika Lundy MD [address] [place] [phone] Assigned Pulmonology Provider 12/21/23 Consuelo Benson APRN MANAGER CORPORATE COMMUNICATIONS [address] [place] [phone] Assigned PCP 12/21/23 03/21/24 Regina Remy MD [address] [place] [address] Assigned PCP 03/22/24 01/19/25 Deepika Lundy MD [address] [place] [phone] Critical Care 10/09/24 Consuelo Benson APRN MANAGER CORPORATE COMMUNICATIONS [address] [place] [address] Assigned PCP 01/20/25 06/21/25 Brigitte Harmon APRN MANAGER CORPORATE COMMUNICATIONS [address] [place], [place] [phone] Assigned PCP 06/22/25 documented as of this encounter
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
[2025-06-30] MEDS: METHYLPREDNISOLONE SOD SUCC 62.5 MG/ML (125) 125 MG IVP (18:01)
[2025-06-30] MEDS: IPRAT-ALBUT 0.5-2.5 MG/3 ML NEB 1 NEB IH ×3 (18:01→22:55)
--- NOTE | 2025-06-30 18:01 | CRLHL7_ITS ---
For Patients: As a result of the Century Cures Act, medical imaging exams and procedure reports are released immediately into your electronic medical record. You may view this report before your referring provider. If you have questions, please contact your health care provider. Indication: SOB Technique: PA and lateral views of the chest. Comparison: 06/19/2023. Findings: Low lung volumes. Mild elevation of the right hemidiaphragm. Normal cardiomediastinal silhouette. Mild bibasilar opacities. No pleural effusion or visualized pneumothorax. Mild degenerative changes of the visualized spine. Impression: Mild bibasilar opacities are favored to represent atelectasis given low lung volumes. Dictated by Dickson Tabor MD @ 06/30/2025 6:38:37 PM (Electronically Signed)
[2025-06-30 18:15] LABS: Hematocrit* 40.2 % (33.0-51.0); Hemoglobin* 12.0 gm/dL (12.0-16.0); Immature Granulocytes Abs Auto 0.02 K/uL (0.00-0.30); Immature Granulocytes Pct Auto 0.2 %; Mean Corpuscular HGB Conc 30 gm/dL (32-36); Mean Corpuscular Hemoglobin 26 pg (26-34); Mean Corpuscular Volume 87 fL (80-100); RDW Coefficient of Variation % 16.7 % (11.5-15.5); Red Blood Count* 4.64 m/uL (4.00-5.20); White Blood Count* 9.96 K/uL (4.50-11.00)
--- NOTE | 2025-06-30 18:15 | ED_ITS ---
HPI - General Adult General Chief complaint: Shortness of Breath/Dyspnea Stated complaint: Trouble Breathing Time Seen by Provider: 06/30/25 17:53 Source: patient Mode of arrival: ambulatory Limitations: no limitations History of Present Illness HPI narrative: 65-year-old female, history of obesity, interstitial lung disease, sarcoidosis of the lung presenting with acute hypoxemic respiratory failure in the past, hypertension, presents with shortness of breath. Patient states that 2 days ago she started feeling unwell, yesterday shortness of breath and cough got worse to the point where today she was having a hard time breathing. She denies any fevers or chills. No vomiting. She denies any chest pain. Related Data Home Medications ?Medication ?Instructions ?Recorded ?Confirmed amlodipine 10 mg tablet 10 mg PO DAILY 06/19/2304/22 aspirin 81 mg tablet,delayed 81 mg PO DAILY 06/19/23 1 09/08/22 release (Adult Aspirin Regimen) azathioprine 100 mg tablet 100 mg PO HS 06/19/2307/08 cetirizine 10 mg tablet (All Day 10 mg PO DAILY 07/08/23 Allergy (cetirizine)) furosemide 40 mg tablet 40 mg PO DAILY PRN 06/19/23 07/08/23 hydralazine 25 mg tablet 25 mg PO BID 06/19/23 ipratropium 0.5 mg-albuterol 3 mg 3 ml inhalation Q6H 06/19/23 07/08/23 (2.5 mg base)/3 mL nebulization soln ondansetron 4 mg disintegrating 4 mg PO Q8H PRN 07/08/23 tablet prednisone 10 mg tablet 10 mg PO DAILY 06/19/2304/22 Held on 07/09/23. Instructions: Resume on 07/21/23. sertraline 50 mg tablet 50 mg PO DAILY 06/19/2304/22 albuterol sulfate 90 mcg/actuation 2 inh inhalation Q6 H PRN 07/08/23 07/08/23 aerosol inhaler magnesium gluconate 30 mg (550 mg) 30 mg PO BID 07/08/23 tablet metoprolol tartrate 25 mg tablet 25 mg PO BID 07/08/23 07/08/23 Previous Rx's ?Medication ?Instructions ?Recorded hydroxyzine pamoate 25 mg capsule 25 mg PO Q4H PRN Anx iety #60 caps 07/09/23 prednisone 20 mg tablet 40 mg (2 x 20 mg) PO DAILYWM #15 07/09/23 tabs Allergies Allergy/AdvReac Type Severity Reaction Status Date / Time amoxicillin Allergy Hives Verified 06/19/23 20:04 azithromycin Allergy Hives Verified 06/19/23 20:04 codeine Allergy Vomiting Verified 06/19/23 20:04 methotrexate Allergy Blurry Verified 06/19/23 20:04 Vision Penicillins Allergy Hives Verified 06/19/23 20:04 Review of Systems Status of ROS: Reports: 10 or more systems reviewed and unremarkable except as noted in History and below [facility] Medical History Brain aneurysm ?I67.1 - Cerebral aneurysm, nonruptured (ICD-10) Psoriasis ?L40.9 - Psoriasis, unspecified (ICD-10) Migraine ?G43.909 - Migraine, unspecified, not intractable, without status migrainosus (ICD-10) Hx pulmonary embolism ?Z86.711 - Personal history of pulmonary embolism (ICD-10) Social History What is your current living situation?: I presently have a place to live Problems where you live: no known problems Problems where you live details: n/a In the past 12 months, utilities in danger of being shut off: no In past 12 months, lack of transportation kept you from medical appts, meetings, work, or getting things needed for daily living: no In the past 12 mos, have been you worried that your food would run out before you had money to buy more?: never true In the past 12 mos, the food you bought just didn't last and you didn't have money to buy more?: never true Highest level of school completed/degree received: some college, no degree Smoking Status: Former smoker Second hand tobacco smoke exposure: No How often do you have a drink containing alcohol: never How often do you have six or more drinks on one occasion: Never AUDIT-C Alcohol total score: 0 Non-prescribed substance use: marijuana (any form) How often does anyone, including family, friends and others, physically hurt you : never How often does anyone, including family, friends and others, insult or talk down to you: never How often does anyone, including family, friends and others, threaten you with harm: never How often does anyone, including family, friends and others, scream or curse at you: never service: No Exam Narrative: Exam Narrative: Wheeze, well-developed patient in acute respiratory distress. Alert and oriented. Answers questions appropriately. Patient cannot complete a full sentence without catching her breath. She presents at 73% on room air and was placed on 10 L non-rebreather where she went up to 97%. HEENT: Normocephalic atraumatic. Pupils are equally round reactive to light. Extraocular muscles are intact. Conjunctivae are moist without any icterus noted. Moist mucous membranes. Cardiovascular: Heart is regular rate and rhythm S1 and S2 are present without any murmurs. Lungs: Diffuse wheezing bilaterally. Abdomen: Soft and nontender nondistended with normal bowel sounds. Extremities: Bilateral lower extremities are without edema. Skin: Well perfused without any obvious rashes. Const: Vital Signs, click to edit/add: Vital Signs - 24 hr 06/30/25 17:59 06/30/25 17:59 06/30/25 18:00 Temperature 99.2 F Pulse Rate 87 86 Pulse Rate [Pulse Oximeter] 85 Respiratory Rate 32 H 29 H 27 H Blood Pressure Blood Pressure [Le ft Upper Arm] 115/103 H Pulse Oximetry 73 L 92 95 Oxygen Delivery Me thod Room Air Oxygen Flow Rate 06/30/25 18:01 06/30/25 18:01 06/30/25 18:21 Temperature Pulse Rate 81 82 Pulse Rate [Pulse Oximeter] Respiratory Rate 24 27 H Blood Pressure 115/103 H Blood Pressure [Le ft Upper Arm] Pulse Oximetry 97 96 94 Oxygen Delivery Me thod OxyMask Oxygen Flow Rate 4 06/30/25 18:23 06/30/25 18:30 06/30/25 18:45 Temperature Pulse Rate 77 76 78 Pulse Rate [Pulse Oximeter] Respiratory Rate 30 H 21 14 Blood Pressure 123/59 L Blood Pressure [Le ft Upper Arm] Pulse Oximetry 96 97 94 Oxygen Delivery Me thod OxyMask Oxygen Flow Rate 4 06/30/25 19:03 Temperature Pulse Rate Pulse Rate [Pulse Oximeter] Respiratory Rate Blood Pressure Blood Pressure [Le ft Upper Arm] Pulse Oximetry 91 Oxygen Delivery Me thod Nasal Cannula Oxygen Flow Rate 3 Course Course ED Course: Patient received a DuoNeb, IV established and 125 mg of IV Solu-Medrol was given. This did help her symptoms, nursing was able to turn down her mask to 4 L and she still maintained her oxygen saturation in the upper 90s. 2nd DuoNeb was done we were able to get the patient on 3 L nasal cannula and 91%. EKG, read by me, shows normal sinus rhythm with a pulse of 77. Her blood work including a CBC, chemistries, LFTs, troponin were unremarkable. Her lactate was elevated at 2.7 - 1 L of normal saline was started over 2 hours at this time. CRP slightly elevated at 3.1. Triple swab pending at this time. Chest x-ray, read by me, shows atelectasis. However because of her profound hypoxia we did proceed with a chest CT which showed moderate emphysema, no evidence of pneumonia. CT also showed a nodular thyroid with a repeat ultrasound recommended. Vital Signs Vital signs: Initial Vital Signs Temperature 99.2 F 06/30/25 17:59 Temperature Source Axillary 06/30/25 17:59 Pulse Rate 87 06/30/25 17:59 Respiratory Rate 32 H 06/30/25 17:59 Blood Pressure 115/103 H 06/30/25 17:59 Blood Pressure Mean 107 H 06/30/25 17:59 Blood Pressure Position Sitting 06/30/25 17:59 Pulse Oximetry 73 L 06/30/25 17:59 Oxygen Delivery Method Room Air 06/30/25 17:59 Vital Signs Temperature 99.2 F 06/30/25 17:59 Pulse Rate 87 06/30/25 17:59 Respiratory Rate 32 H 06/30/25 17:59 Blood Pressure 115/103 H 06/30/25 17:59 Pulse Oximetry 73 L 06/30/25 17:59 Oxygen Delivery Method Room Air 06/30/25 17:59 Temperature 99.2 F 06/30/25 17:59 Pulse Rate 78 06/30/25 18:45 Respiratory Rate 14 06/30/25 18:45 Blood Pressure 123/59 L 06/30/25 18:23 Pulse Oximetry 91 06/30/25 19:03 Oxygen Delivery Method Nasal Cannula 06/30/25 19:03 Oxygen Flow Rate 3 06/30/25 19:03 Medications Administered Medications: Generic Name Dose Route Start Last Admin Trade Name Freq PRN Reason Stop Dose Admin Sodium Chloride 1,000 mls @ 500 mls/hr 06/30/25 18:29 06/30/25 18:38 0.9 % Sodium Chloride 1000 Ml IV 06/30/25 20:28 500 mls/hr .Q2H ROBERTH Administration Discontinued Medications Generic Name Dose Route Start Last Admin Trade Name Freq PRN Reason Stop Dose Admin Albuterol/Ipratropium 1 neb 06/30/25 18:01 06/30/25 18:01 Iprat-Albut 0.5-2.5 Mg/3 Ml Neb 06/30/25 18:02 1 neb ONCE ONE Administration Albuterol/Ipratropium 1 neb 06/30/25 18:22 06/30/25 18:22 Iprat-Albut 0.5-2.5 Mg/3 Ml [facility] 06/30/25 18:23 1 neb ONCE ONE Administration Methylprednisolone Sodium Succinate 125 mg 06/30/25 18:01 06/30/25 18:01 Methylprednisolone Sod Succ 62.5 Mg/Ml (125) IVP 06/30/25 18:02 125 mg ONCE ONE Administration Ondansetron HCl 4 mg 06/30/25 18:28 06/30/25 18:38 Ondansetron 2 Mg/Ml Inj IVP 06/30/25 18:29 4 mg ONCE ONE Administration Medical Decision Making [facility] Narrative Medical decision making narrative: 65-year-old female with pulmonary sarcoidosis presenting in acute hypoxic respiratory failure. Patient will be admitted for further management. Lab Data Lab results reviewed: Yes I reviewed the patient's lab results Labs: Lab Results 06/30/25 06/30/25 Range/Units 18: 18:05 WBC 9.96 (4.50-11.00) K/uL RBC 4.64 (4.00-5.20) m/uL Hgb 12.0 (12.0-16.0) gm/dL Hct 40.2 (33.0-51.0) % MCV 87 (80-100) fL MCH 26 (26-34) pg MCHC 30 L (32-36) gm/dL RDW Coeff of Donna 16.7 H (11.5-15.5) % Plt Count 330 (140-440) K/uL Neut % (Auto) 88.3 H (42.0-72.0) % Lymph % (Auto) 5.9 L (20-44) % [place] % (Auto) 3.6 (0.0-11.0) % Eos % (Auto) 1.6 (0.0-7.0) % Baso % (Auto) 0.4 (0.0-3.0) % Neut # (Auto) 8.80 H (1.7-7.0) K/uL Lymph # (Auto) 0.60 L (0.90-2.90) K/uL [place] # (Auto) 0.40 (0.00-0.90) K/UL Eos # (Auto) 0.16 (0.00-0.50) K/uL Baso # (Auto) 0.04 (0.00-0.30) K/uL Abs Immat Gran (auto) 0.02 (0.00-0.30) K/uL Imm/Tot Granulo (auto) 0.2 % VBG pH 7.335 (7.32-7.43) VBG pCO2 46 (40-50) mmHG VBG pO2 50.9 H (25-47) mmHG VBG HCO3 25 (21-28) mmol/L Sodium 138 (135-149) mmol/L Potassium 4.5 (3.6-5.1) mmol/L Chloride 99 (96-114) mmol/L Carbon Dioxide 23 (20-32) mmol/L Anion Gap 16 H (7-15) mEq/L BUN 13 (7-30) mg/dL Creatinine 1.2 (0.5-1.5) mg/dL Estimated GFR 51 ml/min Glucose 113 (60-115) mg/dL Lactate 2.7 H (0.5-1.9) mmol/L Calcium 9.3 (8.4-10.6) mg/dL Magnesium 1.9 (1.5-2.6) mg/dL Total Bilirubin 0.8 (0.1-1.5) mg/dL Direct Bilirubin 0.3 (0.0-0.5) mg/dL AST 21 (12-35) U/L ALT 18 (4-35) U/L Alkaline Phosphatase 87 (40-150) U/L Troponin I < 0.01 (0.01-0.04) ng/mL POC Troponin I High Sensi < 2.9 L (2.9-13.0) pg/mL C-Reactive Protein 3.1 H (0.5-1.0) mg/dL NT-Pro-B Natriuret Pep 478 H (See Note) pg/mL Total Protein 7.6 (6.0-8.3) g/dL Albumin 4.5 (3.3-5.0) g/dL Imaging Data Chest x-ray: Attestation: I have reviewed the pertinent imaging results. Radiologist's impression: Technique: PA and lateral views of the chest. Comparison: 06/19/2023. Findings: Low lung volumes. Mild elevation of the right hemidiaphragm. Normal cardiomediastinal silhouette. Mild bibasilar opacities. No pleural effusion or visualized pneumothorax. Mild degenerative changes of the visualized spine. Impression: Mild bibasilar opacities are favored to represent atelectasis given low lung volumes. CT scan - chest: Attestation: I have reviewed the pertinent imaging results. Radiologist's impression: TECHNIQUE: CT chest without contrast. COMPARISON: 07/07/2023 FINDINGS: Moderate emphysema is present. Consolidation within the posterior right upper lobe along the fissure is grossly stable compared to the prior examination and therefore favored to represent scarring. New consolidation within the inferior lingula likely represents atelectasis or scar. Right upper lobe calcified granuloma. No pulmonary edema. No pleural effusion or pneumothorax. Evidence of a right thyroid nodule. Prominent mediastinal lymph nodes and hilar lymph nodes are grossly stable. The heart is normal in size. Coronary calcification is present. The aorta is not aneurysmal. No axillary lymphadenopathy. No chest wall mass. Images of the upper abdomen demonstrate a cyst within the liver. Cholelithiasis is present within a partially distended gallbladder with indeterminate haziness, similar compared to the prior examination. No significant pericholecystic fluid to suggest acute cholecystitis. Bone windows demonstrate no suspicious lytic or sclerotic lesion. No fracture. IMPRESSION: 1. New small peripheral consolidation within the inferior lingula compared to 2022, most compatible with atelectasis or scarring. To consider follow up CT in 3 months to document stability. 2. Grossly stable linear scarring within the right upper lobe. 3. Moderate emphysema. 4. Prominent right thyroid likely reflecting nodularity. Routine follow-up thyroid ultrasound is recommended. ECG Data Attestation: I personally reviewed and interpreted this ECG as follows: Critical Care Time Critical Care Time Total Critical Care Time in Minutes: 60 Discharge Plan Discharge Clinical Impression: Acute hypoxemic respiratory failure Patient Disposition: Admitted As Inpatient Condition: Stable Procedures ABG Interpretation ABG Results: 06/30/25 18:05 VBG pH 7.335 VBG pCO2 46 VBG pO2 50.9 H VBG HCO3 25
[2025-06-30 18:22] LABS: HCO3 VBG 25 mmol/L (21-28); Lactate* 2.7 mmol/L (0.5-1.9); PCO2 VBG 46 mmHG (40-50); PO2 VBG 50.9 mmHG (25-47); pH VBG 7.335 (7.32-7.43)
[2025-06-30 18:38] LABS: Lymphocytes Absolute Auto 0.60 K/uL (0.90-2.90); Slide Review Reflex No
[2025-06-30] MEDS: ONDANSETRON 2 MG/ML inj 4 MG IVP (18:38)
[2025-06-30 18:40] LABS: Albumin* 4.5 g/dL (3.3-5.0); Chloride* 99 mmol/L (96-114); Potassium* 4.5 mmol/L (3.6-5.1); Sodium* 138 mmol/L (135-149)
[2025-06-30 18:43] LABS: Alanine Aminotransferase* 18 U/L (4-35); Alkaline Phosphatase* 87 U/L (40-150); Anion Gap 16 mEq/L (7-15); Aspartate Amino Transferase* 21 U/L (12-35); Bilirubin Direct* 0.3 mg/dL (0.0-0.5); Bilirubin Total* 0.8 mg/dL (0.1-1.5); Blood Urea Nitrogen* 13 mg/dL (7-30); Calcium* 9.3 mg/dL (8.4-10.6); Carbon Dioxide* 23 mmol/L (20-32); Creatinine* 1.2 mg/dL (0.5-1.5); Estimated Glomerular Filt Rate 51 ml/min; Glucose* 113 mg/dL (60-115); Total Protein* 7.6 g/dL (6.0-8.3)
[2025-06-30 18:57] LABS: NT Pro B Type NatriureticPept* 478 pg/mL (See Note)
--- NOTE | 2025-06-30 19:01 | CRLHL7_ITS ---
For Patients: As a result of the Century Cures Act, medical imaging exams and procedure reports are released immediately into your electronic medical record. You may view this report before your referring provider. If you have questions, please contact your health care provider. INDICATION: Shortness of breath TECHNIQUE: CT chest without contrast. COMPARISON: 07/07/2023 FINDINGS: Moderate emphysema is present. Consolidation within the posterior right upper lobe along the fissure is grossly stable compared to the prior examination and therefore favored to represent scarring. New consolidation within the inferior lingula likely represents atelectasis or scar. Right upper lobe calcified granuloma. No pulmonary edema. No pleural effusion or pneumothorax. Evidence of a right thyroid nodule. Prominent mediastinal lymph nodes and hilar lymph nodes are grossly stable. The heart is normal in size. Coronary calcification is present. The aorta is not aneurysmal. No axillary lymphadenopathy. No chest wall mass. Images of the upper abdomen demonstrate a cyst within the liver. Cholelithiasis is present within a partially distended gallbladder with indeterminate haziness, similar compared to the prior examination. No significant pericholecystic fluid to suggest acute cholecystitis. Bone windows demonstrate no suspicious lytic or sclerotic lesion. No fracture. IMPRESSION: 1. New small peripheral consolidation within the inferior lingula compared to 2022, most compatible with atelectasis or scarring. To consider follow up CT in 3 months to document stability. 2. Grossly stable linear scarring within the right upper lobe. 3. Moderate emphysema. 4. Prominent right thyroid likely reflecting nodularity. Routine follow-up thyroid ultrasound is recommended. Please note that all CT scans at this facility use dose modulation, iterative reconstruction, and/or weight-based dosing when appropriate to reduce radiation dose to as low as reasonably achievable. Dictated by Trevor Foley MD @ 06/30/2025 7:42:25 PM (Electronically Signed)
[2025-06-30 20:02] LABS: PCR FLU A Negative PCR FLU A (Negative); PCR FLU B Negative PCR FLU B (Negative); PCR RSV Negative PCR RSV (Negative); SARS PCR* Negative SARS-CoV-2 (Negative)
--- NOTE | 2025-06-30 21:14 | PM.IMHP1 ---
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 -patient is following machine bander and cellophaner at [facility], last appointment was 3 months ago and she has follow-up appointment on July 16. -patient received 1 dose of methylprednisone IV 125 mg at 6:00 p.m., will give another does 8 hours after that (4 a.m.). Will reassess early in the morning if patient is still needing IV steroid versus starting her on oral steroids. -CT chest: New small peripheral consolidation within the inferior lingula compared to 2022, most compatible with atelectasis or scarring. To consider follow up CT in 3 months to document stability. Status: Acute (3) Thyroid nodule incidentally noted on imaging study: Problem comment: CT: -Prominent right thyroid likely reflecting nodularity. Routine follow-up thyroid ultrasound is recommended. Status: Acute (4) Sleep apnea: Status: Chronic (5) Hypertension: Problem comment: On amlodipine, hydralazine and beta-patricia Status: Chronic (6) Anxiety: Problem comment: Previous admission: Got Ativan for a panic attack. Tried hydroxyzine instead and this worked well. Status: Acute (7) Brain aneurysm: Problem comment: Coiled in 2018 On beta-patricia since the diagnosis of aneurysm. Status: Acute Total Time Spent Total Time Spent: Time spent: Today I spent 75 minutes seeing the patient, discussing the patient with ER staff, reviewing Expanse and EPIC notes/diagnostics, discussing the care plan with our care time that includes social work, PT/OT, pharmacy, RT, intermediate and documenting my impressions and plan in the medical record. Hospitalist- H&P: HPI History of Present Illness Date Seen: 06/30/25 Chief complaint: Trouble Breathing Narrative: Viktoria Pennington is a 65 year old female with past medical history of hypertension, JUAN, interstitial lung disease /sarcoidosis, brain aneurysm and anxiety who presents with worsening shortness of breath, coughing and clear phlegm which could be an exacerbation of her interstitial lung disease. Patient denies history of heart disease. She states that at baseline she might get short of breath on exertion. She denies fevers but she mentioned that she was exposed to someone with an upper respiratory tract infection recently. On admission patient was found to have labored breathing and is feeling short of breath. At the beginning, she needed a non rebreather mask with 10 liters/minute oxygen. After giving her IV steroids and DuoNebs her oxygen requirements decreased to 3 liters/minute through nasal cannula. At the ED, patient was hemodynamically stable. Afebrile. Was not found to be septic. Chest CT scan was done and it did not suggest infection but it showed moderate emphysema and a new small peripheral consolidation within the inferior lingula compared to CT scan in 2022, this small consolidation suggested atelectasis or scarring. Review of Systems Status of ROS: Reports: 6 or more systems reviewed and unremarkable except as noted in History and below Medical Decision Making Medical Decision Making Has patient completed a Health Care Directive: No [facility] Medical History (Updated 06/30/25 @ 21:51 by Anastacia Jacques MD) Brain aneurysm ?I67.1 - Cerebral aneurysm, nonruptured (ICD-10) Psoriasis ?L40.9 - Psoriasis, unspecified (ICD-10) Migraine ?G43.909 - Migraine, unspecified, not intractable, without status migrainosus (ICD-10) Hx pulmonary embolism ?Z86.711 - Personal history of pulmonary embolism (ICD-10) Social History What is your current living situation?: I presently have a place to live Problems where you live: no known problems Problems where you live details: n/a In the past 12 months, utilities in danger of being shut off: no In past 12 months, lack of transportation kept you from medical appts, meetings, work, or getting things needed for daily living: no In the past 12 mos, have been you worried that your food would run out before you had money to buy more?: never true In the past 12 mos, the food you bought just didn't last and you didn't have money to buy more?: never true Highest level of school completed/degree received: some college, no degree Smoking Status: Former smoker Second hand tobacco smoke exposure: No How often do you have a drink containing alcohol: never How often do you have six or more drinks on one occasion: Never AUDIT-C Alcohol total score: 0 Non-prescribed substance use: marijuana (any form) How often does anyone, including family, friends and others, physically hurt you: never How often does anyone, including family, friends and others, insult or talk down to you: never How often does anyone, including family, friends and others, threaten you with harm: never How often does anyone, including family, friends and others, scream or curse at you: never service: No Meds Home Medications and Allergies Home Medications ?Medication ?Instructions ?Recorded ?Confirmed ?Type amlodipine 10 mg tablet 10 mg PO DAILY 06/19/23 07/08/23 History aspirin 81 mg tablet,delayed 81 mg PO DAILY 06/19/23 07/08/23 History release (Adult Aspirin Regimen) azathioprine 100 mg tablet 100 mg PO HS 06/19/23 07/08/23 History cetirizine 10 mg tablet (All Day 10 mg PO DAILY 06/19/23 07/08/23 History Allergy (cetirizine)) furosemide 40 mg tablet 40 mg PO DAILY PRN 06/19/23 07/08/23 History hydralazine 25 mg tablet 25 mg PO BID 06/19/23 07/08/23 History ipratropium 0.5 mg-albuterol 3 mg 3 ml inhalation Q6H 06/19/23 07/08/23 History (2.5 mg base)/3 mL nebulization soln ondansetron 4 mg disintegrating 4 mg PO Q8H PRN 06/19/23 07/08/23 History tablet prednisone 10 mg tablet 10 mg PO DAILY 06/19/23 07/08/23 History Held on 07/09/23. Instructions: Resume on 07/21/23. sertraline 50 mg tablet 50 mg PO DAILY 06/19/23 07/08/23 History albuterol sulfate 90 mcg/actuation 2 inh inhalation Q6H PRN 07/08/23 07/08/23 History aerosol inhaler magnesium gluconate 30 mg (550 mg) 30 mg PO BID 07/08/23 07/08/23 History tablet metoprolol tartrate 25 mg tablet 25 mg PO BID 07/08/23 07/08/23 History hydroxyzine pamoate 25 mg capsule 25 mg PO Q4H PRN Anxiety #60 caps 07/09/23 Rx prednisone 20 mg tablet 40 mg (2 x 20 mg) PO DAILYWM #15 07/09/23 Rx tabs Allergies Allergy/AdvReac Type Severity Reaction Status Date / Time amoxicillin Allergy Hives Verified 06/19/23 20:04 azithromycin Allergy Hives Verified 06/19/23 20:04 codeine Allergy Vomiting Verified 06/19/23 20:04 methotrexate Allergy Blurry Verified 06/19/23 20:04 Vision Penicillins Allergy Hives Verified 06/19/23 20:04 Exam Narrative: Exam Narrative: Physical exam GENERAL: Labored breathing, no acute distress. On 3 liter/minute nasal cannula oxygen. HEAD AND NECK: Atraumatic, normocephalic CARDIOVASCULAR: RRR. Normal S1, S2. No murmurs. RESPIRATORY: Good air entry B/L. +ve wheezes . GASTROINTESTINAL: Not distended, not tender to palpation. NEUROLOGY: Alert, awake, oriented X 3. Normal speech. No focal weakness. PSYCH: Normal mood, normal affect. Const: Vital Signs, click to edit/add: Vital Signs - 24 hr 06/30/25 17:59 06/30/25 17:59 06/30/25 18:00 Temperature 99.2 F Pulse Rate 87 86 Pulse Rate [Pulse Oximeter] 85 Respiratory Rate 32 H 29 H 27 H Blood Pressure Blood Pressure [Le ft Upper Arm] 115/103 H Pulse Oximetry 73 L 92 95 Oxygen Delivery Me thod Room Air Oxygen Flow Rate 06/30/25 18:01 06/30/25 18:01 06/30/25 18:21 Temperature Pulse Rate 81 82 Pulse Rate [Pulse Oximeter] Respiratory Rate 24 27 H Blood Pressure 115/103 H Blood Pressure [Le ft Upper Arm] Pulse Oximetry 97 96 94 Oxygen Delivery Me thod OxyMask Oxygen Flow Rate 4 06/30/25 18:23 06/30/25 18:30 06/30/25 18:45 Temperature Pulse Rate 77 76 78 Pulse Rate [Pulse Oximeter] Respiratory Rate 30 H 21 14 Blood Pressure 123/59 L Blood Pressure [Le ft Upper Arm] Pulse Oximetry 96 97 94 Oxygen Delivery Me thod OxyMask Oxygen Flow Rate 4 06/30/25 19:00 06/30/25 19:03 06/30/25 19:15 Temperature Pulse Rate 76 72 Pulse Rate [Pulse Oximeter] Respiratory Rate 21 19 Blood Pressure Blood Pressure [Le ft Upper Arm] Pulse Oximetry 97 91 96 Oxygen Delivery Me thod Nasal Cannula Oxygen Flow Rate 3 06/30/25 19:30 06/30/25 19:45 06/30/25 20:00 Temperature Pulse Rate 78 75 Pulse Rate [Pulse Oximeter] Respiratory Rate 20 16 13 Blood Pressure Blood Pressure [Le ft Upper Arm] Pulse Oximetry 95 93 Oxygen Delivery Me thod Oxygen Flow Rate 06/30/25 20:15 Temperature Pulse Rate 75 Pulse Rate [Pulse Oximeter] Respiratory Rate 14 Blood Pressure 135/60 Blood Pressure [Le ft Upper Arm] Pulse Oximetry 93 Oxygen Delivery Me thod Room Air Oxygen Flow Rate Hospitalist - H&P: Result Labs Labs: Short CBC 06/30/25 Range/Units 18:05 WBC 9.96 (4.50-11.00) K/uL Hgb 12.0 (12.0-16.0) gm/dL Hct 40.2 (33.0-51.0) % Plt Count 330 (140-440) K/uL BMP 06/30/25 18:05 Sodium 138 Potassium 4.5 Chloride 99 Carbon Dioxide 23 BUN 13 Creatinine 1.2 Glucose 113 Calcium 9.3 Cardiac Enzymes 06/30/25 Range/Units 18:05 Troponin I < 0.01 (0.01-0.04) ng/mL Liver Function 06/30/25 Range/Units 18:05 Total Bilirubin 0.8 (0.1-1.5) mg/dL Direct Bilirubin 0.3 (0.0-0.5) mg/dL AST 21 (12-35) U/L ALT 18 (4-35) U/L Alkaline Phosphatase 87 (40-150) U/L Albumin 4.5 (3.3-5.0) g/dL Imaging CT scan - chest: Attestation: I have reviewed the pertinent imaging results. Radiologist's impression: INDICATION: Shortness of breath TECHNIQUE: CT chest without contrast. COMPARISON: 07/07/2023 FINDINGS: Moderate emphysema is present. Consolidation within the posterior right upper lobe along the fissure is grossly stable compared to the prior examination and therefore favored to represent scarring. New consolidation within the inferior lingula likely represents atelectasis or scar. Right upper lobe calcified granuloma. No pulmonary edema. No pleural effusion or pneumothorax. Evidence of a right thyroid nodule. Prominent mediastinal lymph nodes and hilar lymph nodes are grossly stable. The heart is normal in size. Coronary calcification is present. The aorta is not aneurysmal. No axillary lymphadenopathy. No chest wall mass. Images of the upper abdomen demonstrate a cyst within the liver. Cholelithiasis is present within a partially distended gallbladder with indeterminate haziness, similar compared to the prior examination. No significant pericholecystic fluid to suggest acute cholecystitis. Bone windows demonstrate no suspicious lytic or sclerotic lesion. No fracture. IMPRESSION: 1. New small peripheral consolidation within the inferior lingula compared to 2022, most compatible with atelectasis or scarring. To consider follow up CT in 3 months to document stability. 2. Grossly stable linear scarring within the right upper lobe. 3. Moderate emphysema. 4. Prominent right thyroid likely reflecting nodularity. Routine follow-up thyroid ultrasound is recommended. Please note that all CT scans at this facility use dose modulation, iterative reconstruction, and/or weight-based dosing when appropriate to reduce radiation dose to as low as reasonably achievable. Dictated by Trevor Foley MD @ 06/30/2025 7:42:25 PM
[2025-06-30] MEDS: METOPROLOL TARTRATE 25 MG TABLET PO (22:44)
[2025-06-30] MEDS: ENOXAPARIN 40 MG/0.4 ML INJ SUBCUT (22:48)
[2025-07-01] VITALS (10 sets, daily range): BP systolic 122–144; BP diastolic 54–76; PULSE 64–85; RESP 18–22; TEMP 36.2–36.7; O2SAT 91–97; BMI 51.8
[2025-07-01] MEDS: METHYLPREDNISOLONE SOD SUCC 62.5 MG/ML (125) 125 MG IVP (04:44)
[2025-07-01] MEDS: IPRAT-ALBUT 0.5-2.5 MG/3 ML NEB 1 NEB IH ×2 (04:46→09:57)
[2025-07-01] MEDS: ALBUTEROL INHALER 2 PUFF IH (05:30)
[2025-07-01 06:24] LABS: Lactate* 1.0 mmol/L (0.5-1.9)
[2025-07-01 06:27] LABS: Hematocrit* 37.1 % (33.0-51.0); Hemoglobin* 11.2 gm/dL (12.0-16.0); Mean Corpuscular HGB Conc 30 gm/dL (32-36); Mean Corpuscular Hemoglobin 26 pg (26-34); Mean Corpuscular Volume 87 fL (80-100); Red Blood Count* 4.27 m/uL (4.00-5.20); White Blood Count* 6.15 K/uL (4.50-11.00)
[2025-07-01 06:29] LABS: Slide Review Reflex No
--- NOTE | 2025-07-01 06:29 | PC.NURSE ---
Shift note ([id number]): Patient admitted from ED at?2044. Arrived via wheelchair. Accompanied by son German Parada (DALTON). Patient pleasant, alert and oriented. On admission reported was tolerating a headache rated 3-4/10. She has since reported headache has resolved. O2 sats dropped with activity. O2 increased to 7-10 LPM with activity to keep sats above 90%. Needed several minutes of recovery time once sitting at side of bed after ambulating to the bathroom and back.?
--- NOTE | 2025-07-01 06:30 | PC.NURSE ---
Shift note (): Patient admitted from ED at?2044. Arrived via wheelchair. Accompanied by son German Parada (DALTON). Patient pleasant, alert and oriented. On admission reported was tolerating a headache rated 3-4/10. She has since reported headache has resolved. O2 sats dropped with activity. O2 increased to 7-10 LPM with activity to keep sats above 90%. Needed several minutes of recovery time once sitting at side of bed after ambulating to the bathroom and back. Has otherwise maintained sats above 90% at 2.5-3LPM via NC.?
[2025-07-01 06:53] LABS: Chloride* 102 mmol/L (96-114); Potassium* 4.9 mmol/L (3.6-5.1); Sodium* 135 mmol/L (135-149)
[2025-07-01 06:56] LABS: Anion Gap 11 mEq/L (7-15); Blood Urea Nitrogen* 16 mg/dL (7-30); Calcium* 8.7 mg/dL (8.4-10.6); Carbon Dioxide* 22 mmol/L (20-32); Creatinine* 1.1 mg/dL (0.5-1.5); Est. Creatinine Clearance* 44.62; Estimated Glomerular Filt Rate 56 ml/min; Glucose* 152 mg/dL (60-115)
[2025-07-01] MEDS: CETIRIZINE HCL 10 MG TABLET PO (08:49)
[2025-07-01] MEDS: SERTRALINE 50 MG TABLET PO (08:49)
[2025-07-01] MEDS: ASPIRIN 81 MG TABLET EC PO (08:50)
[2025-07-01] MEDS: METOPROLOL TARTRATE 25 MG TABLET PO ×2 (08:50→20:45)
[2025-07-01] MEDS: HYDRALAZINE 25 MG TABLET PO (08:50)
[2025-07-01] MEDS: AMLODIPINE 10 MG TABLET PO (08:50)
[2025-07-01] MEDS: PERFLUTREN LIPID MICROSPHERES 2 ML VIAL IVP (10:43)
--- NOTE | 2025-07-01 11:11 | PM.IMPN1 ---
Assessment and Plan Assessment and plan (1) Acute hypoxemic respiratory failure: Problem comment: -in setting of chronic sarcoidosis, interstitial lung disease -awoke with oxygen saturations of 74% 07/07 -2 doses of methylprednisolone, now on oral prednisone (40 mg daily) - had previously been on a prednisone long taper of almost 18 months and was down to 6-7 mg a day. -respiratory therapy for pulmonary support -continue oxygen supplementation, weaning as able, to maintain saturations 88-92% -continue home medications for sarcoidosis -already has close follow-up with her tentering machine off bearer later this month. Status: Acute (2) Sarcoidosis of lung: Problem comment: -Dx 2015 following a skin/lump biopsy -current treatment prednisone 7 mg daily & azathioprine 100 mg HS, in addition to Ventolin and DuoNebs. -patient is following tentering machine off bearer at [facility], last appointment was 3 months ago and she has follow-up appointment on July 16. -patient received 2 doses of methylprednisone IV - then transition to oral prednisone on the morning of 07/01/2025 -CT chest: New small peripheral consolidation within the inferior lingula compared to 2022, most compatible with atelectasis or scarring. To consider follow up CT in 3 months to document stability. Status: Acute (3) Sleep apnea: Problem comment: -need outpatient sleep study - likely contributive Status: Chronic (4) Anxiety: Problem comment: Previous admission: Got Ativan for a panic attack. Tried hydroxyzine - ineffective oral prn ativan Status: Acute (5) Thyroid nodule incidentally noted on imaging study: Problem comment: CT: -Prominent right thyroid likely reflecting nodularity. Routine follow-up thyroid ultrasound is recommended. Status: Acute (6) Hypertension: Problem comment: On amlodipine, hydralazine and beta-patricia Status: Chronic (7) Morbid obesity: Problem comment: needs GLP1 and aggressive weight loss Status: Acute Subjective Date Seen: 07/01/25 Interval history: Daily Progress Note - Hospital Medicine Day #: 2 CC: Significant dyspnea on exertion, acute hypoxic respiratory failure without hypercapnia 24 HOUR UPDATE: Patient's nausea has been her biggest concern. She has had some retching and recurrent waves of significant nausea. Her abdominal pain has improved from what is being described in her initial presentation at [facility]. Her vital signs are all stable. She is on room air. She is not tachycardic or febrile. I was able to review the report of her CT from [facility]. I did a KUB this morning which was reassuring for no free air, no bowel obstruction, rectal stool but no obvious obstipation. Her Labs are all reassuring. Her Diaz is draining clear yellow urine. Notable Labs, Micro, Rads, Interventions: Vital signs are stable. She is requiring OxyMask at approximately 4 L to keep sats around 95%. But any exertion she goes up to 8-10 L by OxyMask. There are few scattered wheezes I appreciate but most notably her lung exam is lack of airflow bases. Otherwise she appears comfortable and is able to make her needs known and asks insightful questions. Her white blood cell count is reassuring. With no elevation. Her blood gas is reassuring with no evidence of hypercapnia or acidosis. Her chemistries were all reassuring. Her lactate is normalized. Her renal function is at baseline. Her troponin is undetectable. CRP is 3.1. Her BNP is 478. An echocardiogram this morning actually shows no evidence of pulmonary hypertension. I reviewed her last visit with pulmonary, December of 2024. Essentially they felt her chronic dyspnea and intermittent hypoxia was multifactorial. Clearly she has sarcoidosis, however her weight, distant history of asthma, likely undiagnosed JUAN and potentially pulmonary hypertension were all discussed at that visit. She has yet to schedule a sleep study. She was on a wean of prednisone. She attributes her weight gain of over 200 lb to the prednisone. Objective: Alert, insightful. No respiratory distress but mildly anxious. Vitals: see above Lungs: Minimal Scattered wheezes. Decreased at the bases. Cardiac: S1S2. Disposition/Potential discharge - Two her home, she lives with her brother who smokes. Likely in 2-3 days. Home oxygen is already established. Today I spent 50 minutes seeing the patient, reviewing Expanse and EPIC notes/diagnostics, discussing the care plan with our care time that includes social work, PT/OT, pharmacy, RT, senior living and documenting my impressions and plan in the medical record. Exam Const: Vital Signs, click to edit/add: Vital Signs - 24 hr 06/30/25 17:59 06/30/25 17:59 06/30/25 18:00 Temperature 99.2 F Pulse Rate 87 86 Pulse Rate [Pulse Oximeter] 85 Respiratory Rate 32 H 29 H 27 H Blood Pressure Blood Pressure [Le ft Upper Arm] 115/103 H Blood Pressure [Ri ght Arm] Pulse Oximetry 73 L 92 95 Oxygen Delivery Me thod Room Air Oxygen Flow Rate 06/30/25 18:01 06/30/25 18:01 06/30/25 18:21 Temperature Pulse Rate 81 82 Pulse Rate [Pulse Oximeter] Respiratory Rate 24 27 H Blood Pressure 115/103 H Blood Pressure [Le ft Upper Arm] Blood Pressure [Ri ght Arm] Pulse Oximetry 97 96 94 Oxygen Delivery Me thod OxyMask Oxygen Flow Rate 4 06/30/25 18:23 06/30/25 18:30 06/30/25 18:45 Temperature Pulse Rate 77 76 78 Pulse Rate [Pulse Oximeter] Respiratory Rate 30 H 21 14 Blood Pressure 123/59 L Blood Pressure [Le ft Upper Arm] Blood Pressure [Ri ght Arm] Pulse Oximetry 96 97 94 Oxygen Delivery Me thod OxyMask Oxygen Flow Rate 4 06/30/25 19:00 06/30/25 19:03 06/30/25 19:15 Temperature Pulse Rate 76 72 Pulse Rate [Pulse Oximeter] Respiratory Rate 21 19 Blood Pressure Blood Pressure [Le ft Upper Arm] Blood Pressure [Ri ght Arm] Pulse Oximetry 97 91 96 Oxygen Delivery Me thod Nasal Cannula Oxygen Flow Rate 3 06/30/25 19:30 06/30/25 19:45 06/30/25 20:00 Temperature Pulse Rate 78 75 Pulse Rate [Pulse Oximeter] Respiratory Rate 20 16 13 Blood Pressure Blood Pressure [Le ft Upper Arm] Blood Pressure [Ri ght Arm] Pulse Oximetry 95 93 Oxygen Delivery Me thod Oxygen Flow Rate 06/30/25 20:15 06/30/25 21:00 06/30/25 21:23 Temperature 98.1 F Pulse Rate 75 Pulse Rate [Pulse Oximeter] 80 Respiratory Rate 14 20 17 Blood Pressure 135/60 Blood Pressure [Le ft Upper Arm] Blood Pressure [Ri ght Arm] 135/63 Pulse Oximetry 93 94 93 Oxygen Delivery Me thod Room Air Nasal Cannula Nasal Cannula Oxygen Flow Rate 3 3 06/30/25 23:00 07/01/25 01:48 07/01/25 02:30 Temperature 97.1 F L Pulse Rate 64 Pulse Rate [Pulse Oximeter] 67 Respiratory Rate 18 Blood Pressure Blood Pressure [Le ft Upper Arm] Blood Pressure [Ri ght Arm] 129/66 Pulse Oximetry 94 97 Oxygen Delivery Me thod Nasal Cannula Nasal Cannula Oxygen Flow Rate 3 3 07/01/25 08:30 Temperature 98.0 F Pulse Rate Pulse Rate [Pulse Oximeter] 77 Respiratory Rate 20 Blood Pressure Blood Pressure [Le ft Upper Arm] Blood Pressure [Ri ght Arm] 125/71 Pulse Oximetry 95 Oxygen Delivery Me thod Nasal Cannula Oxygen Flow Rate 2.5 Labs Labs: Laboratory Results - last 24 hr 06/30/25 06/30/25 07/01/25 18:01 18:05 06:06 WBC 9.96 6.15 RBC 4.64 4.27 Hgb 12.0 11.2 L Hct 40.2 37.1 MCV 87 87 MCH 26 26 MCHC 30 L 30 L RDW Coeff of Donna 16.7 H Plt Count 330 265 Neut % (Auto) 88.3 H Lymph % (Auto) 5.9 L [place] % (Auto) 3.6 Eos % (Auto) 1.6 Baso % (Auto) 0.4 Neut # (Auto) 8.80 H Lymph # (Auto) 0.60 L [place] # (Auto) 0.40 Eos # (Auto) 0.16 Baso # (Auto) 0.04 Abs Immat Gran (auto) 0.02 Imm/Tot Granulo (auto) 0.2 VBG pH 7.335 VBG pCO2 46 VBG pO2 50.9 H VBG HCO3 25 Sodium 138 135 Potassium 4.5 4.9 Chloride 99 102 Carbon Dioxide 23 22 Anion Gap 16 H 11 BUN 13 16 Creatinine 1.2 1.1 Estimated Creat Clear 44.62 Estimated GFR 51 56 Glucose 113 152 H Lactate 2.7 H 1.0 Calcium 9.3 8.7 Magnesium 1.9 Total Bilirubin 0.8 Direct Bilirubin 0.3 AST 21 ALT 18 Alkaline Phosphatase 87 Troponin I < 0.01 POC Troponin I High Sensi < 2.9 L C-Reactive Protein 3.1 H NT-Pro-B Natriuret Pep 478 H Total Protein 7.6 Albumin 4.5 SARS-CoV-2 (PCR) Negative SARS-CoV-2 Influenza Type A (PCR) Negative PCR FLU A Influenza Type B (PCR) Negative PCR FLU B RSV (PCR) Negative PCR RSV
[2025-07-01] MEDS: DOXYCYCLINE HYCLATE 100 MG PO ×2 (12:03→20:46)
--- NOTE | 2025-07-01 14:40 | RESP.RT ---
Pt seen this AM. requiring increased oxygen to 9L via oxymask to use camode at bedside. She sounds congested, Pt with harsh dry CRITICAL CARE NURSE PRACTITIONER cough on command. BBS diminished in bases Pt with Sarcoidosis. On prednisone, upcoming pulmonology appointment with [facility]. Pt would benefit from a sleep study. PT is not acidotic or hypercapnic on VBG, which is reasuring for oxygen use. Use oxygen as needed to keep SPO2 88-92% via NC or oxymask. Pt states she uses an Inogen at home. These operate different than standard continuous flow oxygen. It is pulse dose, based on breathing rate and inspiratory flow. Will need to evaluate if this continues to be a good option for her closer to discharge.
--- NOTE | 2025-07-01 19:31 | PC.NURSE ---
End of Shift: Patient pleasant and cooperative, A&O. VSS, afebrile. SpO2 maintained above 88% on 2-3L O2. SOB w/ activity. BSC due to SOB. Tolerating regular diet. Denies pain this shift.
[2025-07-01] MEDS: BENZOCAINE/MENTHOL 1 EACH LOZENGE MUCOUS MEM (20:45)
[2025-07-01] MEDS: ACETAMINOPHEN 325 MG TABLET 650 MG PO (20:46)
[2025-07-01] MEDS: SODIUM CHLORIDE 0.9 % (FLUSH) 10 ML SYRINGE 5 ML IVF (20:46)
[2025-07-01] MEDS: ENOXAPARIN 40 MG/0.4 ML INJ SUBCUT (20:46)
[2025-07-02] VITALS (7 sets, daily range): BP systolic 133–155; BP diastolic 59–77; PULSE 53–83; RESP 16–20; TEMP 35.9–36.5; O2SAT 89–96
[2025-07-02] MEDS: IPRAT-ALBUT 0.5-2.5 MG/3 ML NEB 1 NEB IH ×5 (00:07→19:18)
[2025-07-02] MEDS: BENZOCAINE/MENTHOL 1 EACH LOZENGE MUCOUS MEM ×2 (06:28→20:56)
[2025-07-02 06:55] LABS: Hematocrit* 37.6 % (33.0-51.0); Hemoglobin* 11.2 gm/dL (12.0-16.0); Immature Granulocytes Abs Auto 0.04 K/uL (0.00-0.30); Immature Granulocytes Pct Auto 0.4 %; Lymphocytes Absolute Auto 0.40 K/uL (0.90-2.90); Mean Corpuscular HGB Conc 30 gm/dL (32-36); Mean Corpuscular Hemoglobin 26 pg (26-34); Mean Corpuscular Volume 88 fL (80-100); RDW Coefficient of Variation % 16.7 % (11.5-15.5); Red Blood Count* 4.29 m/uL (4.00-5.20); Slide Review Reflex No; White Blood Count* 9.62 K/uL (4.50-11.00)
[2025-07-02 07:14] LABS: Albumin* 4.1 g/dL (3.3-5.0); Chloride* 103 mmol/L (96-114); Potassium* 4.7 mmol/L (3.6-5.1); Sodium* 136 mmol/L (135-149)
[2025-07-02 07:17] LABS: Alanine Aminotransferase* 34 U/L (4-35); Alkaline Phosphatase* 77 U/L (40-150); Anion Gap 9 mEq/L (7-15); Aspartate Amino Transferase* 42 U/L (12-35); Bilirubin Total* 0.5 mg/dL (0.1-1.5); Blood Urea Nitrogen* 26 mg/dL (7-30); Carbon Dioxide* 24 mmol/L (20-32); Creatinine* 1.1 mg/dL (0.5-1.5); Est. Creatinine Clearance* 44.62; Estimated Glomerular Filt Rate 56 ml/min; Total Protein* 6.8 g/dL (6.0-8.3)
[2025-07-02 07:18] LABS: Calcium* 9.3 mg/dL (8.4-10.6); Glucose* 115 mg/dL (60-115)
--- NOTE | 2025-07-02 07:36 | PC.NURSE ---
End of shift: Pt alert and oriented. O2 sats remained above 90% on 3L O2 via oxymask. Other VSS. SOB with exertion. PRN duonebs utilized. SBA. This AM pt used commode as toilet, staff noticed clots after pt was done. Notified Charge nurse and MD (Patel). pt in bed, appears to be resting, call light within reach.
[2025-07-02] MEDS: ASPIRIN 81 MG TABLET EC PO (08:51)
[2025-07-02] MEDS: AMLODIPINE 10 MG TABLET PO (08:51)
[2025-07-02] MEDS: CETIRIZINE HCL 10 MG TABLET PO (08:51)
[2025-07-02] MEDS: DOXYCYCLINE HYCLATE 100 MG PO ×2 (08:51→20:56)
[2025-07-02] MEDS: METOPROLOL TARTRATE 25 MG TABLET PO ×2 (08:51→20:55)
[2025-07-02] MEDS: SERTRALINE 50 MG TABLET PO (08:52)
[2025-07-02] MEDS: SODIUM CHLORIDE 0.9 % (FLUSH) 10 ML SYRINGE 5 ML IVF ×2 (08:52→20:57)
--- NOTE | 2025-07-02 14:47 | PM.IMPN1 ---
Assessment and Plan Assessment and plan (1) Acute hypoxemic respiratory failure: Problem comment: -in setting of chronic sarcoidosis, interstitial lung disease -awoke with oxygen saturations of 74% 06/30 -2 doses of methylprednisolone, now on oral prednisone (40 mg daily) - had previously been on a prednisone long taper of almost 18 months and was down to 6-7 mg a day -respiratory therapy for pulmonary support -Doxycycline,nebs, Furosemide -continue oxygen supplementation, weaning as able, to maintain saturations 88-92% -continue home medications for sarcoidosis -already has close follow-up with her aquatic centre manager later this month. Status: Acute (2) Sarcoidosis of lung: Problem comment: -Dx 2015 following a skin/lump biopsy -current treatment prednisone 7 mg daily & azathioprine 100 mg HS, in addition to Ventolin and DuoNebs. -patient is following aquatic centre manager at [facility], last appointment was 3 months ago and she has follow-up appointment on July 16. -patient received 2 doses of methylprednisone IV - then transition to oral prednisone on the morning of 07/01/2025 -CT chest: New small peripheral consolidation within the inferior lingula compared to 2022, most compatible with atelectasis or scarring. To consider follow up CT in 3 months to document stability. Status: Acute (3) Sleep apnea: Problem comment: -presumed, needs outpatient sleep study Status: Chronic (4) Anxiety: Problem comment: -Previous admission: Got Ativan for a panic attack. Tried hydroxyzine - ineffective -oral prn ativan, continue daily Sertraline Status: Acute (5) Thyroid nodule incidentally noted on imaging study: Problem comment: CT: -Prominent right thyroid likely reflecting nodularity. Routine follow-up thyroid ultrasound is recommended. Status: Acute (6) Hypertension: Problem comment: On amlodipine, hydralazine and beta-patricia Status: Chronic (7) Morbid obesity: Problem comment: needs GLP1 and aggressive weight loss Status: Acute Plan - continue management of hypoxic respiratory failure as above - likely home 1-2 days Subjective Date Seen: 07/02/25 Interval history: Viktoria was admitted to the hospital on 06/30/25 for acute on chronic respiratory failure. History of sarcoidosis, asthma, likely JUAN and pulmonary HTN. Has been on chronic prednisone with her Pulmonology team. Working with RT. On home O2. Treated with Doxycycline, 40mg of Prednisone daily, nebs. Slowly improving, still dyspneic even up to just use the bathroom. TTE obtained 07/01 with results below: ? Final Impressions: 1. Echo contrast was administered to enhance visualization of all left ventricular segments. 2. Normal LV size, mildly increased wall thickness, normal global systolic function with an estimated EF of 55 - 60%. 3. Right ventricular cavity size is normal, global systolic RV function is normal. 4. The aortic valve is trileaflet and sclerotic, no stenosis and no regurgitation. 5. Normal sized ascending aorta, diameter of 3.8 cm (upper limit of normal for age, sex, and BSA is 3.9 cm*), Height Index 2.32. 6. Normal estimated RA (3 mmHg) and RV systolic (29 mmHg) pressures. ? Exam Narrative: Exam Narrative: GEN: Alert HEENT: EOMIs bilaterally, no scleral icterus CV: RRR, No concerning murmurs R: Wheezing throughout bilateral lung wheatley, more notable in the apices Ext: wwp, 1-2+ BLE edema Skin: No concerning skin lesions or rashes on exposed skin Neuro: Nonfocal Psych: Appropriate Const: Vital Signs, click to edit/add: Vital Signs - 24 hr 07/01/25 15:00 07/01/25 15:00 07/01/25 15:30 Temperature 97.2 F L Pulse Rate 78 Pulse Rate [Pulse Oximeter] 85 Respiratory Rate 18 18 Blood Pressure [Ri ght Arm] 143/69 H Pulse Oximetry 91 91 Oxygen Delivery Me thod Nasal Cannula Nasal Cannula Oxygen Flow Rate 2 2 07/01/25 15:30 07/01/25 19:45 07/01/25 23:00 Temperature 97.6 F Pulse Rate 69 Pulse Rate [Pulse Oximeter] 85 81 Respiratory Rate 18 18 Blood Pressure [Ri ght Arm] 144/67 H Pulse Oximetry 96 Oxygen Delivery Me thod Oxygen Flow Rate 3 07/01/25 23:00 07/01/25 23:00 07/01/25 23:45 Temperature 97.9 F Pulse Rate Pulse Rate [Pulse Oximeter] 70 70 Respiratory Rate 18 20 20 Blood Pressure [Ri ght Arm] 140/76 H Pulse Oximetry 97 97 Oxygen Delivery Me thod Oxygen Flow Rate 3 3 07/02/25 03:25 07/02/25 06:57 07/02/25 08:15 Temperature 97.6 F Pulse Rate 71 Pulse Rate [Pulse Oximeter] 53 L Respiratory Rate 18 18 Blood Pressure [Ri ght Arm] 133/72 Pulse Oximetry 96 91 Oxygen Delivery Me thod OxyMask OxyMask Oxygen Flow Rate 3 07/02/25 08:15 07/02/25 08:15 07/02/25 11:54 Temperature 97.6 F 97.2 F L Pulse Rate Pulse Rate [Pulse Oximeter] 83 83 68 Respiratory Rate 18 18 18 Blood Pressure [Ri ght Arm] 147/77 H 149/73 H Pulse Oximetry 91 92 Oxygen Delivery Me thod OxyMask Room Air Oxygen Flow Rate 3 Labs Labs: Laboratory Results - last 24 hr 07/02/25 06:05 WBC 9.62 RBC 4.29 Hgb 11.2 L Hct 37.6 MCV 88 MCH 26 MCHC 30 L RDW Coeff of Donna 16.7 H Plt Count 285 Neut % (Auto) 89.6 H Lymph % (Auto) 4.5 L Ransom % (Auto) 5.5 Eos % (Auto) 0.0 Baso % (Auto) 0.0 Neut # (Auto) 8.60 H Lymph # (Auto) 0.40 L Ransom # (Auto) 0.50 Eos # (Auto) 0.00 Baso # (Auto) 0.00 Abs Immat Gran (auto) 0.04 Imm/Tot Granulo (auto) 0.4 Sodium 136 Potassium 4.7 Chloride 103 Carbon Dioxide 24 Anion Gap 9 BUN 26 Creatinine 1.1 Estimated Creat Clear 44.62 Estimated GFR 56 Glucose 115 Calcium 9.3 Total Bilirubin 0.5 AST 42 H ALT 34 Alkaline Phosphatase 77 C-Reactive Protein 1.2 H Total Protein 6.8 Albumin 4.1
--- NOTE | 2025-07-02 15:00 | PC.NURSE ---
End of shift: pt has been very pleasant, she is alert and oriented. no pain. O2 sats remained above 87% on RA., she need to on 3L O2 via oxymask. with activity. we have been leaving it on for a few minutes till she does not feel SOB. SOB with exertion. PRN duo nebs . not alot of help. she is eating, drinking and voiding with no problems.
[2025-07-02] MEDS: ENOXAPARIN 40 MG/0.4 ML INJ SUBCUT (20:56)
--- NOTE | 2025-07-02 23:22 | PC.NURSE ---
pt a/o x4, ind in room.Pt had one episode of SOB and wheezing, prn neb given. no pain reported during shift. Oximask, and extended O2 tubing set up in room. pt is sitting up in bed w/ no concerns at this time
[2025-07-03] VITALS (7 sets, daily range): BP systolic 137–148; BP diastolic 64–79; PULSE 68–77; RESP 17–20; TEMP 36.3–36.6; O2SAT 84–89
[2025-07-03] MEDS: BENZOCAINE/MENTHOL 1 EACH LOZENGE MUCOUS MEM (01:08)
--- NOTE | 2025-07-03 05:37 | PC.NURSE ---
Shift note ([id number]): Patient pleasant, alert and oriented. Ambulating independently in room. Needed O2 at times during the night to keep sats above 88%. Denied pain.?
[2025-07-03 07:12] LABS: HCO3 VBG 27 mmol/L (21-28); PCO2 VBG 49 mmHG (40-50); PO2 VBG 43.4 mmHG (25-47); pH VBG 7.347 (7.32-7.43)
[2025-07-03 07:33] LABS: Chloride* 109 mmol/L (96-114); Hematocrit* 35.2 % (33.0-51.0); Hemoglobin* 10.7 gm/dL (12.0-16.0); Immature Granulocytes Abs Auto 0.02 K/uL (0.00-0.30); Immature Granulocytes Pct Auto 0.3 %; Mean Corpuscular HGB Conc 30 gm/dL (32-36); Mean Corpuscular Hemoglobin 26 pg (26-34); Mean Corpuscular Volume 87 fL (80-100); Potassium* 3.9 mmol/L (3.6-5.1); RDW Coefficient of Variation % 16.8 % (11.5-15.5); Red Blood Count* 4.05 m/uL (4.00-5.20); Sodium* 138 mmol/L (135-149); White Blood Count* 6.37 K/uL (4.50-11.00)
[2025-07-03 07:36] LABS: Anion Gap 3 mEq/L (7-15); Blood Urea Nitrogen* 30 mg/dL (7-30); Calcium* 9.1 mg/dL (8.4-10.6); Carbon Dioxide* 26 mmol/L (20-32); Creatinine* 1.1 mg/dL (0.5-1.5); Est. Creatinine Clearance* 44.62; Estimated Glomerular Filt Rate 56 ml/min; Glucose* 89 mg/dL (60-115)
[2025-07-03 07:38] LABS: Lymphocytes Absolute Auto 0.80 K/uL (0.90-2.90); Slide Review Reflex No
[2025-07-03] MEDS: AMLODIPINE 10 MG TABLET PO (09:32)
[2025-07-03] MEDS: ASPIRIN 81 MG TABLET EC PO (09:32)
[2025-07-03] MEDS: METOPROLOL TARTRATE 25 MG TABLET PO (09:32)
[2025-07-03] MEDS: CETIRIZINE HCL 10 MG TABLET PO (09:32)
[2025-07-03] MEDS: SERTRALINE 50 MG TABLET PO (09:32)
[2025-07-03] MEDS: IPRAT-ALBUT 0.5-2.5 MG/3 ML NEB 1 NEB IH ×2 (09:33→12:47)
[2025-07-03] MEDS: DOXYCYCLINE HYCLATE 100 MG PO (09:33)
--- NOTE | 2025-07-03 11:13 | P.DS_ITS ---
DS: Providers Provider Date Seen: 07/03/25 Date of admission: 06/30/25 20:58 Primary care physician: Not a Local Provider Admitting Clinician: Anastacia Jacques MD Attending Physician on discharge: Christianne Sweeney MD Date of Discharge: 07/03/25 DS: Diagnosis Discharge Diagnosis (1) Acute hypoxemic respiratory failure: Status: Acute Problem details: -in setting of chronic sarcoidosis, interstitial lung disease -awoke with oxygen saturations of 74% 06/30 -IV Solumedrol x2 ->oral Prednisone (40 mg daily); previously on a prednisone long taper of almost 18 months and was down to 6-7mg QD prior to admit -RT followed during stay -Doxycycline,nebs, Furosemide -continue oxygen supplementation, weaning as able, to maintain saturations 88- 92% -continue home medications for sarcoidosis -already has close follow-up with her tray line worker this month (2) Sarcoidosis of lung: Status: Acute Problem details: -Dx 2015 following a skin/lump biopsy -current treatment prednisone 7 mg daily & azathioprine 100 mg HS, in addition to Ventolin and DuoNebs. -patient is following tray line worker at [facility], last appointment was 3 months ago and she has follow-up appointment on July 16. -treated with steroids per above -CT chest: New small peripheral consolidation within the inferior lingula compared to 2022, most compatible with atelectasis or scarring, consider follow up CT in 3 months to document stability. (3) Sleep apnea: Status: Chronic Problem details: -presumed, needs outpatient sleep study (4) Anxiety: Status: Acute Problem details: -Previous admission: Got Ativan for a panic attack. Tried hydroxyzine - ineffective -oral prn ativan, continue daily Sertraline (5) Thyroid nodule incidentally noted on imaging study: Status: Acute Problem details: CT: -Prominent right thyroid likely reflecting nodularity. Routine follow-up thyroid ultrasound is recommended. (6) Hypertension: Status: Chronic Problem details: On amlodipine, hydralazine and beta-patricia (7) Morbid obesity: Status: Acute DS: Summary Hospital Course Hospital Course: Viktoria was admitted to the hospital on 06/30/25 for acute on chronic respiratory failure. History of sarcoidosis, asthma, likely JUAN and pulmonary HTN. Has been on chronic prednisone with her Pulmonology team (6-7mg daily prior to admission) Worked with RT during stay. On home O2 at baseline. Treated with Doxycycline, 40mg of Prednisone daily, nebs. Improved and back to baseline, appropriate for discharge home on 07/03/25. TTE obtained 07/01 with results below: ? Final Impressions: 1. Echo contrast was administered to enhance visualization of all left ventricular segments. 2. Normal LV size, mildly increased wall thickness, normal global systolic function with an estimated EF of 55 - 60%. 3. Right ventricular cavity size is normal, global systolic RV function is normal. 4. The aortic valve is trileaflet and sclerotic, no stenosis and no regurgitation. 5. Normal sized ascending aorta, diameter of 3.8 cm (upper limit of normal for age, sex, and BSA is 3.9 cm*), Height Index 2.32. 6. Normal estimated RA (3 mmHg) and RV systolic (29 mmHg) pressures. Improved and back to baseline, appropriate for discharge home on 07/03/25. Status at Discharge Functional status at discharge: independent ambulation Overall status at discharge: patient is progressing back to baseline Time Spent with Patient Time attestation: Total time spent providing and/or coordinating discharge services: Time spent: Greater than 30 minutes Specific discharge activities: Medication reconciliation, patient education Exam Narrative: Exam Narrative: GEN: Alert and oriented, laying comfortably in bed on room air and not dyspneic at baseline HEENT: EOMIs bilaterally, no scleral icterus CV: RRR, No concerning murmurs R: Mild apical wheezing bilaterally, bibasilar rhonchi Ext: 1-2+ bilateral lower extremity edema, baseline Skin: No concerning skin lesions or rashes on exposed skin Neuro: Nonfocal Psych: Appropriate Const: Vital Signs, click to edit/add: Vital Signs - 24 hr 07/02/25 11:54 07/02/25 15:00 07/02/25 15:00 Temperature 97.2 F L 97.7 F Pulse Rate 78 Pulse Rate [Pulse Oximeter] 68 78 Respiratory Rate 18 16 Blood Pressure [Ri ght Arm] 149/73 H 139/59 L Pulse Oximetry 92 89 Oxygen Delivery Me thod Room Air Room Air Oxygen Flow Rate 07/02/25 15:00 07/02/25 15:00 07/02/25 19:00 Temperature 96.6 F L Pulse Rate Pulse Rate [Pulse Oximeter] 78 83 Respiratory Rate 16 16 20 Blood Pressure [Ri ght Arm] 155/64 H Pulse Oximetry 89 94 Oxygen Delivery Me thod Room Air Room Air Oxygen Flow Rate 3 07/02/25 23:00 07/03/25 01:02 07/03/25 01:02 Temperature 97.6 F Pulse Rate 60 Pulse Rate [Pulse Oximeter] 68 Respiratory Rate 17 17 Blood Pressure [Ri ght Arm] 137/67 Pulse Oximetry 88 88 Oxygen Delivery Me thod Room Air Room Air Oxygen Flow Rate 07/03/25 04:53 07/03/25 07:53 07/03/25 08:30 Temperature 97.3 F L 97.9 F Pulse Rate 71 Pulse Rate [Pulse Oximeter] 71 77 Respiratory Rate 20 18 Blood Pressure [Ri ght Arm] 147/69 H 143/64 H Pulse Oximetry 88 84 L Oxygen Delivery Me thod Room Air Room Air Oxygen Flow Rate 07/03/25 08:42 07/03/25 09:30 Temperature Pulse Rate Pulse Rate [Pulse Oximeter] 77 Respiratory Rate 18 18 Blood Pressure [Ri ght Arm] Pulse Oximetry 84 L Oxygen Delivery Me thod Room Air Oxygen Flow Rate DS: Data Data Completed and Pending Labs on day of discharge: Labs from last 24 hours 07/03/25 06:30 WBC 6.37 RBC 4.05 Hgb 10.7 L Hct 35.2 MCV 87 MCH 26 MCHC 30 L RDW Coeff of Donna 16.8 H Plt Count 272 Neut % (Auto) 79.1 H Lymph % (Auto) 11.9 L Carolina % (Auto) 8.5 Eos % (Auto) 0.0 Baso % (Auto) 0.2 Neut # (Auto) 5.00 Lymph # (Auto) 0.80 L Carolina # (Auto) 0.50 Eos # (Auto) 0.00 Baso # (Auto) 0.01 Abs Immat Gran (auto) 0.02 Imm/Tot Granulo (auto) 0.3 VBG pH 7.347 VBG pCO2 49 VBG pO2 43.4 VBG HCO3 27 Sodium 138 Potassium 3.9 Chloride 109 Carbon Dioxide 26 Anion Gap 3 L BUN 30 Creatinine 1.1 Estimated Creat Clear 44.62 Estimated GFR 56 Glucose 89 Calcium 9.1 Preliminary micro results at discharge 07/01/25 13:00 Viral Culture, Respiratory - Preliminary Nasal - Nasal Discharge Plan Discharge Disposition: Home, Self-Care Date of Admission: 06/30/25 20:58 Attending Provider on Discharge: Christianne Sweeney Primary Care Provider: Provider,Not a Local Condition: Improved Anticipated Discharge Date/Time: 07/03/25 10:12 Discharge Medications: New prednisone 10 mg tablet 10 mg PO DAILY Qty: 42 0RF Rx Instructions: 4 tabs po x3 more days, then 3 tabs daily x3d, then 2 tabs daily x7d, then 1 tab daily. doxycycline hyclate 100 mg Tablet 100 mg PO BID 5 Days Qty: 10 0RF Continued acetaminophen 325 mg tablet 650 mg PO Q4H PRN prednisone 1 mg tablet 3 mg PO DAILY hydroxyzine pamoate 25 mg Capsule 25 mg PO TID PRN (Reason: Anxiety) hydralazine 25 mg tablet 25 mg PO BID amlodipine 10 mg tablet 10 mg PO DAILY azathioprine 100 mg tablet 100 mg PO HS aspirin [Adult Aspirin Regimen] 81 mg tablet,delayed release (DR/EC) 81 mg PO DAILY ipratropium-albuterol 0.5 mg-3 mg(2.5 mg base)/3 mL solution for nebulization 3 ml inhalation Q6H PRN cetirizine [All Day Allergy (cetirizine)] 10 mg tablet 10 mg PO DAILY sertraline 50 mg tablet 50 mg PO DAILY ondansetron 4 mg tablet,disintegrating 4 mg PO Q8H PRN furosemide 40 mg tablet 40 mg PO DAILY PRN magnesium gluconate 30 mg (550 mg) tablet 30 mg PO BID metoprolol tartrate 25 mg tablet 25 mg PO BID albuterol sulfate 90 mcg/actuation HFA aerosol inhaler 2 inh inhalation Q4H PRN Discontinued prednisone 5 mg tablet 5 mg PO DAILY Discharge Orders: Discharge Order (Routine); Ordered 07/03/25 Ordered By: Christianne Sweeney Patient Education: Doxycycline (By mouth), Prednisone (By mouth), Acute Respiratory Failure (GEN) Additional Instructions: Cepacol lozenges are similar to what you've been receiving here. Steroid taper and 5 more days of antibiotics sent to pharmacy. Continue home oxygen per previous and keep your appointment with Pulmonology Activity Level: Activity as Tolerated Discharge Diet: Regular Follow Up Appointments: Provider,Not a Local [Primary Care Provider, Family Practice] Referral Note: Keep appointment with Pulmonology as scheduled Forms: Work/School Release, MyHealth Info Instructions
--- NOTE | 2025-07-03 15:59 | PC.NURSE ---
Nursing Care Hours: [id number] Pt this shift calm and cooperative. Oriented but tired, remained in bed this shift. Refused meals d/t low appetite. Indpendent ambulation in the room. Tolerating using O2 independently. PRN duonebs given for wheezing. dc instructions went over with pt.
== END 2025-07-03 15:57 | disposition home or self-care (01) | DRG 189 ==
LOC: ED 20:01 → MEDSURG 07-01 05:43
PROVIDERS: Family Medicine; Admitting Provider Student in an Organized Health Care Education/Training Program; Emergency Provider Family Medicine; Visit Provider Student in an Organized Health Care Education/Training Program
DX: J96.01 Acute respiratory failure with hypoxia (principal); Z68.43 Body mass index [BMI] 50.0-59.9, adult; J84.9 Interstitial pulmonary disease, unspecified; D86.0 Sarcoidosis of lung; E66.01 Morbid (severe) obesity due to excess calories; J43.9 Emphysema, unspecified; I10 Essential (primary) hypertension; F41.9 Anxiety disorder, unspecified; I67.1 Cerebral aneurysm, nonruptured; G47.33 Obstructive sleep apnea (adult) (pediatric); Z87.891 Personal history of nicotine dependence; E04.1 Nontoxic single thyroid nodule; Z86.711 Personal history of pulmonary embolism; Z79.82 Long term (current) use of aspirin; Z79.52 Long term (current) use of systemic steroids
CPT/HCPCS: 36415; 71046; 71250; 80048; 80053; 80076; 82803; 83605; 83735; 83880; 84484; 85025; 85027; 86140; 87252; 87631; 93005; 93306; 94761; 96361; 96374; 96375; 99285; A9270; J1650; J2405; J2919; J7030; J7500; J7512; Q9957